=== PATIENT | female | born 1975 | race Caucasian/White ===

== ENCOUNTER 2021-10-10 16:56 | Outpatient (REF) | payer OTHER, SELFPAY ==
[2021-10-11 15:14] LABS: H Pylori Breath Test Negative (Negative)
== END 2021-10-10 16:57 | disposition home or self-care (01) ==
LOC: HO.LNP 16:56
PROVIDERS: Visit Provider Physician Assistant Surgical
DX: E66.9 Obesity, unspecified (principal)
CPT/HCPCS: 83013

== ENCOUNTER → 2021-11-02 12:00 | Outpatient (BNVA) | payer OTHER, SELFPAY | PROVIDERS: PCP Internal Medicine; Visit Provider Counselor Mental Health | DX: F41.1 Generalized anxiety disorder (principal); E66.9 Obesity, unspecified; G93.2 Benign intracranial hypertension | CPT/HCPCS: 90791; 97802 ==

== ENCOUNTER 2021-11-21 09:01 | Outpatient (REF) | payer OTHER, SELFPAY ==
--- NOTE | ~2021-11-21 | XR_ITS ---
EXAMINATION: XR CHEST CLINICAL INFORMATION: Obesity. COMPARISON: None TECHNIQUE: 2 views of the chest were obtained. FINDINGS: No significant abnormality is noted involving the heart, lungs, mediastinum, bony thorax or soft tissues. XR/XR chest 2V IMPRESSION: Unremarkable chest examination.
--- NOTE | 2021-11-21 09:10 | ECG_ITS ---
Test Reason : OBESITY Blood Pressure : / mmHG Vent. Rate : 058 BPM Atrial Rate : 058 BPM P-R Int : 168 ms QRS Dur : 080 ms QT Int : 400 ms P-R-T Axes : 026 005 025 degrees QTc Int : 392 ms Sinus bradycardia with sinus arrhythmia Otherwise normal ECG No previous ECGs available Referred By: Moshe Rene Electronically Signed By:JONI LIPSCOMB
[2021-11-21 09:37] LABS: MANUAL DIFF FLAG NO
[2021-11-21 10:08] LABS: Basophils Percent Auto 0.3 % (0-2); Eosinophils Absolute Auto 0.1 X10*3/uL (0.0-0.4); Eosinophils Percent Auto 1.8 % (0-4); Hematocrit 37.9 % (37.0-47.0); Hemoglobin 12.3 g/dl (12.0-16.0); Imm Gran Abs Auto 0.03 X10*3/uL (0.00-0.03); Imm Gran Pct Auto 0.4 % (0.0-0.4); Lymphocytes Absolute Auto 1.6 X10*3/uL (1.2-4.9); Lymphocytes Percent Auto 23.7 % (20-40); Mean Corpuscular HGB Conc 32.5 g/dl (31.0-35.0); Mean Corpuscular Hemoglobin 29.6 pg (27.0-33.0); Mean Corpuscular Volume 91.1 fL (80.0-98.0); Mean Platelet Volume 10.4 fL (9.4-12.3); Monocytes Absolute Auto 0.5 X10*3/uL (0.1-1.2); Monocytes Percent Auto 6.6 % (2-11); Neutrophils Absolute Auto 4.6 x10*3/uL (2.0-8.3); Neutrophils Percent Auto 67.2 % (45-73); Platelet Count 326 X10*3/uL (160-400); Red Blood Count 4.16 X10*6/uL (4.20-5.50); White Blood Count 6.8 X10*3/uL (4.8-10.8)
[2021-11-21 10:23] LABS: Estimated Average Glucose 120 mg/dL; Hemoglobin A1c % 5.8 %
[2021-11-21 10:41] LABS: Alanine Aminotransferase 13 U/L (0-31); Albumin Level 4.6 g/dL (3.5-5.0); Alkaline Phosphatase 58 U/L (39-117); Anion Gap 14 (12-20); Aspartate Amino Transferase 13 U/L (5-31); Bilirubin Total 0.5 mg/dL (0.0-1.0); Blood Urea Nitrogen 16 mg/dL (9-16); C Reactive Protein 0.58 mg/dL (< or = 0.50); Calcium 9.5 mg/dL (8.4-10.2); Carbon Dioxide 25 mmol/L (22-29); Chloride 105 mmol/L (96-108); Cholesterol 173 mg/dL; Estimated Glomerular Filt Rate > 60; Glucose Random 110 mg/dL (60-115); HDL Cholesterol 38 mg/dL; Iron 82 mcg/dL (30-160); LDL Cholesterol Calculated 121 mg/dl; Potassium 4.1 mmol/L (3.3-5.1); Sodium 140 mmol/L (135-145); Total Protein 7.4 g/dL (6.5-8.0); Triglycerides 74 mg/dL
[2021-11-21 11:00] LABS: Percent Iron Saturation 26 % (15-50); Total Iron Binding Capacity 317 mcg/dL (228-428); Unsaturated Iron Binding 235 ug/dL
[2021-11-21 11:04] LABS: Ferritin 208 ng/mL (10-250); TSH reflex Free T4 0.82 uIU/mL (0.32-4.0); Vitamin D 25-OH Total 57.3 ng/mL (>30)
[2021-11-21 11:32] LABS: Folate 10.1 ng/mL (> or = 4.0); Vitamin B12 697 pg/mL (200-900)
[2021-11-21 11:35] LABS: Insulin 8 uU/mL (2-29)
[2021-11-22 11:46] LABS: Calcium (PTHI) 9.6 mg/dL (8.6-10.2); PTHI 42 pg/mL (16-77)
[2021-11-24 16:17] LABS: Zinc 71 mcg/dL (60-130)
[2021-11-25 12:57] LABS: Vitamin B1 7 nmol/L (8-30)
[2021-11-25 17:47] LABS: Vitamin A 45 mcg/dL (38-98)
== END 2021-11-21 09:02 | disposition home or self-care (01) ==
LOC: HO.LAB 09:01
PROVIDERS: PCP Internal Medicine; Visit Provider Physician Assistant Surgical
DX: E66.9 Obesity, unspecified (principal)
CPT/HCPCS: 36415; 71046; 80053; 80061; 82306; 82607; 82728; 82746; 83036; 83525; 83540; 83970; 84425; 84443; 84590; 84630; 85025; 86140; 93005

== ENCOUNTER 2021-11-30 08:22 | Outpatient (REF) | payer OTHER, SELFPAY ==
--- NOTE | ~2021-11-30 | US_ITS ---
EXAMINATION: US COMPLETE ABDOMEN WITH LIVER ELASTOGRAPHY CLINICAL INFORMATION: Obesity. COMPARISON: None. TECHNIQUE: Real-time imaging of the abdominal viscera. Noninvasive ultrasound liver fibrosis assessment is performed using Wilfredo ElastPQ point quantification shear wave elastography (2D-SWE) with a C5-2 MHz transducer. Multiple elastography samples are obtained. FINDINGS: PANCREAS: Normal. ABDOMINAL AORTA: The proximal, middle, and distal aortic segments are normal in caliber. INFERIOR VENA CAVA: Visualized portions are normal. LIVER: Normal. The liver demonstrates normal size, contour and echogenicity. No focal lesion or intrahepatic biliary duct dilatation. The right lobe measures 14 cm in length. The left lobe measures 11 cm in length. Portal flow is normal/hepatopetal. Shear wave liver elastography median stiffness is 2.2 m/s (reference: normal median stiffness is 1.3 m/s or less). IQR/median stiffness to assess sampling precision is 0.11 (reference: good quality data set is IQR/median stiffness of 0.15 or less). GALLBLADDER: Normal. The gallbladder is physiologically distended without evidence of stones, sludge, polyps, wall thickening or pericholecystic fluid. COMMON BILE DUCT: Normal in caliber measuring 0.4 cm in diameter. RIGHT KIDNEY: Normal. No hydronephrosis. No renal calculi or focal parenchymal lesions. The kidney measures 12.9 cm in maximum dimension. LEFT KIDNEY: Normal. No hydronephrosis. No renal calculi or focal parenchymal lesions. The kidney measures 12.6 cm in maximum dimension. SPLEEN: Normal. The spleen measures 9.6 cm in maximum dimension. FREE FLUID: None. US/US abdomen comp w elastography IMPRESSION: 1. Unremarkable exam. 2. Liver elastography. Adequate liver sampling. Increased liver stiffness suggestive of compensated advanced chronic liver disease. REFERENCE: Society of Radiologists in Ultrasound Liver Stiffness Thresholds (2020): LIVER STIFFNESS THRESHOLDS: *Liver Stiffness equal or less than 1.3 m/s: High probability of being normal. *Liver Stiffness less than 1.7 m/s: In the absence of other known clinical signs, rules out compensated advanced chronic liver disease. *Liver Stiffness 1.7-2.1 m/s: Suggestive of compensated advanced chronic liver disease but need further test for confirmation. *Liver Stiffness over 2.1 m/s: Rules in compensated advanced chronic liver disease. *Liver Stiffness over 2.4 m/s: Suggestive of clinically significant portal hypertension. QUALITY OF DATA SET: *IQR/Median value equal or less than 0.15 implies a quality data set. *IQR/Median value over 0.15 implies a poor quality data set. SIGNIFICANT CHANGE FROM PRIOR EXAM: Significant change if liver stiffness measurement is 10% or greater from prior exam. OTHER CONSIDERATIONS: The stage of liver fibrosis may be overestimated in the setting of acute hepatitis, liver inflammation, elevated liver function tests, hepatic vascular congestion, obstructive cholestasis, non-fasting state, and infiltrative diseases such as amyloidosis and lymphoma. In some patients with NAFLD, the liver stiffness thresholds for compensated advanced chronic liver disease may be lower. In causes other than viral hepatitis and NAFLD, liver stiffness thresholds are not well established.
--- NOTE | ~2021-11-30 | FL_ITS ---
EXAMINATION: XR FLUOROSCOPY UPPER GI WITH AIR CLINICAL INFORMATION: Obesity COMPARISON: None TECHNIQUE: Upper GI was performed using thin and thick barium and effervescent granules. FINDINGS: Esophageal motility is normal. There is mild gastroesophageal reflux. No hernia is seen. The stomach and duodenum are normal-appearing. No fold thickening, mass, stricture or ulcer is seen. FLUOROSCOPY TIME: 0.3 minutes DOSE AREA PRODUCT: 3.3 echeverria per centimeter squared. 16 saved fluoroscopic images. FL/FL upper GI w air IMPRESSION: Mild gastroesophageal reflux otherwise unremarkable exam.
== END 2021-11-30 08:23 | disposition home or self-care (01) ==
LOC: HO.US 08:22
PROVIDERS: PCP Internal Medicine; Visit Provider Physician Assistant Surgical
DX: Z01.818 Encounter for other preprocedural examination (principal); E66.9 Obesity, unspecified
CPT/HCPCS: 74246; 76705; 76981

== ENCOUNTER 2021-12-09 08:27 | Outpatient (REF) | payer OTHER, SELFPAY ==
[2021-12-09 08:43] LABS: MANUAL DIFF FLAG NO
[2021-12-09 08:59] LABS: Basophils Percent Auto 0.4 % (0-2); Eosinophils Absolute Auto 0.2 X10*3/uL (0.0-0.4); Eosinophils Percent Auto 2.8 % (0-4); Hematocrit 38.2 % (37.0-47.0); Hemoglobin 12.5 g/dl (12.0-16.0); Imm Gran Abs Auto 0.02 X10*3/uL (0.00-0.03); Imm Gran Pct Auto 0.4 % (0.0-0.4); Lymphocytes Absolute Auto 1.5 X10*3/uL (1.2-4.9); Lymphocytes Percent Auto 25.9 % (20-40); Mean Corpuscular HGB Conc 32.7 g/dl (31.0-35.0); Mean Corpuscular Hemoglobin 29.6 pg (27.0-33.0); Mean Corpuscular Volume 90.5 fL (80.0-98.0); Mean Platelet Volume 10.2 fL (9.4-12.3); Monocytes Absolute Auto 0.3 X10*3/uL (0.1-1.2); Monocytes Percent Auto 5.9 % (2-11); Neutrophils Absolute Auto 3.7 x10*3/uL (2.0-8.3); Neutrophils Percent Auto 64.6 % (45-73); Platelet Count 267 X10*3/uL (160-400); Red Blood Count 4.22 X10*6/uL (4.20-5.50); Red Cell Distribution Width 12.3 % (11.0-16.0); White Blood Count 5.6 X10*3/uL (4.8-10.8)
[2021-12-09 09:39] LABS: Anion Gap 15 (12-20); Blood Urea Nitrogen 18 mg/dL (9-16); Calcium 9.9 mg/dL (8.4-10.2); Carbon Dioxide 26 mmol/L (22-29); Chloride 104 mmol/L (96-108); Estimated Glomerular Filt Rate > 60; Glucose Random 99 mg/dL (60-115); Potassium 4.5 mmol/L (3.3-5.1); Sodium 140 mmol/L (135-145)
== END 2021-12-09 08:28 | disposition home or self-care (01) ==
LOC: HO.LAB 08:27
PROVIDERS: Visit Provider Surgery
DX: E66.9 Obesity, unspecified (principal); G93.2 Benign intracranial hypertension; G47.33 Obstructive sleep apnea (adult) (pediatric); F41.1 Generalized anxiety disorder
CPT/HCPCS: 36415; 80048; 85025

== ENCOUNTER 2021-12-13 09:50 | Inpatient (IN) | payer OTHER, SELFPAY ==
[2021-12-08 10:34] VITALS: BMI 33.6
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
[2021-12-13] VITALS (13 sets, daily range): BP systolic 101–145; BP diastolic 53–76; PULSE 47–69; RESP 15–20; TEMP 36.4–36.9; O2SAT 95–100
[2021-12-13 10:11] LABS: UPreg QC Valid YES; Urine Pregnancy NEGATIVE (NEGATIVE)
[2021-12-13 10:30] LABS: COVID-19 Test Negative (Negative); IDNOW Serial# 16C4AD1C
--- NOTE | 2021-12-13 10:46 | MHC.SHP ---
Pre-Procedural Eval Section A Date of Service: 12/13/21 The patient is an INPATIENT: Yes The History & Physical has been completed within 30 days and I have reviewed it.: Yes Section B Chief Complaint: Obesity Allergies: Allergies Allergy/AdvReac Type Severity Reaction Status Date / Time vancomycin Allergy Severe Rash Verified 12/08/21 10:27 tetracycline AdvReac Intermediate told to Verified 12/08/21 10:27 avoid due to intercranial hypertension Plan I have reviewed the history and physical and performed a pertinent physical examination on my patient. No changes have occurred unless specified.
--- NOTE | 2021-12-13 10:47 | P.OP_ITS ---
Operative Note Operative Note Date of Service: 12/13/21 Narrative: Preop diagnosis: [obesity, ANALI, Pseudotumor cerebri, intracranial HTN] Postop diagnosis: [same] Procedure: [Laparoscopic sleeve gastrectomy; intraoperative upper GI endoscopy; gastropexy] Surgeon: Brice Ryan MD Assist: [Maty Jhaveri PA-C] Anesthesia: [GET] Estimated blood loss: [3cc] Specimen: [] Intraoperative findings: [Grossly normal liver, stomach; no evidence of a hiatal hernia] Indications: [The patient is a 46-year-old woman with a lifelong struggle with obesity who reports a heaviest weight of 245 lb. She unrolled in a different hospital bariatric surgery program and presented to our hospital with a weight of 209.4 lb and a BMI of 37.1 with a comorbidities of obstructive sleep apnea, pseudotumor cerebri, and intracranial hypertension causing visual field distortion. After multiple attempts of medical management that resulted in weight gain, the patient sought advice regarding surgical weight loss. After reviewing the options including continued medical management, 2nd opinion, option of a sleeve verses a bypass, the patient wanted to proceed with sleeve gastrectomy. I reviewed the inherent risks of this procedure which include, but are not limited to: Bleeding that could require another operation or blood transfusion; the inherent risks of transfusion reaction infectious disease from blood transfusions; the risk of staple line leaks that could cause sepsis, multi-system organ failure and ; the risk of mesenteric or deep vein thrombosis of the lower extremities that could cause a fatal pulmonary embolism was reviewed; the risk of GERD that could require conversion to gastric bypass was discussed; the risk of recurrent hiatal hernia, especially in the setting of weight regain was reviewed. The risk of weight regain if maladaptive eating and sedentary behavior continue was discussed. The importance of proper diet and increased activity to augment surgical weight loss and the fact that no operation would result in weight loss of poor dietary decisions and sedentary behavior are resumed were discussed at length and apparently understood. The patient had the option of having a sheet metal superintendent present and declined this option.] Procedure: [The patient was identified in the preoperative holding area by myself and again in the operating suite by myself and the team. Patient was placed supine on the operating table. Safety straps were utilized and a fo otboard utilized. The patient was induced in general endotracheal anesthesia administered with excellent effect. An appropriate time-out was performed. The patient's abdomen was then widely prepped and draped in the usual manner for surgery using chlorhexidine. Antibiotics per protocol were administered by Anesthesia. After infiltrating preemptive local in the skin and subcutaneous tissues in the epigastrium approximately 10cm from the xiphoid and the midline of the epigastrium, a stab incision was made sharply in the left subcostal abdomen and the Veress needle inserted without incident. An appropriate drop test was performed then a pneumoperitoneum of 15 mmHg was obtained using carbon dioxide. Opening pressures were 7 mmHg. Next, a 5 mm 0 degree scope over a 5 mm Optiview trocar was used to access the abdomen via the epigastric incision in the midline. Once the abdomen was entered, the the trocar obturator was removed and the laparoscope was used to confirm there was no injury from the Veress needle nor trocar insertion injury to the bowel or mesentery, then the scope was switched to a 5 mm 45 degree laparoscope. Next, using preemptive local, additional 5 mm trocars were placed under direct laparoscopic vision on the patient's left abdomen, then right and the 5 mm midline trocar upsized to a 12 mm to accommodate the stapler. The patient was then positioned in reverse Trendelenburg and the liver retractor deployed through the right lateral 5 mm trocar and secured. A 40 [place] ViSiGi bougie was inserted by Anesthesia per os and advanced to the stomach to decompress. It was then withdrawn to the GE junction all under direct laparoscopic vision. Dissection was begun along the greater curvature using the 5 mm [place] LigaSure for hemostasis and continued to the left kyaw of the diaphragm. Dissection was then carried towards the pylorus to 3-4 cm from the pylorus and retro gastric adhesions lysed. The gastroesophageal fat pad was carefully mobilized taking care to avoid injury to the esophagus and stomach and dissection carried towards the short gastrics taking care to avoid injury to the spleen and splenic artery. The diaphragmatic hiatus was carefully examined for a hernia. Next, the 40 Fr ViSiGi bougie was advanced by anesthesia under direct vision and laparoscopic guidance and positioned in the antrum approximately 3 cm from the pylorus using laparoscopic graspers to serve as a guide for a stapled sleeve gastrectomy. Stapling was performed with [employer]- LIBORIO stapler with a purple 45 and then orange 45 and 60 loads. The bougie served as a guide to maintain the same sleeve caliber to avoid stricture & sleeve distortion. The 10 mm clip lab animal technologist was used to apply additional clips to the staple line. Care was taken to be sure that the sleeve laid flat and was without stricture. Once the sleeve was complete, the portion of stomach was placed in the lower abdomen to be sent for permanent section. The staple line, gastrocolic omentum, spleen and short gastric areas were all inspected for hemostasis which was found to be good. The ViSiGi bougie used for a leak test by reducing the reverse Trendelenburg and instilling sterile saline. Anesthesia that ran of O2 at 1 L per minute via the tube and no bubbles were demonstrated from the staple line. Next, the bougie was withdrawn under laparoscopic vision used to suction the esophagus and hypopharynx and then discarded. Next, I broke scrub perform an on-table upper endoscopy to assess the sleeve and the esophagus and stomach. The patient was returned to neutral position and the Olympus 160 gastroscope was advanced taking care to preserve the endotracheal tube. The esophagus was intubated without incident. Minimal air was insufflated and the scope advanced into the newly formed sleeve. The staple line was inspected for hemostasis and the morphology of the sleeve appeared straight with a uniform diameter. Intraoperatively, there was no evidence of staple line leak seen during laparoscopy as air was insufflated via endoscope. The scope was then used to aspirate the air from the sleeve withdrawn and removed. I then rescrubbed to return to the operative field and again inspected the field for hemostasis. The patient was again placed in reverse Trendelenburg. A gastropexy was performed using 2-0 Polysorb suture to secure the sleeve gastrectomy to the gastrocolic omentum. After final assessment for hemostasis, the patient was returned to neutral position, a Raeann used to withdraw the stomach which was sent for permanent section. The fascia of the 12 mm midline was closed using an 0 Polysorb on a suture Passer under direct laparoscopic vision. The abdomen was then deflated and all trocars removed. The suture was then tied and the skin closed with 4-0 Monocryl subcuticular sutures. The abdomen was then washed and dried, benzoin and Steri-Strips applied followed by Band-Aids. The patient tolerated the procedure well was then extubated the recover in stable condition. All sponge needle and instrument counts were correct x2. At the patient's request, I contacted her mother, Cornelius, at [phone] by telephone to apprise her with the operation, findings and typical post-operative plan including diet and activity restrictions. Her questions seemed to be satisfactorily answered.]
[2021-12-13] MEDS: Scopolamine 1.5 MG PATCH.TD.3 TRANSDERMA (11:32)
[2021-12-13] MEDS: Lactated Ringers 1,000 ML 150 ML IVCONT (11:42)
--- NOTE | 2021-12-13 16:17 | P.DS_ITS ---
DS: Providers Provider Date of Service: 12/14/21 Date of admission: 12/13/21 09:50 Primary care physician: Mary Olvera MD DS: Summary Hospital Course Hospital Course: ADMITTING DIAGNOSIS: morbid obesity, ANALI, intracranial HTN DISCHARGE DIAGNOSIS: same, s/p laparoscopic sleeve gastrectomy PAST SURGICAL HISTORY: section PROCEDURE: upper endoscopy, laparoscopic sleeve gastrectomy DISCHARGE SUMMARY: History of Present Illness: The patient is a 46 year-old woman with a BMI of 38.0 kg/m2 and associated co- morbidities as described above. The patient had extensive work-up, lost 14 lbs preoperatively and was electively scheduled for laparoscopic, possible open sleeve gastrectomy and gastropexy. Risks and complications of the surgery were discussed with the patient in advance, particularly the possibility of , pulmonary embolism, anastomotic leak, bleeding, bowel injury, GERD, cardiac, renal or pulmonary complications. The patient understood all the risks and was in agreement with the surgical plan. Hospital Course: The patient underwent an uneventful laparoscopic sleeve gastrectomy with gastropexy on the day of admission. Postoperatively, the patient was transferred to the surgical floor. The patient received IV Acetaminophen and IV dilaudid for pain control. Patient was started on bariatric phase 1 diet POD #0. On postoperative day one, the patient was feeling well without nausea, vomiting, fevers, or tachycardia. The patient had some mild incisional pain and the abdomen was soft. On the morning of postoperative day one, the patient was continued on 1 ounce of water or ice every half hour. During the day, the patient did fairly well, having some incisional pain, but able to ambulate adequately and to tolerate liquids well. Since the patient is doing well, we decided that the patient was ready to be discharged. The patient was given instructions to follow-up with me next week and to call my office for any fever over 101, persistent abdominal pain, nausea, vomiting, GERD, symptoms of DVT such as calf tenderness, or leg swelling, or pulmonary embolism such as chest pain or shortness of breath. The patient was also instructed to drink 40-60 ounces of liquids per day using the 1-ounce cups. The patient had been given prescriptions for Tylenol for pain, Zofran prn for nausea, and pantoprazole and carafate previously. The patient was encouraged to ambulate and use the incentive spirometer. The patient was allowed to shower, but no baths, and encouraged to stay active at home. All of these instructions were given to the patient personally. All questions were answered and the patient understood all instructions, the instructions were also given to the patient in print. Time Spent with Patient Time attestation: Total time spent providing and/or coordinating discharge services: Discharge coordination time: Greater than 30 minutes Quality: Safe Use of Opioids Does Pt have an Active Cancer Diagnosis on the Problem List?: No Quality: Stroke Does the patient have a stroke diagnosis?: No Physical Exam Vital Signs: Vital Signs: Last Vital Signs Temp 97.9 F 12/13/21 11:33 Pulse 66 12/13/21 11:33 Resp 15 12/13/21 11:33 BP 111/66 12/13/21 11:33 Pulse Ox 100 12/13/21 11:33 O2 Del Method 12/13/21 11:33 BMI result Body Mass Index 33.6 DS: Data Data Completed and Pending Pending studies at discharge: Pending at discharge 12/13/21 15:39 Surgical [PTH] Routine Labs on day of discharge: Laboratory Results - last 24 hr 12/13/21 12/13/21 10:00 10:00 Urine Test NEGATIVE COVID-19 ([facility]) Negative COVID-19 Clin Com See Note Discharge Plan Discharge Anticipated Discharge Date/Time: 12/14/21 10:15 Patient Disposition: Home, Self-Care Discharge Diagnosis: s/p sleeve gastrectomy Referrals: Mary Olvera MD [Primary Care Provider] - 1 Week Discharge Medications: Continued pantoprazole 40 mg tablet,delayed release (DR/EC) 40 mg PO DAILY Qty: 30 2RF acetaminophen 500 mg/15 mL liquid 500 mg PO Q6H Qty: 237 2RF sucralfate [Carafate] 100 mg/mL suspension 10 ml PO BID Qty: 414 0RF ondansetron HCl 4 mg tablet 4 mg PO Q6-8H PRN (Reason: nausea and vomiting) Qty: 20 0RF Discontinued thiamine HCl (vitamin B1) 100 mg tablet 100 mg PO DAILY Qty: 30 2RF cbd liquid PO DAILY polyethylene glycol 3350 [Miralax] 17 gram powder in packet 17 g PO DAILY Qty: 14 0RF Rx Instructions: Two days before surgery: Mix 1 pack with 8 oz of liquid and consume 1 pack p er hour for a total of 7 pack; 1 day before surgery, consume the remaining 7 Packs following the same directions. Discharge Orders: Discharge Order (Routine); Ordered 12/14/21 Ordered By: Maty Jhaveri Activity on Discharge: No heavy lifting Stand Alone Forms: Patient Portal Discharge page Care Plan Goals: weight loss Health Concerns: obesity Plan of Treatment: No tub baths, sex or returning to work until discussed at first post op appointment. No exercise, alcohol, tobacco or illegal drug use. Continue to use incentive spirometer hourly while awake. Walk in home for 5- 10 minutes every 2 hours during the first week. Continue phase 1 diet today and start phase 2 diet tomorrow morning. Follow all instructions in the bariatric handbook and call with any questions. 1. Please call your doctor or come back to the emergency room should any new sym ptoms arise. 2. You will receive a courtesy call from [facility] 24-48 hours after discharge. 3. Activity: abstain from alcohol, practice limited stair climbing, no bending, no driving, no exercise, no illicit substances, no lifting, no sex, no tub bath, no work. 4. Diet: continue as discussed with bariatric team.. 5. Dressing Change/Wound Care: Do not change or remove surgical dressings unless they are wet or soiled. 6. Call your doctor if: - Your temperature exceeds 101.5 F - You experience excessive pain or swelling - You have an unexpected reaction to medication - You have excessive bleeding - You experience continued vomiting/nausea - Your incision begins to separate - Your incision shows signs of infection such as increased redness, swelling, excessive pain, heat, or drainage (light blood or clear fluid is normal) 7. General instructions: No lifting greater than 5 lbs for the next 4 weeks[address] driving within 24 hours of taking narcotic pain medications. If you do not move your bowels in the next 2 days, please take milk of magnesia over the counter. Please follow the post op diet and do not advance your diet until you are seen in the office in about 2 weeks. Please walk around your home every hour or two to prevent blood clots from forming in your legs. You do not need to wake from sleeping to walk. Please sleep in a bed or couch to prevent kinking at the hips and knees. Please take your incentive spirometer (your lung senior search marketing analyst) home with you and use it for the next few days to prevent pneumonias. You may shower, no hot tubs, baths or swimming pools. Please call the office with any questions or concerns such as increasing abdominal pain, fever, chills, shortness of breath, chest pain, leg pain or swelling, or redness or drainage from your incisions. Do not hesitate to contact the office with any questions at . The patient's medical history has been reviewed and they are considered low risk for post op DVT and therefore DVT prophylaxis is not considered necessary. Travel after surgery was reviewed. The patient has not disclosed any travel plans during the first 30 days after surgery and they have been advised that within the first 30 days after surgery any bus, plane, train or car travel over 2 hours in duration is contraindicated due to the possibility of developing blood clots from immobility. Any travel, needs to include periods of ambulation of 10 minutes in duration every 2 hours. The patient was instructed to discuss any plans for travel during this period with their bariatric surgeon. Assessment: stable post op sleeve gstrectomy
[2021-12-13] MEDS: HYDROmorphone HCl 0.5 MG/0.5 ML SYRINGE 0.25 MG IVPUSH ×2 (16:32→16:37)
[2021-12-13 16:54] LABS: Hematocrit 35.6 % (37.0-47.0); Hemoglobin 11.6 g/dl (12.0-16.0)
[2021-12-13] MEDS: Lactated Ringers 1,000 ML 100 ML IVCONT (17:00)
--- NOTE | 2021-12-13 17:07 | PM.PNGS ---
Subjective Subjective Date of Service: 12/13/21 Patient reports: still having pain Interval history: Seen in PACU Patient reports pain but no nausea nor vomiting Physical Exam Vital Signs: Vital Signs: Last Vital Signs Temp 97.5 F 12/13/21 16:17 Pulse 48 L 12/13/21 16:47 Resp 20 12/13/21 16:47 BP 112/67 12/13/21 16:47 Pulse Ox 98 12/13/21 16:47 O2 Del Method 12/13/21 16:47 O2 Flow Rate 2 12/13/21 16:47 BMI result Body Mass Index 33.6 Patient resting comfortably and arousable Objective Data Active Medications Fentanyl (Fentanyl Citrate/Pf 100 Mcg/2 Ml Vial) 25 mcg IVPUSH Q5M PRN; Protocol PRN Reason: Pain, Moderate (Pain Scale 4-6 Hydromorphone HCl (Hydromorphone Hcl 0.5 Mg/0.5 Ml Syringe) 0.25 mg IVPUSH Q5M PRN; Protocol PRN Reason: Pain, Severe (Pain Scale 7-10) Last Admin: 12/13/21 16:37 Dose: 0.25 mg Documented By: DAVID Lactated Ringer's (Lr) 1,000 mls @ 150 mls/hr IVCONT .Q6H40M JOSEPH Last Admin: 12/13/21 11:42 Dose: 150 mls/hr Documented By: GERMAIN Labs CBC & Chem 7: 12/13/21 16:45 12/13/21 16:45 Labs: Laboratory Results - last 24 hr 12/13/21 12/13/21 10:00 10:00 Urine Test NEGATIVE COVID-19 ([facility]) Negative COVID-19 Clin Com See Note Procedures Date of Service Date of Service: 12/13/21 Progress Note: A&P Assessment and plan (1) S/P laparoscopic sleeve gastrectomy: Status: Acute (2) Obesity (BMI 30-39.9): Status: Acute (3) Intracranial hypertension: Status: Acute (4) ANALI (obstructive sleep apnea): Status: Acute (5) Generalized anxiety disorder: Status: Acute Plan Start water when awake Out of bed later when awake See orders Time Spent With Patient Time: Total time spent is greater than 50% in coordination of care (as documented) at patient's floor/unit and/or counseling patient: Quality Stroke Does the patient have a stroke diagnosis?: No VTE Prior VTE?: No VTE Risk Level:: Surgical - moderate VTE Device Contraindication: N/A - Device Ordered VTE Drug Contraindication: Treatment Not Tolerated
[2021-12-13 17:10] LABS: Anion Gap 21 (12-20); Blood Urea Nitrogen 14 mg/dL (9-16); Calcium 8.7 mg/dL (8.4-10.2); Carbon Dioxide 17 mmol/L (22-29); Chloride 104 mmol/L (96-108); Creatinine Clr Calc Pharmacy 99.9; Estimated Glomerular Filt Rate > 60; Glucose Random 101 mg/dL (60-115); Potassium 4.1 mmol/L (3.3-5.1); Sodium 138 mmol/L (135-145)
[2021-12-13] MEDS: ceFAZolin Sodium/Dextrose,Iso 2 GM/50 ML PIGGYBACK IV (19:02)
[2021-12-13] MEDS: 0.9 % Sodium Chloride Flush 3 ML SYRINGE IVFLUSH (19:55)
[2021-12-13] MEDS: Metoclopramide HCl 10 MG/2 ML VIAL IVPUSH (19:55)
[2021-12-13] MEDS: Famotidine/PF 20 MG/2 ML VIAL IVPUSH (21:40)
[2021-12-13] MEDS: ondansetron HCL 4 MG/2 ML VIAL IVPUSH (21:40)
[2021-12-14] MEDS: Lactated Ringers 1,000 ML 100 ML IVCONT ×2 (01:52→12:32)
[2021-12-14] MEDS: Metoclopramide HCl 10 MG/2 ML VIAL IVPUSH ×3 (02:03→15:32)
[2021-12-14 03:26] VITALS: BP 142/68; PULSE 51; RESP 18; TEMP 37.1; O2SAT 95
--- NOTE | 2021-12-14 04:39 | PC.NURSE ---
around 0430 pt vomited a small amount, approximately 10 ml. pt c/o nausea, not due for nausea meds at this time, will medicate at 0530.
[2021-12-14] MEDS: ondansetron HCL 4 MG/2 ML VIAL IVPUSH ×2 (05:27→14:23)
[2021-12-14 05:53] LABS: MANUAL DIFF FLAG NO
[2021-12-14 06:00] LABS: Basophils Percent Auto 0.2 % (0-2); Hematocrit 37.5 % (37.0-47.0); Hemoglobin 12.4 g/dl (12.0-16.0); Imm Gran Pct Auto 0.6 % (0.0-0.4); Lymphocytes Absolute Auto 0.7 X10*3/uL (1.2-4.9); Lymphocytes Percent Auto 3.9 % (20-40); Mean Corpuscular HGB Conc 33.1 g/dl (31.0-35.0); Mean Corpuscular Hemoglobin 29.2 pg (27.0-33.0); Mean Corpuscular Volume 88.4 fL (80.0-98.0); Mean Platelet Volume 10.7 fL (9.4-12.3); Monocytes Absolute Auto 1.1 X10*3/uL (0.1-1.2); Monocytes Percent Auto 6.1 % (2-11); Neutrophils Absolute Auto 16.3 x10*3/uL (2.0-8.3); Neutrophils Percent Auto 89.2 % (45-73); Platelet Count 273 X10*3/uL (160-400); Red Blood Count 4.24 X10*6/uL (4.20-5.50); Red Cell Distribution Width 12.5 % (11.0-16.0); White Blood Count 18.2 X10*3/uL (4.8-10.8)
[2021-12-14 06:17] LABS: Anion Gap 20 (12-20); Blood Urea Nitrogen 8 mg/dL (9-16); Carbon Dioxide 16 mmol/L (22-29); Chloride 102 mmol/L (96-108); Creatinine Clr Calc Pharmacy 97.2; Estimated Glomerular Filt Rate > 60; Glucose Random 116 mg/dL (60-115); Potassium 4.2 mmol/L (3.3-5.1); Sodium 134 mmol/L (135-145)
--- NOTE | 2021-12-14 07:06 | P.PNGS_ITS ---
Subjective Subjective Date of Service: 12/14/21 Patient reports: nausea Interval history: The patient has had a rough overnight due to nausea and some episodes of vo miting. She notes that it is slightly improved but is not meeting discharge criteria regarding hydration. She otherwise denies pain in her chest, difficulty breathing, she does note incisional pain but denies any regurgitation or hematemesis. There is no deny if a LIBORIO reported. Physical Exam Vital Signs: Vital Signs: Last Vital Signs Temp 98.7 F 12/14/21 03:26 Pulse 51 12/14/21 03:26 Resp 18 12/14/21 03:26 BP 142/68 H 12/14/21 03:26 Pulse Ox 95 12/14/21 03:26 O2 Del Method 12/14/21 03:26 O2 Flow Rate 2.0 12/13/21 17:32 BMI result Body Mass Index 33.6 Patient appears nontoxic Dressings are clean dry and intact Abdomen is free of peritoneal sign, appropriate incisional tenderness is present Objective Data Active Medications Famotidine (Famotidine/Pf 20 Mg/2 Ml Vial) [address] [facility] Last Admin: 12/13/21 21:40 Dose: 20 mg Documented By: MANNY Fentanyl (Fentanyl Citrate/Pf 100 Mcg/2 Ml Vial) 25 mcg IVPUSH Q5M PRN; Protocol PRN Reason: Pain, Moderate (Pain Scale 4-6 Hydromorphone HCl (Hydromorphone Hcl 0.5 Mg/0.5 Ml Syringe) 0.25 mg IVPUSH Q5M PRN; Protocol PRN Reason: Pain, Severe (Pain Scale 7-10) Last Admin: 12/13/21 16:37 Dose: 0.25 mg Documented By: DAVID Hydromorphone HCl (Hydromorphone Hcl 0.5 Mg/0.5 Ml Syringe) 0.25 mg IVPUSH Q4H PRN; Protocol PRN Reason: Pain, Moderate (Pain Scale 4-6 Lactated Ringer's (Lr) 1,000 mls @ 100 mls/hr IVCONT .Q10H [facility] Last Admin: 12/14/21 01:52 Dose: 100 mls/hr Documented By: MANNY Acetaminophen (Ofirmev) 1,000 mg in 100 mls @ 16.7 mls/hr IV .Q6H [facility] Last Admin: 12/14/21 01:52 Dose: 16.7 mls/hr Documented By: MANNY Metoclopramide HCl (Metoclopramide Hcl 10 Mg/2 Ml Vial) 10 mg IVPUSH Q6H PRN PRN Reason: Nausea Last Admin: 12/14/21 02:03 Dose: 10 mg Documented By: MANNY Ondansetron HCl (Ondansetron Hcl 4 Mg/2 Ml Vial) [address] [facility] Last Admin: 12/14/21 05:27 Dose: 4 mg Documented By: MANNY Sodium Chloride (0.9 % Sodium Chloride Flush 3 Ml Syringe) [address] [facility] Last Admin: 12/13/21 19:55 Dose: 3 ml Documented By: MANNY Labs CBC & Chem 7: 12/14/21 05:04 12/14/21 05:04 Labs: Laboratory Results - last 24 hr 12/13/21 12/13/21 12/13/21 10:00 10:00 16:45 MCV MCH MCHC RDW Plt Count MPV Immature Gran % (Auto) Neut % (Auto) Lymph % (Auto) Cavalier % (Auto) Eos % (Auto) Baso % (Auto) Lymph # (Auto) Cavalier # (Auto) Eos # (Auto) Baso # (Auto) Abs Immat Gran (auto) Absolute Neuts (auto) Absolute Nucleated RBC Nucleated RBC % (auto) Anion Gap 21 H Estim Creat Clear Calc 99.9 Estimated GFR > 60 Random Glucose 101 Calcium 8.7 D Urine Test NEGATIVE COVID-19 ([facility]) Negative COVID-19 Clin Com See Note 12/14/21 12/14/21 05:04 05:04 MCV 88.4 MCH 29.2 MCHC 33.1 RDW 12.5 Plt Count 273 MPV 10.7 Immature Gran % (Auto) 0.6 H Neut % (Auto) 89.2 H Lymph % (Auto) 3.9 L Cavalier % (Auto) 6.1 Eos % (Auto) 0.0 Baso % (Auto) 0.2 Lymph # (Auto) 0.7 L Cavalier # (Auto) 1.1 Eos # (Auto) 0.0 Baso # (Auto) 0.0 Abs Immat Gran (auto) 0.10 H Absolute Neuts (auto) 16.3 H Absolute Nucleated RBC 0.000 Nucleated RBC % (auto) 0.0 Anion Gap 20 Estim Creat Clear Calc 97.2 Estimated GFR > 60 Random Glucose 116 H Calcium 9.0 Urine Test COVID-19 ([facility]) COVID-19 Clin Com Procedures Date of Service Date of Service: 12/14/21 Progress Note: A&P Assessment and plan (1) S/P laparoscopic sleeve gastrectomy: Status: Acute (2) Obesity (BMI 30-39.9): Status: Acute (3) Intracranial hypertension: Status: Acute (4) ANALI (obstructive sleep apnea): Status: Acute (5) Generalized anxiety disorder: Status: Acute Plan Continue antiemetics and IV hydration Patient is reassured that her operation went well that this is not uncommon. Will reassess this afternoon regarding nausea Continue bariatric phase I diet for now and re-evaluate in a few hours. Time Spent With Patient Time: Total time spent is greater than 50% in coordination of care (as documented) at patient's floor/unit and/or counseling patient: Quality Stroke Does the patient have a stroke diagnosis?: No VTE Prior VTE?: No VTE Risk Level:: Surgical - moderate VTE Device Contraindication: N/A - Device Ordered VTE Drug Contraindication: Treatment Not Tolerated
[2021-12-14 07:15] VITALS: BP 138/69; PULSE 52; RESP 18; TEMP 36.9; O2SAT 96
[2021-12-14] MEDS: Famotidine/PF 20 MG/2 ML VIAL IVPUSH (08:14)
--- NOTE | 2021-12-14 09:02 | MHC.CM.PN ---
EMR REVIEWED, PT ADMITTED S/P LAP SLEEVE GASTRECTOMY, CM MET W/PT WHO IS A&OX4, PT REPORTS SHE LIVES W/HER 3 CHILDREN, USES A CPAP ONLY DME AND NO HOME SERVICES, PT VERIFIES PCP LINSEY SOMERS AND HCP/MOM KARTHIKEYAN COOPER [phone]. PT C/O CONTINUED NAUSEA AND VOMITING, PT WILL D/C HOME NO SERVICES ONCE MEDICALLY CLEARED, PT TO ARRANGE TRANSPORT
--- NOTE | 2021-12-14 09:59 | HO.POSTANES ---
Post Anesthesia Evaluation Post Anesthesia Evaluation Vital Signs: Vital Signs Temp Pulse Resp BP Pulse Ox O2 Del Method 12/14/21 07:15 98.5 F 52 18 138/69 96 Room Air 12/14/21 03:26 98.7 F 51 18 142/68 H 95 Room Air 12/13/21 23:28 98.5 F 54 18 145/71 H 98 Room Air Anesthesia: General Endotracheal-GETA Mental Status: Awake Pain Control: Satisfactory Nausea/Vomiting: Severe Hydration: Adequate Anesthesia-Related Issues: No Anes. Related Issues
[2021-12-14 11:40] VITALS: BP 132/63; PULSE 53; RESP 16; TEMP 36.9; O2SAT 96
[2021-12-14 13:16] VITALS: O2SAT 95
[2021-12-14 14:59] VITALS: BP 139/66; PULSE 53; RESP 18; TEMP 37; O2SAT 97
== END 2021-12-14 18:03 | disposition home or self-care (01) | DRG 403 ==
LOC: HO.SSSA 10:00 → HO.S3 16:10
PROVIDERS: Nurse Practitioner; Physician Assistant; Admitting Provider Surgery; PCP Internal Medicine; Visit Provider Surgery
PROC: 0DB64Z3 Excision of Stomach, Percutaneous Endoscopic Approach, Vertical (ICD-10-PCS; CPT 43845; principal; 2021-12-13 13:20)
DX: E66.01 Morbid (severe) obesity due to excess calories (principal); F41.1 Generalized anxiety disorder; G47.33 Obstructive sleep apnea (adult) (pediatric); K21.9 Gastro-esophageal reflux disease without esophagitis; Z68.33 Body mass index [BMI] 33.0-33.9, adult; G93.2 Benign intracranial hypertension; Z20.822 Contact with and (suspected) exposure to COVID-19; Z87.891 Personal history of nicotine dependence; Z88.1 Allergy status to other antibiotic agents; Z79.899 Other long term (current) drug therapy
CPT/HCPCS: 43775; 43659; 36415; 80048; 81025; 85014; 85018; 85025; 86850; 86900; 86901; 87635; 88307; 88342; C9088; J0131; J0690; J1100; J1170; J2250; J2405; J2550; J2765; J2795; J3010

== ENCOUNTER → 2022-02-12 14:40 | Outpatient (BNVA) | payer OTHER, SELFPAY | PROVIDERS: PCP Internal Medicine; Visit Provider Dietitian, Registered | DX: E66.3 Overweight (principal); Z68.29 Body mass index [BMI] 29.0-29.9, adult | CPT/HCPCS: 97803 ==

== ENCOUNTER → 2022-03-12 10:48 | Outpatient (BNVA) | payer OTHER, SELFPAY | PROVIDERS: PCP Internal Medicine; Visit Provider Physician Assistant Surgical | DX: Z13.89 Encounter for screening for other disorder (principal) ==

== ENCOUNTER 2022-06-11 10:17 | Outpatient (REF) | payer OTHER, SELFPAY ==
[2022-06-11 11:21] LABS: MANUAL DIFF FLAG NO
[2022-06-11 11:46] LABS: Basophils Absolute Auto 0.1 X10*3/uL (0.0-0.2); Basophils Percent Auto 0.7 % (0-2); Eosinophils Absolute Auto 0.1 X10*3/uL (0.0-0.4); Eosinophils Percent Auto 1.5 % (0-4); Hematocrit 38.3 % (37.0-47.0); Hemoglobin 12.5 g/dl (12.0-16.0); Imm Gran Abs Auto 0.03 X10*3/uL (0.00-0.03); Imm Gran Pct Auto 0.3 % (0.0-0.4); Lymphocytes Percent Auto 23.5 % (20-40); Mean Corpuscular HGB Conc 32.6 g/dl (31.0-35.0); Mean Corpuscular Hemoglobin 31.3 pg (27.0-33.0); Mean Corpuscular Volume 95.8 fL (80.0-98.0); Mean Platelet Volume 10.5 fL (9.4-12.3); Monocytes Absolute Auto 0.5 X10*3/uL (0.1-1.2); Monocytes Percent Auto 6.1 % (2-11); Neutrophils Absolute Auto 5.8 x10*3/uL (2.0-8.3); Neutrophils Percent Auto 67.9 % (45-73); Platelet Count 286 X10*3/uL (160-400); Red Cell Distribution Width 13.5 % (11.0-16.0); White Blood Count 8.6 X10*3/uL (4.8-10.8)
[2022-06-11 11:58] LABS: Estimated Average Glucose 100 mg/dL; Hemoglobin A1c % 5.1 %
[2022-06-11 12:16] LABS: Anion Gap 14 (12-20); Blood Urea Nitrogen 23 mg/dL (9-16); C Reactive Protein < 0.10 mg/dL (< or = 0.50); Calcium 9.6 mg/dL (8.4-10.2); Carbon Dioxide 27 mmol/L (22-29); Chloride 106 mmol/L (96-108); Cholesterol 181 mg/dL; Estimated Glomerular Filt Rate > 60; Glucose Random 89 mg/dL (60-115); HDL Cholesterol 61 mg/dL; Iron 85 mcg/dL (30-160); LDL Cholesterol Calculated 105 mg/dl; Percent Iron Saturation 30 % (15-50); Potassium 4.5 mmol/L (3.3-5.1); Sodium 142 mmol/L (135-145); Total Iron Binding Capacity 286 mcg/dL (228-428); Triglycerides 76 mg/dL; Unsaturated Iron Binding 201 ug/dL
[2022-06-11 12:44] LABS: Ferritin 150 ng/mL (10-250); Folate 16.6 ng/mL (> or = 4.0); Insulin 4 uU/mL (2-29); TSH reflex Free T4 0.83 uIU/mL (0.32-4.0); Vitamin B12 939 pg/mL (200-900); Vitamin D 25-OH Total 78.5 ng/mL (>30)
[2022-06-13 13:49] LABS: PTHI 25 pg/mL (16-77)
[2022-06-14 05:38] LABS: Zinc 65 mcg/dL (60-130)
[2022-06-16 16:43] LABS: Vitamin A 53 mcg/dL (38-98)
[2022-06-18 13:17] LABS: Vitamin B1 31 nmol/L (8-30)
== END 2022-06-11 10:18 | disposition home or self-care (01) ==
LOC: HO.LAB 10:17
PROVIDERS: PCP Internal Medicine; Visit Provider Physician Assistant Surgical
DX: E66.3 Overweight (principal); G93.2 Benign intracranial hypertension; G47.33 Obstructive sleep apnea (adult) (pediatric); Z98.84 Bariatric surgery status
CPT/HCPCS: 36415; 80048; 80061; 82306; 82607; 82728; 82746; 83036; 83525; 83540; 83970; 84425; 84443; 84590; 84630; 85025; 86140

== ENCOUNTER 2022-12-13 08:54 | Outpatient (AMB) | payer OTHER, SELFPAY ==
--- NOTE | 2022-12-13 08:57 | MHC.OFFVISWM ---
Intake VS Expanded 12/13/22 09:03 BP 107/58 L Blood Pressure Location Rt brachial Blood Pressure Position Sitting Pulse 69 Pulse Source Pulse Oximeter Temp 97.7 F Temperature Source Temporal Artery Scan Pulse Oximetry 99 Oxygen Delivery Method Room Air Height 5 ft 3 in Weight 147 lb 9.6 oz BMI 26.1 Body Fat % 31.1 Body Fat Mass 45.8 Fat Free Mass 101.6 Visceral Fat Rating 6.0 Body Water % 49.2 Body Water Mass 72.6 Muscle Mass/Score 96.6 Basal Metabolic Rate/Score 1,375 Intake Visit Reasons: (ov) PO SWL 12/13/21 Allergies vancomycin Allergy (Severe, Verified 12/13/22 09:05) Rash tetracycline Adverse Reaction (Intermediate, Verified 12/13/22 09:05) told to avoid due to intercranial hypertension HPI HPI Comments History of Present Illness Details This?a?47?yo female who is s/p LSG without hiatal hernia repair on?12/13/21. Presents for 1 year post op visit. Weight today is 147.6 pounds, with a BMI of 26.1.? There has been a 76.8 pound weight loss,(initial weight 224.4 pounds) since starting the program on 07/18/21 reflecting a 34.2% total body weight loss and a weight loss of 42 pounds since surgery (operative weight 189.6 pounds) reflecting a 22.1% TBWL since surgery.? No complaints of nausea, emesis, abdominal pain or reflux. Reports infrequent but normal bowel movements every 1-3 days and uses stool softeners regularly. Celebrate MVI 1/2 chewable daily, Pedro + D,? 1 daily She states she is doing very well. She has been following a fairly strict meal plan and has been exercising daily. She has achieved a healthy weight and is concerned about the excess skin about her abdomen. This has caused her discomfort with exercising. She experiences pain and is unable to jog. She has also had intermittent rashes to the lower abdomen which she has treated with [id number] antifungals. She does not have a rash at today's visit but she has been instructed to call the office with any recurrence. Present meal plan includes: Celebrate 4 in 1 2 shakes per day with 2 scoops each She meal with 6 forks of protein and 4-6 forks of vegetables Drinking 60 oz water ? Exercise routine includes: Stair machine daily, weights, treadmill with incline walking backwards 7 days per week. 1/2 mile walk w dog Any post op complications: none ANALI: resolved DM: resolved HTN: never Hyperlipidemia: never GERD:?0-5 scale ??0 = no symptoms ??1 = symptoms noticeable but not bothersome 2 =symptoms bothersome but not daily ? 3 = symptoms bothersome and daily 4 = symptoms affect daily activities 5 = symptoms are incapacitating, unable to do daily activities ? How bad is the heartburn: 0 ? Heartburn while lying down: 0 ? Heartburn when standing up: 0 ? Heartburn after meals: 0 ? Does heartburn change your diet: 0 ? Does heartburn wake you up from sleep: 0 ? Do you have difficulty swallowin ? Do you have pain with swallowin ? 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 medication care manager to a significant other at home: Yes (3 sons, mother to help post-op) Do you presently have visiting nurse or other home services: No Alcohol intake: never Patient Tobacco Use Status: Former Tobacco user Quit Date: 1996 Tobacco use type: Cigarette service: No Current occupational status: employed Review of Systems Const All systems reviewed & are unremarkable except as noted in HPI and below Physical Exam Vital Signs: Last Vital Signs Temp 97.7 F 12/13/22 09:03 Pulse 69 12/13/22 09:03 BP 107/58 L 12/13/22 09:03 Pulse Ox 99 12/13/22 09:03 Oxygen Delivery Method Room Air 12/13/22 09:03 BMI result Body Mass Index 26.1 Const General: cooperative and no acute distress Orientation/consciousness: patient oriented x3 Resp Effort & Inspection: normal respiratory effort Auscultation: clear to auscultation bilaterally Cardio Rate: regular rate Rhythm: regular rhythm GI Inspection: Yes normal to inspection and Yes incision (well healed) Palpation (GI): Soft to palpation and no masses Skin Other: Excess skin of the lower abdomen. No current rash below the pannus, grade 2 Neuro General: patient oriented x3 Assessment & Plan Assessment & Plan (1) S/P laparoscopic sleeve gastrectomy: Code(s): Z98.84 - Bariatric surgery status Plan: Continue meal plan and exercise plan Check yearly labs Return to clinic in 3 months (2) Excess skin: Code(s): L98.7 - Excessive and redundant skin and subcutaneous tissue Plan: Patient was instructed to call the office should she develop a recurrence of her rash. She clearly has achieved significant weight loss and as a result has excess skin of her abdomen which is impacting her activities of daily living including pain with exercise and recurrent rashes. We will continue to monitor this, prescribing antifungals if indicated and consider medically necessary excess skin removal surgically. Orders: Orders IRON PROFILE Today E66.3 - Overweight, G93.2 - Benign intracranial hypertension, Z98.84 - Bariatric surgery status Complete Blood Count Auto Diff Today E66.3 - Overweight, G93.2 - Benign intracranial hypertension, Z98.84 - Bariatric surgery status C Reactive Protein Today E66.3 - Overweight, G93.2 - Benign intracranial hypertension, Z98.84 - Bariatric surgery status PTHI Today E66.3 - Overweight, G93.2 - Benign intracranial hypertension, Z98.84 - Bariatric surgery status Insulin Today E66.3 - Overweight, G93.2 - Benign intracranial hypertension, Z98.84 - Bariatric surgery status Lipid Panel Today E66.3 - Overweight, G93.2 - Benign intracranial hypertension, Z98.84 - Bariatric surgery status Vitamin B12 and Folate Today E66.3 - Overweight, G93.2 - Benign intracranial hypertension, Z98.84 - Bariatric surgery status Zinc Today E66.3 - Overweight, G93.2 - Benign intracranial hypertension, Z98.84 - Bariatric surgery status Vitamin B1 Today E66.3 - Overweight, G93.2 - Benign intracranial hypertension, Z98.84 - Bariatric surgery status Vitamin A Today E66.3 - Overweight, G93.2 - Benign intracranial hypertension, Z98.84 - Bariatric surgery status Ferritin Today E66.3 - Overweight, G93.2 - Benign intracranial hypertension, Z98.84 - Bariatric surgery status TSH reflex Free T4 Today E66.3 - Overweight, G93.2 - Benign intracranial hypertension, Z98.84 - Bariatric surgery status Vitamin D 25-OH Total Today E66.3 - Overweight, G93.2 - Benign intracranial hypertension, Z98.84 - Bariatric surgery status Basic Metabolic Panel Today E66.3 - Overweight, G93.2 - Benign intracranial hypertension, Z98.84 - Bariatric surgery status Coding Level of Care Code Est Pt Level 4 (13566) Diagnoses S/P laparoscopic sleeve gastrectomy Z98.84 Excess skin L98.7
[2022-12-13 09:03] VITALS: BP 107/58; PULSE 69; TEMP 36.5; O2SAT 99; BMI 26.1
== END 2022-12-13 09:45 | disposition home or self-care (01) ==
PROVIDERS: PCP Internal Medicine; Visit Provider Physician Assistant Surgical
DX: L98.7 Excessive and redundant skin and subcutaneous tissue (principal); E66.3 Overweight; Z68.26 Body mass index [BMI] 26.0-26.9, adult; Z90.3 Acquired absence of stomach [part of]; Z98.84 Bariatric surgery status
CPT/HCPCS: 99214

== ENCOUNTER 2022-12-13 08:54 | Outpatient (REF) | payer OTHER, SELFPAY ==
[2022-12-13 10:04] LABS: MANUAL DIFF FLAG NO
[2022-12-13 10:54] LABS: Basophils Percent Auto 0.5 % (0-2); Eosinophils Absolute Auto 0.1 X10*3/uL (0.0-0.4); Eosinophils Percent Auto 1.8 % (0-4); Hematocrit 37.4 % (37.0-47.0); Hemoglobin 12.1 g/dl (12.0-16.0); Imm Gran Abs Auto 0.02 X10*3/uL (0.00-0.03); Imm Gran Pct Auto 0.3 % (0.0-0.4); Lymphocytes Percent Auto 25.9 % (20-40); Mean Corpuscular HGB Conc 32.4 g/dl (31.0-35.0); Mean Corpuscular Hemoglobin 31.3 pg (27.0-33.0); Mean Corpuscular Volume 96.6 fL (80.0-98.0); Mean Platelet Volume 10.1 fL (9.4-12.3); Monocytes Absolute Auto 0.5 X10*3/uL (0.1-1.2); Monocytes Percent Auto 5.8 % (2-11); Neutrophils Absolute Auto 5.1 x10*3/uL (2.0-8.3); Neutrophils Percent Auto 65.7 % (45-73); Platelet Count 281 X10*3/uL (160-400); Red Blood Count 3.87 X10*6/uL (4.20-5.50); Red Cell Distribution Width 12.1 % (11.0-16.0); White Blood Count 7.8 X10*3/uL (4.8-10.8)
[2022-12-13 11:41] LABS: Anion Gap 13 (12-20); Blood Urea Nitrogen 20 mg/dL (9-16); C Reactive Protein < 0.10 mg/dL (< or = 0.50); Calcium 9.6 mg/dL (8.4-10.2); Carbon Dioxide 26 mmol/L (22-29); Chloride 105 mmol/L (96-108); Cholesterol 194 mg/dL (<200); Estimated Glomerular Filt Rate > 60; Glucose Random 87 mg/dL (60-115); HDL Cholesterol 70 mg/dL (>40); Iron 126 mcg/dL (30-160); LDL Cholesterol Calculated 96 mg/dL (<100); Percent Iron Saturation 46 % (15-50); Potassium 3.9 mmol/L (3.3-5.1); Sodium 140 mmol/L (135-145); Total Iron Binding Capacity 276 mcg/dL (228-428); Triglycerides 143 mg/dL (<150); Unsaturated Iron Binding 150 ug/dL
[2022-12-13 12:02] LABS: Ferritin 150 ng/mL (10-250); Insulin 10 uU/mL (2-29); TSH reflex Free T4 0.55 uIU/mL (0.32-4.0); Vitamin D 25-OH Total 80.2 ng/mL (>30)
[2022-12-13 12:06] LABS: Folate > 20.0 ng/mL (> or = 4.0); Vitamin B12 1078 pg/mL (200-900)
[2022-12-17 13:14] LABS: Zinc 60 mcg/dL (60-130)
[2022-12-18 15:48] LABS: Calcium (PTHI) 9.6 mg/dL (8.6-10.2); PTHI 35 pg/mL (16-77)
[2022-12-19 14:03] LABS: Vitamin A 56 mcg/dL (38-98)
[2022-12-19 15:19] LABS: Vitamin B1 36 nmol/L (8-30)
== END 2022-12-13 08:55 | disposition home or self-care (01) ==
LOC: HO.LAB 08:54
PROVIDERS: PCP Internal Medicine; Visit Provider Physician Assistant Surgical
DX: E66.3 Overweight (principal); G93.2 Benign intracranial hypertension; Z71.3 Dietary counseling and surveillance; Z68.26 Body mass index [BMI] 26.0-26.9, adult; Z98.84 Bariatric surgery status
CPT/HCPCS: 36415; 80048; 80061; 82306; 82607; 82728; 82746; 83525; 83540; 83970; 84425; 84443; 84590; 84630; 85025; 86140

== ENCOUNTER 2023-04-10 11:51 | Outpatient (AMB) | payer OTHER, SELFPAY ==
--- NOTE | 2023-04-10 10:28 | MHC.OFFVISWM ---
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 Presents for 1 year 4 month post op visit. Weight today is 152 pounds, with a BMI of 26.9.? There has been a 72.4 pound weight loss,(initial weight 224.4 pounds, max was 240 pounds in February 2021.) since starting the program on 07/18/21 reflecting a 32.2% total body weight loss and a weight loss of 37.6 pounds since surgery (operative weight 189.6 pounds) reflecting a 19.8% TBWL since surgery.? No complaints of nausea, emesis, abdominal pain or reflux. Reports infrequent but normal bowel movements every 1-3 days and uses stool softeners regularly. Celebrate MVI 1/2 chewable daily, Pedro + D,? 1 daily She states she is doing very well. She has been following a fairly strict meal plan and has been exercising daily. She has achieved a healthy weight and is concerned about the excess skin about her abdomen. This has caused her discomfort with exercising. She experiences pain and is unable to jog, the increased skin of her abdomen prohibits her from running and she has pain with exercise, specifically the stair machine and treadmill. She has also had intermittent rashes to the lower abdomen which she has treated with [id number] antifungals and prescription antifungals with resolution but return shortly after treatment. She has to wear additional clothing to create a barrier between the skin fold contacts and this is also distressing for her and causes difficulty wearing proper fitting clothes. Her ADL, specific to genital hygiene requires multiple times of cleaning to keep the area free of infections and irritations. Present meal plan includes: shake, meal, shake Celebrate 4 in 1 2 shakes per day with 2 scoops each She meal with 7 forks of protein and 7 forks of vegetables Drinking 60 oz water ? Exercise routine includes: Stair machine daily, weights, treadmill with incline walking backwards 7 days per week. 1/2 mile walk w dog [facility] Medical History Pseudotumor cerebri Frequent headaches History of lumbar puncture Low back pain Constipation GERD (gastroesophageal reflux disease) Insomnia Anxiety History of panic attacks PTSD (post-traumatic stress disorder) Depression Surgical History S/P laparoscopic sleeve gastrectomy Hx of colonoscopy Hx of laparoscopy H/O section Social History Are you a primary spiritual care coordinator to a significant other at home: Yes (3 sons, mother to help post-op) Do you presently have visiting nurse or other home services: No Alcohol intake: never Patient Tobacco Use Status: Former Tobacco user Quit Date: 1996 Tobacco use type: Cigarette service: No Current occupational status: employed Assessment & Plan Assessment & Plan (1) Overweight with body mass index (BMI) 25.0-29.9: Code(s): E66.3 - Overweight Plan: Patient is doing very well from a weight loss standpoint. She has had a stable weight. She is going to the gym 7 days a week and is overall very satisfied with her weight loss and meal plan. She is dissatisfied with the excess skin of her abdomen, this has caused her significant problems and we will continue to follow closely. We will have her return to the office for a phone appointment in about a month and in person for her 18 month postop visit at which point we will photo document and submit to her insurance for medically necessary skin removal surgery. (2) Excess skin: Code(s): L98.7 - Excessive and redundant skin and subcutaneous tissue Plan: Continue with antifungals as directed. Continue with clothing barrier as best as she is able. She has done very well in her weight loss journey and has maintained a stable weight. We will photo document and submit for approval for medically necessary skin removal surgery of her abdomen at her postop 18 month in office visit. Telehealth Telehealth Location of provider rendering services: practice address Location of patient: address on file Patient Identification confirmed using: Name, : Yes Telehealth method: voice only Patient verbally consented to treatment: Yes Patient verbally consented to billing insurance company: Yes Patient informed of any privacy concerns related to visit: Yes Minutes spent on Phone/Video with Pt.: 15 Coding Level of Care Code Tele Est Pt Level 3 (30188) Diagnoses Overweight with body mass index (BMI) 25.0-29.9 E66.3 Excess skin L98.7 Time Spent (min) 25
[2023-04-10 10:49] VITALS: BMI 26.9
== END 2023-04-10 11:58 | disposition home or self-care (01) ==
LOC: HO.HBS 11:51
PROVIDERS: PCP Internal Medicine; Visit Provider Physician Assistant Surgical
DX: E66.3 Overweight (principal); L98.7 Excessive and redundant skin and subcutaneous tissue
CPT/HCPCS: 99213

== ENCOUNTER → 2023-04-10 11:51 | Outpatient (BNVA) | payer OTHER, SELFPAY | PROVIDERS: PCP Internal Medicine; Visit Provider Physician Assistant Surgical | DX: Z98.84 Bariatric surgery status (principal); E66.3 Overweight; G93.2 Benign intracranial hypertension ==

== ENCOUNTER 2023-05-08 14:33 | Outpatient (AMB) | payer OTHER, SELFPAY ==
[2023-05-08 11:42] VITALS: BMI 27.0
--- NOTE | 2023-05-08 11:42 | A.OFFVIS_ITS ---
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 Presents for 1 year 5 month pos t op visit. Weight today is 152.5 po unds, with a BMI o f 27.? There has b een a 71.9 pound w eight loss,(initia l weight 224.4 debra nds, max was 240 p ounds in January/ February 2021.) si nce starting the p rogram on 07/18/21 reflecting a 32.1% total body weight loss and a weight loss of 37.1 poun ds since surgery ( operative weight 1 89.6 pounds) refle cting a 19.7% TBWL since surgery.? N o complaints of na usea, emesis, abdo santino pain or refl ux. Reports infreq uent but normal shavon wel movements ever y 1-3 days and use s stool softeners regularly. Celebra te MVI 1/2 chewabl e daily, Pedro + D,? 1 daily She stat es she is doing ve ry well. She has been following a f airly strict meal plan and has been exercising daily. She has achieved a healthy weight a nd is concerned ab out the excess ski n about her abdome n. This has cause d her discomfort w ith exercising. S he experiences barak n and is unable to jog, the increase d skin of her abdo men prohibits her from running and s he has pain with e xercise, specifica lly the stair mach ine and treadmill. She has also had intermittent rash es to the lower ab domen which she jama s treated with ove [id number] anti fungals and prescr iption antifungals with resolution b ut return shortly after treatment. She has to wear ad ditional clothing to create a ellen r between the skin fold contacts and this is also dist ressing for her an d causes difficult y wearing proper f itting clothes. H er ADL, specific t o genital hygiene requires multiple times of cleaning to keep the area f ree of infections and irritations. Present meal zak n includes: shake, meal, shake Celeb rate 4 in 1 2 donavon es per day with 2 scoops each w unsw eetened almond mil k one meal with 7 forks of protein a nd 7 forks of vege tables Drinking 6 0 oz water ? Exer cise routine inclu jessa: Stair machine daily, weights, t readmill with incl ine walking backwa rds, 45 minutes, 5 50-600 calories 7 days per week. 1 /2 mile walk w dog PFSH Medical History Pseudotumor cerebri Frequent headaches History of lumbar puncture Low back pain Constipation GERD (gastroesophageal reflux disease) Insomnia Anxiety History of panic attacks PTSD (post-traumatic stress disorder) Depression Surgical History S/P laparoscopic sleeve gastrectomy Hx of colonoscopy Hx of laparoscopy H/O section Social History Are you a primary director of managed care to a significant other at home: Yes (3 sons, mother to help post-op) Do you presently have visiting nurse or other home services: No Alcohol intake: never Patient Tobacco Use Status: Former Tobacco user Quit Date: 1996 Tobacco use type: Cigarette service: No Current occupational status: employed Assessment & Plan Assessment & Plan (1) S/P laparoscopic sleeve gastrectomy: Code(s): Z98.84 - Bariatric surgery status Plan: Patient has done well and made excellent progress. She has maintained a stable and healthy weight over the last 6 months. She is acutely aware of her meal plan and exercise regimen. She exercises daily and makes very healthy choices if she is away from home. She will return to the office for her 18 month postop visit in June. The issue is her excess skin, negatively impacting her life, ADLs and exercise capacity. (2) Excess skin: Code(s): L98.7 - Excessive and redundant skin and subcutaneous tissue Plan: Patient has made excellent progress from a weight loss standpoint. She has maintained a healthy stable weight over the last 6 months. She has lost over 30% of her total body weight since beginning this weight loss journey and as a result has developed excess skin of her abdomen. This has caused recurrent rashes, pain and discomfort. The rashes do improve with antifungal treatment although recur. She has had to wear additional clothing as a barrier, has had to increase her hygiene regimen to include excessive washing and drying of the skin. Her exercise capacity and has been limited as it causes her discomfort if she were to jog. Her ADLs are affected by means of requiring increased genital hygiene and difficulty wearing clothes due to the excess skin. She is most appropriate for a medically necessary skin removal procedure. We will have her come into the office for her 18 month postop visit for photo documentation and submission to her insurance company for approval for recommended panniculectomy. Telehealth Telehealth Location of provider rendering services: practice address Location of patient: other Patient Identification confirmed using: Name, : Yes Telehealth method: voice only Patient verbally consented to treatment: Yes Patient verbally consented to billing insurance company: Yes Patient informed of any privacy concerns related to visit: Yes Minutes spent on Phone/Video with Pt.: 10 Coding Level of Care Code Tele Est Pt Level 3 (10771) Diagnoses S/P laparoscopic sleeve gastrectomy Z98.84 Excess skin L98.7 Time Spent (min) 15
== END 2023-05-08 14:34 | disposition home or self-care (01) ==
LOC: HO.HBS 14:34
PROVIDERS: PCP Internal Medicine; Visit Provider Physician Assistant Surgical
DX: L98.7 Excessive and redundant skin and subcutaneous tissue (principal); E66.3 Overweight; Z68.27 Body mass index [BMI] 27.0-27.9, adult; Z90.3 Acquired absence of stomach [part of]; Z98.84 Bariatric surgery status
CPT/HCPCS: 99212

== ENCOUNTER → 2023-05-08 14:33 | Outpatient (BNVA) | payer OTHER, SELFPAY | PROVIDERS: PCP Internal Medicine; Visit Provider Physician Assistant Surgical | DX: Z98.84 Bariatric surgery status (principal); E66.3 Overweight; G93.2 Benign intracranial hypertension ==

== ENCOUNTER 2023-06-14 08:11 | Outpatient (REF) | payer OTHER, SELFPAY ==
[2023-06-14 09:32] LABS: MANUAL DIFF FLAG NO
[2023-06-14 10:10] LABS: Basophils Percent Auto 0.5 % (0-2); Eosinophils Absolute Auto 0.2 X10*3/uL (0.0-0.4); Eosinophils Percent Auto 2.6 % (0-4); Hematocrit 38.6 % (37.0-47.0); Hemoglobin 12.8 g/dl (12.0-16.0); Lymphocytes Absolute Auto 1.7 X10*3/uL (1.2-4.9); Mean Corpuscular HGB Conc 33.2 g/dl (31.0-35.0); Mean Corpuscular Hemoglobin 30.8 pg (27.0-33.0); Mean Platelet Volume 9.9 fL (9.4-12.3); Monocytes Absolute Auto 0.5 X10*3/uL (0.1-1.2); Monocytes Percent Auto 7.2 % (2-11); Neutrophils Absolute Auto 4.2 x10*3/uL (2.0-8.3); Neutrophils Percent Auto 63.7 % (45-73); Platelet Count 264 X10*3/uL (160-400); Red Blood Count 4.15 X10*6/uL (4.20-5.50); Red Cell Distribution Width 12.2 % (11.0-16.0); White Blood Count 6.5 X10*3/uL (4.8-10.8)
[2023-06-14 10:41] LABS: Estimated Average Glucose 114 mg/dL; Hemoglobin A1c % 5.6 % (<6.0)
[2023-06-14 11:33] LABS: Anion Gap 10 (12-20); Blood Urea Nitrogen 25 mg/dL (9-16); C Reactive Protein < 0.10 mg/dL (< or = 0.50); Calcium 9.7 mg/dL (8.4-10.2); Carbon Dioxide 27 mmol/L (22-29); Chloride 107 mmol/L (96-108); Cholesterol 173 mg/dL (<200); Estimated Glomerular Filt Rate > 60; Glucose Random 93 mg/dL (60-115); HDL Cholesterol 70 mg/dL (>40); Iron 123 mcg/dL (30-160); LDL Cholesterol Calculated 92 mg/dL (<100); Percent Iron Saturation 42 % (15-50); Potassium 4.4 mmol/L (3.3-5.1); Sodium 140 mmol/L (135-145); Total Iron Binding Capacity 294 mcg/dL (228-428); Triglycerides 59 mg/dL (<150); Unsaturated Iron Binding 171 ug/dL
[2023-06-14 11:52] LABS: Ferritin 116 ng/mL (10-250); Insulin 4 uU/mL (2-29); TSH reflex Free T4 0.59 uIU/mL (0.32-4.0); Vitamin D 25-OH Total 88.4 ng/mL (>30)
[2023-06-14 12:12] LABS: Folate > 20.0 ng/mL (> or = 4.0); Vitamin B12 1129 pg/mL (200-900)
[2023-06-18 03:09] LABS: Zinc 70 mcg/dL (60-130)
[2023-06-19 05:49] LABS: Vitamin A 56 mcg/dL (38-98)
[2023-06-20 16:23] LABS: Vitamin B1 44 nmol/L (8-30)
== END 2023-06-14 08:12 | disposition home or self-care (01) ==
LOC: HO.LAB 08:11
PROVIDERS: PCP Internal Medicine; Visit Provider Physician Assistant Surgical
DX: E66.3 Overweight (principal); G93.2 Benign intracranial hypertension; Z98.84 Bariatric surgery status; L98.7 Excessive and redundant skin and subcutaneous tissue; F41.1 Generalized anxiety disorder
CPT/HCPCS: 36415; 80048; 80061; 82306; 82607; 82728; 82746; 83036; 83525; 83540; 84425; 84443; 84590; 84630; 85025; 86140

== ENCOUNTER 2023-06-14 08:11 | Outpatient (AMB) | payer OTHER, SELFPAY ==
--- NOTE | 2023-06-14 08:17 | MHC.OFFVISWM ---
Intake VS Expanded 06/14/23 08:31 BP 124/71 Blood Pressure Location Rt brachial Blood Pressure Position Sitting Pulse 71 Pulse Source Pulse Oximeter Temp 97.6 F Temperature Source Temporal Artery Scan Pulse Oximetry 99 Oxygen Delivery Method Room Air Height 5 ft 3 in Weight 156 lb 12.8 oz BMI 27.8 Body Fat % 34.5 Body Fat Mass 54.0 Fat Free Mass 102.8 Visceral Fat Rating 7.0 Body Water % 46.7 Body Water Mass 73.2 Muscle Mass/Score 97.4 Basal Metabolic Rate/Score 1,401 Intake Visit Reasons: ov PO SWL 12/13/21 Allergies vancomycin Allergy (Severe, Verified 12/13/22 09:05) Rash tetracycline Adverse Reaction (Intermediate, Verified 12/13/22 09:05) told to avoid due to intercranial hypertension PFSH Medical History Pseudotumor cerebri Frequent headaches History of lumbar puncture Low back pain Constipation GERD (gastroesophageal reflux disease) Insomnia Anxiety History of panic attacks PTSD (post-traumatic stress disorder) Depression Surgical History S/P laparoscopic sleeve gastrectomy Hx of colonoscopy Hx of laparoscopy H/O section Social History Are you a primary small animal caretaker to a significant other at home: Yes (3 sons, mother to help post-op) Do you presently have visiting nurse or other home services: No Alcohol intake: never Patient Tobacco Use Status: Former Tobacco user Quit Date: 1996 Tobacco use type: Cigarette service: No Current occupational status: employed Physical Exam Vital Signs: Last Vital Signs Temp 97.6 F 06/14/23 08:31 Pulse 71 06/14/23 08:31 BP 124/71 06/14/23 08:31 Pulse Ox 99 06/14/23 08:31 Oxygen Delivery Method Room Air 06/14/23 08:31 BMI result Body Mass Index 27.8 Assessment & Plan Assessment & Plan Orders: Orders Insulin Today E66.3 - Overweight, G93.2 - Benign intracranial hypertension, Z98.84 - Bariatric surgery status Complete Blood Count Auto Diff Today E66.3 - Overweight, G93.2 - Benign intracranial hypertension, Z98.84 - Bariatric surgery status IRON PROFILE Today E66.3 - Overweight, G93.2 - Benign intracranial hypertension, Z98.84 - Bariatric surgery status C Reactive Protein Today E66.3 - Overweight, G93.2 - Benign intracranial hypertension, Z98.84 - Bariatric surgery status TSH reflex Free T4 Today E66.3 - Overweight, G93.2 - Benign intracranial hypertension, Z98.84 - Bariatric surgery status Vitamin D 25-OH Total Today E66.3 - Overweight, G93.2 - Benign intracranial hypertension, Z98.84 - Bariatric surgery status Hemoglobin A1c Today E66.3 - Overweight, G93.2 - Benign intracranial hypertension, Z98.84 - Bariatric surgery status Lipid Panel Today E66.3 - Overweight, G93.2 - Benign intracranial hypertension, Z98.84 - Bariatric surgery status Vitamin B12 and Folate Today E66.3 - Overweight, G93.2 - Benign intracranial hypertension, Z98.84 - Bariatric surgery status Zinc Today E66.3 - Overweight, G93.2 - Benign intracranial hypertension, Z98.84 - Bariatric surgery status Vitamin B1 Today E66.3 - Overweight, G93.2 - Benign intracranial hypertension, Z98.84 - Bariatric surgery status Vitamin A Today E66.3 - Overweight, G93.2 - Benign intracranial hypertension, Z98.84 - Bariatric surgery status Ferritin Today E66.3 - Overweight, G93.2 - Benign intracranial hypertension, Z98.84 - Bariatric surgery status Basic Metabolic Panel Today E66.3 - Overweight, G93.2 - Benign intracranial hypertension, Z98.84 - Bariatric surgery status Coding
--- NOTE | 2023-06-14 08:17 | MHC.OFFVISWM ---
Intake VS Expanded 06/14/23 08:31 BP 124/71 Blood Pressure Location Rt brachial Blood Pressure Position Sitting Pulse 71 Pulse Source Pulse Oximeter Temp 97.6 F Temperature Source Temporal Artery Scan Pulse Oximetry 99 Oxygen Delivery Method Room Air Height 5 ft 3 in Weight 156 lb 12.8 oz BMI 27.8 Body Fat % 34.5 Body Fat Mass 54.0 Fat Free Mass 102.8 Visceral Fat Rating 7.0 Body Water % 46.7 Body Water Mass 73.2 Muscle Mass/Score 97.4 Basal Metabolic Rate/Score 1,401 Intake Visit Reasons: ov PO SWL 12/13/21 Allergies vancomycin Allergy (Severe, Verified 12/13/22 09:05) Rash tetracycline Adverse Reaction (Intermediate, Verified 12/13/22 09:05) told to avoid due to intercranial hypertension HPI HPI Comments History of Present Illness Details This?a?48?yo female who is s/p LSG without hiatal hernia repair on?12/13/21. Presents for 1 year 6 month post op visit. Weight today is 156.8 pounds, with a BMI of 27.8.? There has been a 67.6 pound weight loss,(initial weight 224.4 pounds, max was 240 pounds in February 2021.) since starting the program on 07/18/21 reflecting a 30.1% total body weight loss and a weight loss of 32.8 pounds since surgery (operative weight 189.6 pounds) reflecting a 17.2% TBWL since surgery.? No complaints of nausea, emesis, abdominal pain or reflux. Reports infrequent but normal bowel movements every 1-3 days and uses stool softeners regularly. Celebrate MVI 1/2 chewable daily, Pedro + D,? 1 daily. She reports that she has begun experiencing increased sweating and some abdominal bloating, concerned for menopause. She has an upcoming appointment with her OBGYN. She has been following a fairly strict meal plan and has been exercising daily. She has achieved a healthy weight and is concerned about the excess skin about her abdomen. This has caused her discomfort with exercising. She experiences pain and burning to the skin and is unable to jog, the increased skin of her abdomen prohibits her from running and she has pain with exercise, specifically the stair machine and treadmill. She has also had intermittent rashes to the lower abdomen which she has treated with [id number] antifungals and prescription antifungals with resolution but return shortly after treatment. She has to wear additional clothing to create a barrier between the skin fold contacts and this is also distressing for her and causes difficulty wearing proper fitting clothes. Her ADL, specific to genital hygiene requires multiple times of cleaning to keep the area free of infections and irritations. Present meal plan includes: shake, meal, shake Celebrate 4 in 1, 2 shakes per day with 2 scoops each She meal with 7 forks of protein and 7 forks of vegetables Drinking 60 oz water ? Exercise routine includes: Stair machine daily, weights, treadmill with incline walking backwards, despite the discomfort of her lower abdominal skin rash 7 days per week. 1/2 mile walk w dog Any post op complications: none ANALI: resolved DM: resolved HTN: never Hyperlipidemia: never GERD:?0-5 scale ??0 = no symptoms ??1 = symptoms noticeable but not bothersome 2 =symptoms bothersome but not daily ? 3 = symptoms bothersome and daily 4 = symptoms affect daily activities 5 = symptoms are incapacitating, unable to do daily activities ? How bad is the heartburn: 0 ? Heartburn while lying down: 0 ? Heartburn when standing up: 0 ? Heartburn after meals: 0 ? Does heartburn change your diet: 0 ? Does heartburn wake you up from sleep: 0 ? Do you have difficulty swallowin ? Do you have pain with swallowin ? If you take medicine for your reflux, does this affect your daily life: 0 Satisfaction with present condition - satisfied or not satisfied: satisfied (except for the loose skin of the abdomen and discomfort from the persistent recurrent rash) [facility] Medical History Pseudotumor cerebri Frequent headaches History of lumbar puncture Low back pain Constipation GERD (gastroesophageal reflux disease) Insomnia Anxiety History of panic attacks PTSD (post-traumatic stress disorder) Depression Surgical History S/P laparoscopic sleeve gastrectomy Hx of colonoscopy Hx of laparoscopy H/O section Social History Are you a primary health careers instructor to a significant other at home: Yes (3 sons, mother to help post-op) Do you presently have visiting nurse or other home services: No Alcohol intake: never Patient Tobacco Use Status: Former Tobacco user Quit Date: 1996 Tobacco use type: Cigarette service: No Current occupational status: employed Physical Exam Vital Signs: Last Vital Signs Temp 97.6 F 06/14/23 08:31 Pulse 71 06/14/23 08:31 BP 124/71 06/14/23 08:31 Pulse Ox 99 06/14/23 08:31 Oxygen Delivery Method Room Air 06/14/23 08:31 BMI result Body Mass Index 27.8 Const General: cooperative and no acute distress Orientation/consciousness: patient oriented x3 Resp Effort & Inspection: normal respiratory effort Auscultation: clear to auscultation bilaterally Cardio Rate: regular rate Rhythm: regular rhythm GI Inspection: Yes normal to inspection and Yes incision (well healed) Palpation (GI): Soft to palpation and no masses Skin Other: Within the fold of the abdominal pannus there is irritation and redness as well as clear evidence of recurrent dermatitis. Pannus grade 2 with fullness to the suprapubic region as well Neuro General: patient oriented x3 Assessment & Plan Assessment & Plan (1) S/P laparoscopic sleeve gastrectomy: Code(s): Z98.84 - Bariatric surgery status Plan: Patient has done well and made excellent progress. She has maintained a stable and healthy weight over the last 6 months. She is acutely aware of her meal plan and exercise regimen. She exercises daily and makes very healthy choices if she is away from home. We will check 18 month postop labs. The issue is her excess skin, negatively impacting her life, ADLs and exercise capacity. (2) Excess skin: Code(s): L98.7 - Excessive and redundant skin and subcutaneous tissue Plan: Patient has made excellent progress from a weight loss standpoint. She has maintained a healthy stable weight over the last 6 months. She has lost over 30% of her total body weight since beginning this weight loss journey and as a result has developed excess skin of her abdomen. This has caused recurrent rashes, pain and discomfort. The rashes do improve with antifungal treatment although recur. She has had to wear additional clothing as a barrier, has had to increase her hygiene regimen to include excessive washing, drying and moisturizing of the skin. Her exercise capacity and has been limited as it causes her discomfort if she were to jog. Her ADLs are affected by means of requiring increased genital hygiene and difficulty wearing clothes due to the excess skin. She is most appropriate for a medically necessary skin removal procedure. We will submit photo and written doccumentation to her insurance company for approval for recommended panniculectomy. Orders: Orders Insulin Today E66.3 - Overweight, G93.2 - Benign intracranial hypertension, Z98.84 - Bariatric surgery status Complete Blood Count Auto Diff Today E66.3 - Overweight, G93.2 - Benign intracranial hypertension, Z98.84 - Bariatric surgery status IRON PROFILE Today E66.3 - Overweight, G93.2 - Benign intracranial hypertension, Z98.84 - Bariatric surgery status C Reactive Protein Today E66.3 - Overweight, G93.2 - Benign intracranial hypertension, Z98.84 - Bariatric surgery status TSH reflex Free T4 Today E66.3 - Overweight, G93.2 - Benign intracranial hypertension, Z98.84 - Bariatric surgery status Vitamin D 25-OH Total Today E66.3 - Overweight, G93.2 - Benign intracranial hypertension, Z98.84 - Bariatric surgery status Hemoglobin A1c Today E66.3 - Overweight, G93.2 - Benign intracranial hypertension, Z98.84 - Bariatric surgery status Lipid Panel Today E66.3 - Overweight, G93.2 - Benign intracranial hypertension, Z98.84 - Bariatric surgery status Vitamin B12 and Folate Today E66.3 - Overweight, G93.2 - Benign intracranial hypertension, Z98.84 - Bariatric surgery status Zinc Today E66.3 - Overweight, G93.2 - Benign intracranial hypertension, Z98.84 - Bariatric surgery status Vitamin B1 Today E66.3 - Overweight, G93.2 - Benign intracranial hypertension, Z98.84 - Bariatric surgery status Vitamin A Today E66.3 - Overweight, G93.2 - Benign intracranial hypertension, Z98.84 - Bariatric surgery status Ferritin Today E66.3 - Overweight, G93.2 - Benign intracranial hypertension, Z98.84 - Bariatric surgery status Basic Metabolic Panel Today E66.3 - Overweight, G93.2 - Benign intracranial hypertension, Z98.84 - Bariatric surgery status Coding Level of Care Code Est Pt Level 4 (80837) Diagnoses S/P laparoscopic sleeve gastrectomy Z98.84 Excess skin L98.7
[2023-06-14 08:31] VITALS: BP 124/71; PULSE 71; TEMP 36.4; O2SAT 99; BMI 27.8
== END 2023-06-14 09:07 | disposition home or self-care (01) ==
PROVIDERS: PCP Internal Medicine; Visit Provider Physician Assistant Surgical
DX: L98.7 Excessive and redundant skin and subcutaneous tissue (principal); Z90.3 Acquired absence of stomach [part of]; Z98.84 Bariatric surgery status
CPT/HCPCS: 99214

== ENCOUNTER 2023-06-24 08:31 | Outpatient (AMB) | payer OTHER, SELFPAY ==
--- NOTE | 2023-06-24 12:21 | A.OFFVIS_ITS ---
VS Expanded 06/24/23 14:04 Height 5 ft 3 in Weight 156 lb 12 oz BMI 27.8 Intake Visit Reasons: TV Pre Op Panniculectomy 07/09/23 Allergies vancomycin Allergy (Severe, Verified 06/24/23 12:21) Rash tetracycline Adverse Reaction (Intermediate, Verified 06/24/23 12:21) told to avoid due to intercranial hypertension Medication List - Last Reconciled 06/24/23 by Burt Forman MD [celebrate MVI PO] cephalexin 500 mg PO Q12H clotrimazole 1% (Antifungal (clotrimazole)) 1 appl topical BID docusate sodium (Colace) 100 mg PO DAILY triamcinolone acetonide 0.1% 1 appl topical BID HPI HPI TV Pre Op Panniculectomy 07/09/23: Details: Start time: 12.10pm, End time: 12.40pm ?I spent 25 minutes speaking with the patient on the phone plus an additional 5 minutes reviewing and updating records for a total of 30 minutes HPI Comments Details: Overall weight loss: 94lbs, or 39.2% TBWL Is doing 2 Celebrate 4:1 protein shakes (2 scoops in almond milk), occasionally a Zone Perfect protein bar and one meal Exercise: Gym x7/wk PFSH Medical History Pseudotumor cerebri Frequent headaches History of lumbar puncture Low back pain Constipation GERD (gastroesophageal reflux disease) Insomnia Anxiety History of panic attacks PTSD (post-traumatic stress disorder) Depression Surgical History S/P laparoscopic sleeve gastrectomy Hx of colonoscopy Hx of laparoscopy H/O section Social History Are you a primary property caretaker to a significant other at home: Yes (3 sons, mother to help post-op) Do you presently have visiting nurse or other home services: No Alcohol intake: never Patient Tobacco Use Status: Former Tobacco user Quit Date: 1996 Tobacco use type: Cigarette service: No Current occupational status: employed Telehealth Telehealth Telehealth Platform: Telephone Location of provider rendering services: practice address Location of patient: address on file Patient Identification confirmed using: Name, : Yes Telehealth method: voice only Patient verbally consented to treatment: Yes Patient verbally consented to billing insurance company: Yes Patient informed of any privacy concerns related to visit: Yes Minutes spent on Phone/Video with Pt.: 30 Assessment & Plan Assessment & Plan (1) Excess skin: Code(s): L98.7 - Excessive and redundant skin and subcutaneous tissue Category: Medical Plan: 1. Plan for panniculectomy. Risks of infection, bleeding, asymmetry, wound dehiscence and blood clots were discussed with the patient. 2. You will have a drain the abdomen that may stay a few weeks before it may be removed 3. You will need to be doing sponge baths the first 1-2 weeks. No showers. You need to have help at home to get you up and limit your activities as much as possible for at least the 4-6 weeks after surgery 4. We will arrange for a visiting nurse to come at home to help you with dressing changes and send me pictures of the procedures. We will send at your home supplies for the dressing changes. 5. Change nutritional plan to 2 Celebrate 4:1 protein shakes (2 scoops each in 8oz almond milk), one Celebrate protein bar and one meal. This will improve weight loss and healing after surgery. 6. Continue all vitamins 7. Do blood work not fasting any day between Saturday07/01/23 and Saturday07/05/23 and picker operator the antibiotic prescription from your pharmacy 8. Risks and complications were discussed the possibility of bleeding that may require transfusion, loss of the umbilicus, wound dehiscence or infection, dog ears , flap asymmetry. We also discussed the importance of strict avoidance of weight lifting. 9. Avoid aspirin, motrin, ibuprofen, Aleve, Advil, Naproxyn. Only Tylenol is OK Orders: Orders Prothrombin Time INR Today K91.2 - Postsurgical malabsorption, not elsewhere classified, Z90.3 - Acquired absence of stomach [part of] Type and Screen Today K91.2 - Postsurgical malabsorption, not elsewhere classified, Z90.3 - Acquired absence of stomach [part of] Partial Thromboplastin Time Today K91.2 - Postsurgical malabsorption, not elsewhere classified, Z90.3 - Acquired absence of stomach [part of] Medications: New cephalexin 500 mg PO Q12H 60 caps 2RF M79.3 - Panniculitis, unspecified docusate sodium (Colace) 100 mg PO DAILY 90 caps 0RF K59.00 - Constipation, unspecified
[2023-06-24 14:04] VITALS: BMI 27.8
== END 2023-06-24 14:09 | disposition home or self-care (01) ==
LOC: HO.HBS 08:31
PROVIDERS: PCP Internal Medicine; Visit Provider Surgery
DX: L98.7 Excessive and redundant skin and subcutaneous tissue (principal)
CPT/HCPCS: 99214

== ENCOUNTER → 2023-06-24 08:31 | Outpatient (BNVA) | payer OTHER, SELFPAY | PROVIDERS: PCP Internal Medicine; Visit Provider Surgery ==

== ENCOUNTER → 2023-07-01 15:02 | Outpatient (BNVA) | payer OTHER, SELFPAY | PROVIDERS: PCP Internal Medicine; Visit Provider Surgery ==

== ENCOUNTER 2023-07-09 08:22 | Day surgery (SDC) | payer OTHER, SELFPAY ==
[2023-07-01 18:27] LABS: Prothrombin Time 11.7 SEC (11.1-13.3)
[2023-07-01 18:30] LABS: Partial Thromboplastin Time 29.9 SEC (26.0-36.8)
[2023-07-05 10:40] VITALS: BMI 27.6
--- NOTE | 2023-07-05 14:04 | P.CONAN_ITS ---
Documented by User: Leni Rashid NP 07/05/23 14:05 HPI - Anesthesia Eval Consult details Narrative: 48yo F for Panniculectomy s/p gastric sleeve 2021 [facility] Active Problems Active Problems: All Active Problems Postgastrectomy malabsorption (Acute) Excess skin (Acute) Overweight with body mass index (BMI) 25.0-29.9 (Acute) Generalized anxiety disorder (Acute) ANALI (obstructive sleep apnea) (Acute) Intracranial hypertension (Acute) Obesity (BMI 30-39.9) (Acute) S/P laparoscopic sleeve gastrectomy (Acute) Past Medical History Medical History (Updated 07/05/23 @ 10:38 by Angela Farmer RN) Sleep apnea Pseudotumor cerebri Frequent headaches History of lumbar puncture Low back pain Constipation GERD (gastroesophageal reflux disease) Insomnia Anxiety History of panic attacks PTSD (post-traumatic stress disorder) Depression Family History Family history of problems with anesthesia: No Surgical History Surgical History (Updated 07/04/23 @ 08:46 by Angela Farmer RN) S/P laparoscopic sleeve gastrectomy Hx of colonoscopy Hx of laparoscopy H/O section History of Problems with Anesthesia: No Social History Social History Household Members Other:: minor children (3) Are you a primary health care / medical job titles to a significant other at home: Yes Do you presently have visiting nurse or other home services: No Alcohol intake: never Patient Tobacco Use Status: Former Tobacco user Quit Date: 1996 Tobacco use type: Cigarette Use of substances other than those prescribed or required for medical reasons: No Have you been hit, kicked, punched, or otherwise hurt by someone within the past year? If so, by whom?: No Are you DNR?: No Advance Directives Information Provided: Yes (as above noted) Advance Directives on File: No Recently lost weight without trying: No Eating poorly because of decreased appetite: No Nutrition Risks: No Nutritional Risk Patient : No FDLMP: N/A-has IUD : No Poor oral hygiene: No service: No Current occupational status: employed Meds Allergies Allergy/AdvReac Type Severity Reaction Status Date / Time vancomycin Allergy Severe Rash Verified 06/24/23 12:21 tetracycline AdvReac Intermediate told to Verified 06/24/23 12:21 avoid due to intercranial hypertension Home Medications ?Medication ?Instructions ?Recorded ?Confirmed ?Last Taken ?Type celebrate MVI 1 tab PO DAILY 06/11/22 07/09/23 07/08/23 History calcium carbonate 600 mg-vitamin 1 tab PO DAILY 07/05/23 07/05/23 07/08/23 History D3 5 mcg (200 unit) tablet Exam Height,Weight and Vital Signs: Height 5 ft 3 in Weight 70.76 kg Pertinent Lab Results Pertinent Lab Results: Laboratory Tests 07/01/23 07/01/23 15:52 16:01 PT 11.7 INR 1.0 APTT 29.9 Blood Type O Positive Antibody Screen NEGATIVE Laboratory Tests 06/14/23 09:30 WBC 6.5 Hgb 12.8 Hct 38.6 Plt Count 264 Sodium 140 Potassium 4.4 Chloride 107 Carbon Dioxide 27 BUN 25 H Creatinine 0.68 Narrative Narrative: EKG 06/2023 Vent. Rate : 058 BPM Atrial Rate : 058 BPM P-R Int : 168 ms QRS Dur : 080 ms QT Int : 400 ms P-R-T Axes : 026 005 025 degrees QTc Int : 392 ms Sinus bradycardia with sinus arrhythmia Otherwise normal ECG No previous ECGs available Assessment and Plan Assessment Anesthesia Assessment: Chart Reviewed Final Anesthetic Review Family History of Problems with Anesthesia: No History of Problems with Anesthesia: No Documented by User: Linda Pacheco MD 07/09/23 15:28 [facility] Active Problems Active Problems: All Active Problems Postgastrectomy malabsorption (Acute) Excess skin (Acute) Overweight with body mass index (BMI) 25.0-29.9 (Acute) Generalized anxiety disorder (Acute) ANALI (obstructive sleep apnea) (Acute)- not using CPAP Intracranial hypertension (Acute) Obesity (BMI 30-39.9) (Acute) S/P laparoscopic sleeve gastrectomy (Acute) Marijuana edibles Past Medical History Medical History (Updated 07/05/23 @ 10:38 by Angela Farmer RN) Sleep apnea Pseudotumor cerebri Frequent headaches History of lumbar puncture Low back pain Constipation GERD (gastroesophageal reflux disease) Insomnia Anxiety History of panic attacks PTSD (post-traumatic stress disorder) Depression Family History Family history of problems with anesthesia: No Surgical History Surgical History (Updated 07/04/23 @ 08:46 by Angela Farmer RN) S/P laparoscopic sleeve gastrectomy Hx of colonoscopy Hx of laparoscopy H/O section History of Problems with Anesthesia: No Social History Social History Household Members Other:: minor children (3) Are you a primary health care / medical job titles to a significant other at home: Yes Do you presently have visiting nurse or other home services: No Alcohol intake: never Patient Tobacco Use Status: Former Tobacco user Quit Date: 1996 Tobacco use type: Cigarette Use of substances other than those prescribed or required for medical reasons: No Have you been hit, kicked, punched, or otherwise hurt by someone within the past year? If so, by whom?: No Are you DNR?: No Advance Directives Information Provided: Yes (as above noted) Advance Directives on File: No Recently lost weight without trying: No Eating poorly because of decreased appetite: No Nutrition Risks: No Nutritional Risk Patient : No FDLMP: N/A-has IUD : No Poor oral hygiene: No service: No Current occupational status: employed Meds Allergies Allergy/AdvReac Type Severity Reaction Status Date / Time vancomycin Allergy Severe Rash Verified 06/24/23 12:21 tetracycline AdvReac Intermediate told to Verified 06/24/23 12:21 avoid due to intercranial hypertension Home Medications ?Medication ?Instructions ?Recorded ?Confirmed ?Last Taken ?Type celebrate MVI 1 tab PO DAILY 06/11/22 07/09/23 07/08/23 History calcium carbonate 600 mg-vitamin 1 tab PO DAILY 07/05/23 07/05/23 07/08/23 History D3 5 mcg (200 unit) tablet Exam Height,Weight and Vital Signs: Height 5 ft 3 in Weight 70.76 kg Vital Signs Temp Pulse Resp BP Pulse Ox O2 Del Method 07/09/23 09:32 98.4 F 48 L 16 113/60 100 Room Air Pertinent Lab Results Pertinent Lab Results: Laboratory Tests 07/01/23 07/01/23 15:52 16:01 PT 11.7 INR 1.0 APTT 29.9 Blood Type O Positive Antibody Screen NEGATIVE Laboratory Tests 06/14/23 09:30 WBC 6.5 Hgb 12.8 Hct 38.6 Plt Count 264 Sodium 140 Potassium 4.4 Chloride 107 Carbon Dioxide 27 BUN 25 H Creatinine 0.68 Lab Results 07/01/23 07/01/23 07/09/23 Range/Units 15:52 16:01 09:14 PT 11.7 (11.1-13.3) SEC INR 1.0 (0.9-1.1) APTT 29.9 (26.0-36.8) SEC Urine Test NEGATIVE (NEGATIVE) Blood Type O Positive Antibody Screen NEGATIVE Airway Mallampati Class: III (Narrow high arched palate) TM Dist: >3cm Neck ROM: Full Loose/Missing/Broken Teeth: No Heart: RRR Lungs: CTAB Assessment and Plan Assessment Anesthesia Assessment: Anesthesia Plan Discussed and Chart Reviewed Final Anesthetic Review Family History of Problems with Anesthesia: No History of Problems with Anesthesia: No NPO: Yes ASA Class: III Final Preanesthetic Review: No Changes in Pt Med Stat, Meds/Allgs Chart Reviewed, Consent Obtained/Reviewed and Anes Risks/Benef Reviewed Patient Risk: Intermediate Procedure Risk: Intermediate Assessment/Block/Sedation in SS: Assess/Block/Sedation-SS Anesthetic Plan Anesthetic Plan: GA Disposition: Standard PACU
[2023-07-09] VITALS (10 sets, daily range): BP systolic 113–132; BP diastolic 60–83; PULSE 48–93; RESP 16–18; TEMP 36.9–37.4; O2SAT 94–100
[2023-07-09 09:39] LABS: UPreg QC Valid YES; Urine Pregnancy NEGATIVE (NEGATIVE)
[2023-07-09] MEDS: Lactated Ringers 1,000 ML 100 ML IVCONT (09:49)
--- NOTE | 2023-07-09 11:16 | PM.OP ---
Brief Operative Note Date of Service: 07/09/23 Pre-op diagnosis: Excess skin Post-op diagnosis: same Procedure: PROCEDURE: Panniculectomy with umbilical transposition and bilateral subcutaneous fat flaps INDICATION: This a 48 year old female who underwent laparoscopic sleeve gastrectomy on 12/13/2021. She had an excellent result achieving a BMI of 27.8 kg/m2 with a total weight loss of 94lbs, or 39.2% of her TBWL. As a result, she has developed panniculitis which has not resolved despite continuous use of clotrimazole ointment as well as skin irritation. On exam she has extreme skin laxity due to massive weight loss, with the abdominal pannus completely hanging 4cm below the pubis. Panniculectomy was recommended. We discussed the two options for the panniculectomy of using a combined vertical and horizontal incisions or just a horizontal (bikini) incision. It was my recommendation to do only horizontal incision based on her body habitus and skin laxity. The patient agreed with this. Risks and complications were discussed with the patient including bleeding, infection, umbilical loss, flap necrosis, asymmetry, dehiscence, seroma, VTE. The patient understood the risks and was in agreement to proceed with surgery. PROCEDURE: The incisions were appropriately marked at the preop area with the patient standing and laying down. After induction of general anesthesia a Ayala catheter and pneumatic compression devices were placed. The patient was prepped and draped in the usual sterile manner and the incisions were marked again and confirmed. The skin was infiltrated with lidocaine and epinephrine. The #10 blade scalpel was used for the large incisions and the #15 blade scalpel for the umbilicus. Cautery was used to divide the subcutaneous tissues until the fascia was identified. Then I used the cautery to separate the pannus from the fascia. The inferior incision was made initially and I mobilized the flap for a several centimeters cephalad to the umbilicus. The umbilicus was incised circumferentially and detached from the surrounding tissues all the way to the fascia while its stalk was preserved. With the patient in reflex position I confirmed that the skin flaps were appropriate and would allow for the tissues to come together with reasonable tension. At that point a horizontal incision was made 4 cm above the umbilicus. #10 blade was used for the skin, cautery for the dermis and for the remaining tissues. A subcutaneous fat flap was raised from the upper skin flap in order to fill the space under the skin and support the closure of the two flaps. In addition the inferior flap was mobilized caudally for a few centimeters to create a space for the subcutaneous fat flap as well as relieve tension from the closure. A circumferential incision was made at the area where the umbilicus would be re-implanted. The umbilicus was appropriately oriented and was delivered through the defect and was secured in place with a Kathy. No bleeding was noted anywhere. One COLUMBA drain was placed from the left corner of the horizontal incision across the wound and was secured in place with a silk suture. A total of 7ml of Zynrelef was applied on top of the fascia and under the subcutaneous fat flaps. The subcutaneous fat flap was secured under the inferior flap with several interrupted 3.0 Monocryl sutures. The two flaps were brought together and were attached at the midline of the horizontal incision with a #3.0 Monocryl suture. At that point the umbilicus was properly oriented and was re-approximated to the skin with 8 interrupted 3.0 Monocryl sutures. In a similar fashion the skin flaps were re-approximated with multiple 3.0 Monocryl sutures. The skin was closed in all incisions and umbilicus with 4.0 Monocryl sutures. Steri-strips, xeroform gauzes and gauzes were used to cover the incisions. An abdominal binder was also placed. The was awaken and was transferred to the recover room in a stable condition. I was present and performed the entire procedure. Rene was the educational program assistant. Valerio Forman MD, PhD, FACS Surgeon: Burt Forman MD Surgeon: Burt Forman MD Anesthesia: GETA, local and other (7ml Zynrelef) Was an Charge Account Authorizer used for this Procedure?: No Charge Account Authorizer: Moshe Rene Estimated blood loss (mL): 10 IV fluids (mL): 2,000 Urine output (mL): 250 Pathology: other (Abdominal pannus) Condition: stable Disposition: PACU
--- NOTE | 2023-07-09 12:22 | MHC.SHP ---
Pre-Procedural Eval Section A - 24 Hr Update-Section A only Date of Service: 07/09/23 The patient is an INPATIENT: No The patient has been examined within 24 hours of the surgical procedure. The History & Physical has been completed within 30 days and I have reviewed it.: Yes Section B - Complete if H&P > 30 days Chief Complaint: Excessive and redundant skin and subcutaneous tiss Relevant Family History (Specify if Yes): No Relevant Social History: None Present Medications: None Medical History: No relevant PMH History of Previous Operations: Relevant previous surgery/procedure and date(s) (laparoscopic sleeve gastrectomy) Allergies: Allergies Allergy/AdvReac Type Severity Reaction Status Date / Time vancomycin Allergy Severe Rash Verified 06/24/23 12:21 tetracycline AdvReac Intermediate told to Verified 06/24/23 12:21 avoid due to intercranial hypertension Review of Systems Sugical H&P ROS: Negative: Constitution, Cardiovascular, Respiratory, Neurological, Psychiatric, Hem-Onc, Allergic/Immunologic, Gastrointestinal, Genitourinary, Musculoskeletal, Integumentary, Endocrine and Eyes/Ears/Nose/Throat Exam Surgical H&P Exam: Normal: HEENT, Normal: Heart, Normal: Lungs, Normal: Extremities, Normal: Abdomen, Normal: Skin and Normal: Neurological Plan Diagnosis/Plan: Unchanged I have reviewed the history and physical and performed a pertinent physical examination on my patient. No changes have occurred unless specified. Time Spent With Patient Time: Total time managing care of this patient today ____ minutes.
== END 2023-07-09 18:35 | disposition home or self-care (01) ==
PROVIDERS: Nurse Practitioner; PCP Internal Medicine; Visit Provider Surgery
PROC: 0JB80ZZ Excision of Abdomen Subcutaneous Tissue and Fascia, Open Approach (ICD-10-PCS; CPT 15830; principal; 2023-07-09 12:00)
DX: L98.7 Excessive and redundant skin and subcutaneous tissue (principal); K91.2 Postsurgical malabsorption, not elsewhere classified; M79.3 Panniculitis, unspecified; Z90.3 Acquired absence of stomach [part of]; K21.9 Gastro-esophageal reflux disease without esophagitis; K59.00 Constipation, unspecified; G93.2 Benign intracranial hypertension; R51.9 Headache, unspecified; G47.33 Obstructive sleep apnea (adult) (pediatric); F32.A Depression, unspecified; F43.10 Post-traumatic stress disorder, unspecified; Z79.899 Other long term (current) drug therapy; Z88.1 Allergy status to other antibiotic agents; Z98.890 Other specified postprocedural states; Z87.891 Personal history of nicotine dependence
CPT/HCPCS: 15830; 15847; 36415; 81025; 85610; 85730; 86850; 86900; 86901; 88304; C9088; J0131; J0690; J1170; J2250; J2371; J2704; J3010; J3370

== ENCOUNTER → 2023-07-09 08:22 | Outpatient (BNV) | payer OTHER, SELFPAY | PROVIDERS: PCP Internal Medicine; Visit Provider Surgery | DX: M79.3 Panniculitis, unspecified (principal); L98.7 Excessive and redundant skin and subcutaneous tissue | CPT/HCPCS: 15830 ==

== ENCOUNTER 2023-07-16 12:51 | Outpatient (AMB) | payer OTHER, SELFPAY ==
--- NOTE | 2023-07-16 12:57 | MHC.OFFVISWM ---
VS Expanded 07/16/23 13:13 BP 101/62 Blood Pressure Location Rt brachial Blood Pressure Position Sitting Pulse 86 Pulse Source Pulse Oximeter Temp 97.0 F Temperature Source Temporal Artery Scan Pulse Oximetry 97 Oxygen Delivery Method Room Air Intake Visit Reasons: (OV) s/p Panniculectomy 07/09/23 Allergies vancomycin Allergy (Severe, Verified 07/16/23 13:40) Rash tetracycline Adverse Reaction (Intermediate, Verified 07/16/23 13:40) told to avoid due to intercranial hypertension HPI Comments Details: Patient is a pleasant 48-year-old female who returns to the office today in follow-up. She is status post panniculectomy performed on 07/09/2023. She states that over the weekend, on Saturday evening, after going to the bathroom, she got up and felt lightheaded. She did have a syncopal episode that was witnessed. She did not sustain any injury, she did not hit her head. She did not report this to myself or Dr. Forman. She states that she has been following the meal plan as directed by Dr. Forman as well as approximately 70 oz of fluid per day. Since then sit incident happened on Saturday, she has had some salad and some chicken breast. She has not had any further lightheaded episodes. She denies any pain at today's visit. She continues her antibiotics. [facility] Medical History (Updated 07/05/23 @ 10:38 by Angela Farmer RN) Sleep apnea Pseudotumor cerebri Frequent headaches History of lumbar puncture Low back pain Constipation GERD (gastroesophageal reflux disease) Insomnia Anxiety History of panic attacks PTSD (post-traumatic stress disorder) Depression Surgical History (Updated 07/16/23 @ 13:38 by TIBURCIO Mendiola) S/P laparoscopic sleeve gastrectomy Hx of colonoscopy Hx of laparoscopy H/O section Social History Household Members Other:: minor children (3) Are you a primary ocular care aide to a significant other at home: Yes Do you presently have visiting nurse or other home services: No Alcohol intake: never Patient Tobacco Use Status: Former Tobacco user Quit Date: 1996 Tobacco use type: Cigarette service: No Current occupational status: employed Physical Exam Vital Signs: Last Vital Signs Temp 97.0 F 07/16/23 13:13 Pulse 86 07/16/23 13:13 BP 101/62 07/16/23 13:13 Pulse Ox 97 07/16/23 13:13 Oxygen Delivery Method Room Air 07/16/23 13:13 Skin Other: Transverse incision and umbilical incision all healing nicely. No evidence of dehiscence or infection. Assessment & Plan Assessment & Plan (1) S/P panniculectomy: Code(s): Z98.890 - Other specified postprocedural states Category: Surgical Plan: Incision healing very nicely. She was encouraged to communicate with Dr. Forman what had happened and her increase in p.o. intake. She will continue with daily dressings, monitoring drain output, antibiotics, meal plan. She will return to the office in 1 week. Regarding her syncopal episode, it sounds as though it was a vasovagal event without any further symptoms or recurrence.
[2023-07-16 13:13] VITALS: BP 101/62; PULSE 86; TEMP 36.1; O2SAT 97
== END 2023-07-16 13:39 | disposition home or self-care (01) ==
PROVIDERS: PCP Internal Medicine; Visit Provider Physician Assistant Surgical
DX: Z98.890 Other specified postprocedural states (principal)
CPT/HCPCS: 99024

== ENCOUNTER → 2023-07-16 12:51 | Outpatient (BNVA) | payer OTHER, SELFPAY | PROVIDERS: PCP Internal Medicine; Visit Provider Physician Assistant Surgical ==

== ENCOUNTER 2023-07-22 08:31 | Outpatient (AMB) | payer OTHER, SELFPAY ==
--- NOTE | 2023-07-22 08:33 | A.OFFVIS_ITS ---
VS Expanded 07/22/23 09:06 BP 116/78 Blood Pressure Location Rt brachial Blood Pressure Position Sitting Pulse 61 Pulse Source Pulse Oximeter Temp 98.1 F Temperature Source Temporal Artery Scan Pulse Oximetry 100 Oxygen Delivery Method Room Air Intake Visit Reasons: (OV) s/p Panniculectomy 07/09/23 Allergies vancomycin Allergy (Severe, Verified 07/22/23 09:10) Rash tetracycline Adverse Reaction (Intermediate, Verified 07/22/23 09:10) told to avoid due to intercranial hypertension HPI Comments Details: Patient is a pleasant 48-year-old female who returns to the office today in follow-up. She is status post panniculectomy on 07/09/2023. Over the weekend she developed rash to the tape and Steri-Strips in a contact dermatitis distribution. She additionally had sensitivity to the abdominal binder and bought a new Velcro binder. This morning, she states that she did require Benadryl x1 last night although the rash is improving with no further application of tape or Steri-Strips. She additionally reports a 3 day history of constipation and suprapubic bloat and swelling. No complaints of pain, nausea, vomiting. [facility] Medical History (Updated 07/22/23 @ 09:15 by TIBURCIO Mendiola) Sleep apnea Pseudotumor cerebri Frequent headaches History of lumbar puncture Low back pain Constipation GERD (gastroesophageal reflux disease) Insomnia Anxiety History of panic attacks PTSD (post-traumatic stress disorder) Depression Surgical History S/P laparoscopic sleeve gastrectomy Hx of colonoscopy Hx of laparoscopy H/O section Social History Household Members Other:: minor children (3) Are you a primary child care counselor to a significant other at home: Yes Do you presently have visiting nurse or other home services: No Alcohol intake: never Patient Tobacco Use Status: Former Tobacco user Quit Date: 1996 Tobacco use type: Cigarette service: No Current occupational status: employed Physical Exam Vital Signs: Last Vital Signs Temp 98.1 F 07/22/23 09:06 Pulse 61 07/22/23 09:06 BP 116/78 07/22/23 09:06 Pulse Ox 100 07/22/23 09:06 Oxygen Delivery Method Room Air 07/22/23 09:06 Skin Other: Erythema noted to the area where the tape was on the upper abdomen as well as erythema to the superior aspect of the incision where the Steri-Strips were. Mild swelling in the suprapubic area. The incision itself is clean, dry, intact without evidence of infection or dehiscence. Umbilicus is viable. Assessment & Plan Assessment & Plan (1) S/P panniculectomy: Code(s): Z98.890 - Other specified postprocedural states Category: Surgical Plan: Continue antibiotics and meal plan. Incision looks great. We will avoid any further tape or Steri-Strips. Application of ABDs and her abdominal binder. Nursing is no longer necessary we will discontinue. Return to the office in 1 week. Calling with any questions or concerns. (2) Constipation: Code(s): K59.00 - Constipation, unspecified Category: Medical Plan: Add Dulcolax suppository x1, senna 2 tabs at HS, she may discontinue Colace, continue milk of magnesia and fiber tablets. Medications: New bisacodyl (Dulcolax (bisacodyl)) 10 mg KS DAILY PRN 12 ea 0RF constipation sennosides (senna) 17.2 mg (2 x 8.6 mg) PO BEDTIME PRN 60 tabs 0RF constipation
[2023-07-22 09:06] VITALS: BP 116/78; PULSE 61; TEMP 36.7; O2SAT 100
== END 2023-07-22 09:16 | disposition home or self-care (01) ==
PROVIDERS: PCP Internal Medicine; Visit Provider Physician Assistant Surgical
DX: Z98.890 Other specified postprocedural states (principal); K59.00 Constipation, unspecified
CPT/HCPCS: 99024

== ENCOUNTER → 2023-07-22 08:31 | Outpatient (BNVA) | payer OTHER, SELFPAY | PROVIDERS: PCP Internal Medicine; Visit Provider Physician Assistant Surgical ==

== ENCOUNTER 2023-07-31 15:19 | Outpatient (AMB) | payer OTHER, SELFPAY ==
[2023-07-31 15:31] VITALS: BP 118/58; PULSE 65; TEMP 36; O2SAT 99
--- NOTE | 2023-07-31 15:31 | A.OFFVIS_ITS ---
VS Expanded 07/31/23 15:31 BP 118/58 L Blood Pressure Location Rt brachial Blood Pressure Position Sitting Pulse 65 Pulse Source Pulse Oximeter Temp 96.8 F Temperature Source Temporal Artery Scan Pulse Oximetry 99 Oxygen Delivery Method Room Air Intake Visit Reasons: (OV) s/p Panniculectomy 07/09/23 Allergies vancomycin Allergy (Severe, Verified 07/31/23 15:33) Rash tetracycline Adverse Reaction (Intermediate, Verified 07/31/23 15:33) told to avoid due to intercranial hypertension HPI Comments Details: Patient is a pleasant 48-year-old female who returns to the office today in follow-up. She is status post panniculectomy on 07/09/2023. She reports overall doing fairly well. She did note some fullness in the suprapubic region. She has no longer using adhesive tape and the previously noted reaction is improving. She has had a proximally 15-20 mL of serous fluid from the collection bulb. Continues antibiotics and meal plan. [facility] Medical History (Updated 07/22/23 @ 09:15 by TIBURCIO Mendiola) Sleep apnea Pseudotumor cerebri Frequent headaches History of lumbar puncture Low back pain Constipation GERD (gastroesophageal reflux disease) Insomnia Anxiety History of panic attacks PTSD (post-traumatic stress disorder) Depression Surgical History S/P laparoscopic sleeve gastrectomy Hx of colonoscopy Hx of laparoscopy H/O section Social History Household Members Other:: minor children (3) Are you a primary rehab care assistant to a significant other at home: Yes Do you presently have visiting nurse or other home services: No Alcohol intake: never Patient Tobacco Use Status: Former Tobacco user Quit Date: 1996 Tobacco use type: Cigarette service: No Current occupational status: employed Physical Exam Vital Signs: Last Vital Signs Temp 96.8 F 07/31/23 15:31 Pulse 65 07/31/23 15:31 BP 118/58 L 07/31/23 15:31 Pulse Ox 99 07/31/23 15:31 Oxygen Delivery Method Room Air 07/31/23 15:31 Skin Other: Incisions healing nicely. One previously noted blister with a pin-hole area of serous drainage. No evidence of infection. Assessment & Plan Assessment & Plan (1) S/P panniculectomy: Code(s): Z98.890 - Other specified postprocedural states Category: Surgical Plan: Continue to monitor drain output. Continue antibiotics and meal plan. Drain out next week likely.
== END 2023-07-31 16:02 | disposition home or self-care (01) ==
PROVIDERS: PCP Internal Medicine; Visit Provider Physician Assistant Surgical
DX: Z98.890 Other specified postprocedural states (principal)
CPT/HCPCS: 99024

== ENCOUNTER → 2023-07-31 15:19 | Outpatient (BNVA) | payer OTHER, SELFPAY | PROVIDERS: PCP Internal Medicine; Visit Provider Physician Assistant Surgical ==

== ENCOUNTER 2023-08-07 08:04 | Outpatient (AMB) | payer OTHER, SELFPAY ==
--- NOTE | 2023-08-07 08:29 | MHC.OFFVISWM ---
VS Expanded 08/07/23 08:30 BP 106/75 Blood Pressure Location Rt brachial Blood Pressure Position Sitting Pulse 63 Pulse Source Pulse Oximeter Temp 97.0 F Temperature Source Temporal Artery Scan Pulse Oximetry 99 Oxygen Delivery Method Room Air Intake Visit Reasons: (OV) s/p Panniculectomy 07/09/23 Allergies vancomycin Allergy (Severe, Verified 08/07/23 08:31) Rash tetracycline Adverse Reaction (Intermediate, Verified 08/07/23 08:31) told to avoid due to intercranial hypertension HPI Comments Details: Pleasant 48-year-old female who returns to the office today in follow-up. She is status post panniculectomy on 07/09/2023. She reports approximately 10-15 mL of serous fluid from the collection bulb daily. She continues antibiotics. [facility] Medical History (Updated 07/22/23 @ 09:15 by TIBURCIO Mendiola) Sleep apnea Pseudotumor cerebri Frequent headaches History of lumbar puncture Low back pain Constipation GERD (gastroesophageal reflux disease) Insomnia Anxiety History of panic attacks PTSD (post-traumatic stress disorder) Depression Surgical History S/P laparoscopic sleeve gastrectomy Hx of colonoscopy Hx of laparoscopy H/O section Social History Household Members Other:: minor children (3) Are you a primary physician primary care sports medicine to a significant other at home: Yes Do you presently have visiting nurse or other home services: No Alcohol intake: never Patient Tobacco Use Status: Former Tobacco user Tobacco use type: Cigarette service: No Current occupational status: employed Physical Exam Vital Signs: Last Vital Signs Temp 97.0 F 08/07/23 08:30 Pulse 63 08/07/23 08:30 BP 106/75 08/07/23 08:30 Pulse Ox 99 08/07/23 08:30 Oxygen Delivery Method Room Air 08/07/23 08:30 Skin Other: All incisions are clean, dry, intact. Healing nicely. No evidence of dehiscence or infection. Assessment & Plan Assessment & Plan (1) S/P panniculectomy: Code(s): Z98.890 - Other specified postprocedural states Category: Surgical Plan: Drain removed without incident. She may shower on Saturday. No submersion into a body of water for a week. Continue antibiotics for 2 weeks. Continue compression. Continue meal plan.
[2023-08-07 08:30] VITALS: BP 106/75; PULSE 63; TEMP 36.1; O2SAT 99
== END 2023-08-07 08:39 | disposition home or self-care (01) ==
PROVIDERS: PCP Internal Medicine; Visit Provider Physician Assistant Surgical
DX: Z98.890 Other specified postprocedural states (principal)
CPT/HCPCS: 99024

== ENCOUNTER → 2023-08-07 08:04 | Outpatient (BNVA) | payer OTHER, SELFPAY | PROVIDERS: PCP Internal Medicine; Visit Provider Physician Assistant Surgical ==

== ENCOUNTER 2023-08-19 11:40 | Outpatient (AMB) | payer OTHER, SELFPAY ==
[2023-08-19 12:08] VITALS: BP 115/77; PULSE 60; TEMP 36.4; O2SAT 99
--- NOTE | 2023-08-19 12:08 | A.OFFVIS_ITS ---
VS Expanded 08/19/23 12:08 BP 115/77 Blood Pressure Location Rt brachial Blood Pressure Position Sitting Pulse 60 Pulse Source Pulse Oximeter Temp 97.5 F Temperature Source Temporal Artery Scan Pulse Oximetry 99 Oxygen Delivery Method Room Air Intake Visit Reasons: (OV) s/p Panniculectomy 07/09/23 Allergies vancomycin Allergy (Severe, Verified 08/07/23 08:31) Rash tetracycline Adverse Reaction (Intermediate, Verified 08/07/23 08:31) told to avoid due to intercranial hypertension HPI Comments Details: Patient is a pleasant 48-year-old female who returns to the office today in follow-up. She is status post panniculectomy on 07/09/2023. She reports that over the weekend she felt a tender lump at the insertion site of the drain. She remove the bandage and her abdominal binder and this resolved over the next 24 hours. No further tenderness or fluctuance or issue. She continues meal plan as directed by Dr. Forman. She offers no complaints at today's visit. [facility] Medical History (Updated 07/22/23 @ 09:15 by TIBURCIO Mendiola) Sleep apnea Pseudotumor cerebri Frequent headaches History of lumbar puncture Low back pain Constipation GERD (gastroesophageal reflux disease) Insomnia Anxiety History of panic attacks PTSD (post-traumatic stress disorder) Depression Surgical History S/P laparoscopic sleeve gastrectomy Hx of colonoscopy Hx of laparoscopy H/O section Social History Household Members Other:: minor children (3) Are you a primary health care administrator to a significant other at home: Yes Do you presently have visiting nurse or other home services: No Alcohol intake: never Patient Tobacco Use Status: Former Tobacco user Tobacco use type: Cigarette service: No Current occupational status: employed Physical Exam Vital Signs: Last Vital Signs Temp 97.5 F 08/19/23 12:08 Pulse 60 08/19/23 12:08 BP 115/77 08/19/23 12:08 Pulse Ox 99 08/19/23 12:08 Oxygen Delivery Method Room Air 08/19/23 12:08 Skin Other: Transverse incision is clean, dry, intact. No evidence of erythema or fluctuance at the drain insertion site. Umbilicus is viable and healing nicely. Assessment & Plan Assessment & Plan (1) S/P panniculectomy: Code(s): Z98.890 - Other specified postprocedural states Category: Surgical Plan: No heavy lifting. May resume treadmill next week. Continue meal plan as directed by Dr. Forman. Continue abdominal binder. Return to the office in follow-up as scheduled. Text with any questions or concerns.
== END 2023-08-19 12:24 | disposition home or self-care (01) ==
PROVIDERS: PCP Internal Medicine; Visit Provider Physician Assistant Surgical
DX: Z98.890 Other specified postprocedural states (principal)
CPT/HCPCS: 99024

== ENCOUNTER → 2023-08-19 11:40 | Outpatient (BNVA) | payer OTHER, SELFPAY | PROVIDERS: PCP Internal Medicine; Visit Provider Physician Assistant Surgical ==

== ENCOUNTER 2023-10-04 08:39 | Outpatient (REF) | payer BC, SELFPAY ==
[2023-10-04 11:01] LABS: TSH reflex Free T4 0.67 uIU/mL (0.32-4.0)
== END 2023-10-04 08:40 | disposition home or self-care (01) ==
LOC: HO.LAB 08:39
PROVIDERS: PCP Internal Medicine; Visit Provider Physician Assistant Surgical
DX: E66.3 Overweight (principal); G93.2 Benign intracranial hypertension; Z98.890 Other specified postprocedural states; F41.9 Anxiety disorder, unspecified; Z98.84 Bariatric surgery status
CPT/HCPCS: 36415; 84443

== ENCOUNTER 2023-10-04 08:39 | Outpatient (AMB) | payer BC, SELFPAY ==
--- NOTE | 2023-10-04 08:40 | MHC.OFFVISWM ---
VS Expanded 10/04/23 08:46 BP 108/53 L Blood Pressure Location Rt brachial Blood Pressure Position Sitting Pulse 81 Pulse Source Pulse Oximeter Temp 97.1 F Temperature Source Tympanic Pulse Oximetry 100 Oxygen Delivery Method Room Air Height 5 ft 6 in Weight 161 lb 12.8 oz BMI 26.1 Body Fat % 33.4 Body Fat Mass 54.0 Fat Free Mass 107.6 Visceral Fat Rating 7.0 Body Water % 47.3 Body Water Mass 76.6 Muscle Mass/Score 102.0 Basal Metabolic Rate/Score 1,459 Intake Visit Reasons: ov PO SWL 12/13/21 Allergies vancomycin Allergy (Severe, Verified 10/04/23 08:53) Rash tetracycline Adverse Reaction (Intermediate, Verified 10/04/23 08:53) told to avoid due to intercranial hypertension HPI Comments Details: 48-year-old female returns to the office today in follow-up. She is status post panniculectomy on 07/09/2023. Overall she is doing very well and has no significant complaints. She does feel as though she has gained some weight in her breasts for unknown reasons. She states that she saw her pathology collector and was felt to be not related to menopause. She states that she has been following her meal plan as directed although have been having some deli meats during her meal. She has also been having approximately 120-150 mL of water per day. She otherwise feels very well. [facility] Medical History (Updated 10/04/23 @ 09:00 by TIBURCIO Mendiola) Sleep apnea Pseudotumor cerebri Frequent headaches History of lumbar puncture Low back pain Constipation GERD (gastroesophageal reflux disease) Insomnia Anxiety History of panic attacks PTSD (post-traumatic stress disorder) Depression Surgical History S/P laparoscopic sleeve gastrectomy Hx of colonoscopy Hx of laparoscopy H/O section Social History Household Members Other:: minor children (3) Are you a primary clinical care manager to a significant other at home: Yes Do you presently have visiting nurse or other home services: No Alcohol intake: never Patient Tobacco Use Status: Former Tobacco user Tobacco use type: Cigarette service: No Current occupational status: employed Physical Exam Vital Signs: Last Vital Signs Temp 97.1 F 10/04/23 08:46 Pulse 81 10/04/23 08:46 BP 108/53 L 10/04/23 08:46 Pulse Ox 100 10/04/23 08:46 Oxygen Delivery Method Room Air 10/04/23 08:46 BMI result Body Mass Index 26.1 Skin Other: Well healed transverse abdominal incision and umbilicus Assessment & Plan Assessment & Plan (1) S/P panniculectomy: Code(s): Z98.890 - Other specified postprocedural states Category: Surgical Plan: Patient has done extremely well from a panniculectomy standpoint. She may now resume weight training as she wishes. Regarding her overall meal plan, recommend removing deli meats and just using grilled chicken or fish as a protein source. Decrease water intake to 90 mL max per day Continue exercise as she is doing burning approximately 500 calories daily. Return to the office 6 weeks Orders: Orders TSH reflex Free T4 Today F41.9 - Anxiety disorder, unspecified, Z98.84 - Bariatric surgery status, Z98.890 - Other specified postprocedural states
[2023-10-04 08:46] VITALS: BP 108/53; PULSE 81; TEMP 36.2; O2SAT 100; BMI 26.1
== END 2023-10-04 09:10 | disposition home or self-care (01) ==
PROVIDERS: PCP Internal Medicine; Visit Provider Physician Assistant Surgical
DX: Z98.890 Other specified postprocedural states (principal)
CPT/HCPCS: 99024

== ENCOUNTER 2023-11-07 14:07 | Outpatient (AMB) | payer BC, SELFPAY ==
[2023-11-07 12:53] VITALS: BMI 26.3
--- NOTE | 2023-11-07 12:53 | A.OFFVIS_ITS ---
VS Expanded 11/07/23 12:53 Height 5 ft 6 in Weight 163 lb 2 oz BMI 26.3 Body Fat % 33.9 Body Fat Mass 55.3 Fat Free Mass 107.7 Visceral Fat Rating 10 Body Water % 45.2 Body Water Mass 73.7 Muscle Mass/Score 101.3 Basal Metabolic Rate/Score 1,434 Intake Visit Reasons: PO SWL 12/13/21 Piano Regulator Required: No Allergies vancomycin Allergy (Severe, Verified 10/04/23 08:53) Rash tetracycline Adverse Reaction (Intermediate, Verified 10/04/23 08:53) told to avoid due to intercranial hypertension Medication List - Last Reconciled 11/07/23 by TIBURCIO Mendiola No Known Home Meds HPI Comments Details: This?a?46?yo female who is s/p LSG without hiatal hernia repair on?12/13/[address] Ryan. Presents for 1 year 11 month post op visit. She additionally underwent panniculectomy by Dr. Forman on 07/09/2023. Weight today is 163.2 pounds, with a BMI of 26.3. There has been a 61.2 pound weight loss,(initial weight 224.4 pounds) since starting the program on 07/18/21 reflecting a 27.2% total body weight loss and a weight loss of 26.4 pounds since surgery (operative weight 189.6 pounds) reflecting a 7.9% TBWL since surgery. She feels as though she is in the best shape of her life. She feels as though she has gained weight in her breasts. Present meal plan includes: Celebrate 4:1 shake 2 scoops in 8 oz unsweet [place] milk, 9-11, 1-3 ZP bar 6-8 60 oz additional water daily Exercise daily weights/cardio PFSH Medical History Sleep apnea Pseudotumor cerebri Frequent headaches History of lumbar puncture Low back pain Constipation GERD (gastroesophageal reflux disease) Insomnia Anxiety History of panic attacks PTSD (post-traumatic stress disorder) Depression Surgical History S/P laparoscopic sleeve gastrectomy Hx of colonoscopy Hx of laparoscopy H/O section Social History Household Members Other:: minor children (3) Are you a primary team primary care physician to a significant other at home: Yes Do you presently have visiting nurse or other home services: No Alcohol intake: never Patient Tobacco Use Status: Former Tobacco user Tobacco use type: Cigarette service: No Current occupational status: employed Physical Exam Vital Signs: BMI result Body Mass Index 26.3 Telehealth Telehealth Telehealth Platform: Telephone Location of provider rendering services: practice address Location of patient: address on file Patient Identification confirmed using: Name, : Yes Telehealth method: voice only Patient verbally consented to treatment: Yes Patient verbally consented to billing insurance company: Yes Patient informed of any privacy concerns related to visit: Yes Minutes spent on Phone/Video with Pt.: 15 Assessment & Plan Assessment & Plan (1) S/P laparoscopic sleeve gastrectomy: Comment: 12/2021 Code(s): Z98.84 - Bariatric surgery status Category: Surgical Plan: Patient given the right BMI [place] website and linn. she will incorporate this into her meal plan. She is exercising vigorously. She is scheduled to return to the office in December for her 2 year follow-up. Encouraged to continue to text weekly and with any questions or concerns.
== END 2023-11-07 14:07 | disposition home or self-care (01) ==
LOC: HO.HBS 14:07
PROVIDERS: PCP Internal Medicine; Visit Provider Physician Assistant Surgical
DX: E66.3 Overweight (principal); Z68.26 Body mass index [BMI] 26.0-26.9, adult; Z90.3 Acquired absence of stomach [part of]; Z98.84 Bariatric surgery status
CPT/HCPCS: 99213

== ENCOUNTER → 2023-11-07 14:07 | Outpatient (BNVA) | payer BC, SELFPAY | PROVIDERS: PCP Internal Medicine; Visit Provider Physician Assistant Surgical | DX: Z98.84 Bariatric surgery status (principal); E66.3 Overweight; G93.2 Benign intracranial hypertension; Z98.890 Other specified postprocedural states; F41.9 Anxiety disorder, unspecified ==

== ENCOUNTER 2023-12-20 08:10 | Outpatient (REF) | payer BC, SELFPAY | END 2023-12-20 08:11 | disposition home or self-care (01) | LOC: HO.LAB 08:10 | PROVIDERS: PCP Internal Medicine; Visit Provider Physician Assistant Surgical | DX: Z98.84 Bariatric surgery status (principal); E66.3 Overweight; G93.2 Benign intracranial hypertension; Z98.890 Other specified postprocedural states; F41.9 Anxiety disorder, unspecified; Z13.89 Encounter for screening for other disorder ==

== ENCOUNTER 2023-12-20 08:10 | Outpatient (AMB) | payer BC, SELFPAY ==
--- NOTE | 2023-12-20 08:13 | MHC.OFFVISWM ---
VS Expanded 12/20/23 08:25 BP 107/59 L Blood Pressure Location Rt brachial Blood Pressure Position Sitting Pulse 68 Pulse Source Pulse Oximeter Temp 97.7 F Temperature Source Temporal Artery Scan Pulse Oximetry 100 Oxygen Delivery Method Room Air Height 5 ft 6 in Weight 160 lb 3.2 oz BMI 25.9 Body Fat % 33.1 Body Fat Mass 53.0 Fat Free Mass 107.2 Visceral Fat Rating 6.0 Body Water % 47.7 Body Water Mass 76.2 Muscle Mass/Score 101.6 Basal Metabolic Rate/Score 1,452 Intake Visit Reasons: PO SWL 12/13/21 Educational/Development Assistant Required: No Allergies vancomycin Allergy (Severe, Verified 10/04/23 08:53) Rash tetracycline Adverse Reaction (Intermediate, Verified 10/04/23 08:53) told to avoid due to intercranial hypertension Medication List - Last Reconciled 12/20/23 by TIBURCIO Mendiola No Known Home Meds HPI Comments Details: This?a?46?yo female who is s/p LSG without hiatal hernia repair on?12/13/[address] Ryan. Presents for 2 year post op visit. She additionally underwent panniculectomy by Dr. Forman on 07/09/2023. Weight today is 160.2 pounds, with a BMI of 25.8. There has been a 64.2 pound weight loss,(initial weight 224.4 pounds) since starting the program on 07/18/21 reflecting a 28.6% total body weight loss and a weight loss of 29.4 pounds since surgery (operative weight 189.6 pounds) reflecting a 15.5% TBWL since surgery. She feels as though she is in the best shape of her life. She feels as though she has gained weight in her breasts. Continues MVI and hair skin and nails Present meal plan includes: Celebrate 4:1 shake 1 scoop in 8 oz unsweet [place] milk, 9-11, 1-3 meal w 6 forks protein and 6 forks veg 60 oz additional water daily Exercise daily weights/cardio daily Any post op complications: none ANALI: resolved DM: never HTN: resolved Hyperlipidemia: never GERD:?0-5 scale ??0 = no symptoms ??1 = symptoms noticeable but not bothersome 2 =symptoms bothersome but not daily ? 3 = symptoms bothersome and daily 4 = symptoms affect daily activities 5 = symptoms are incapacitating, unable to do daily activities ? How bad is the heartburn: 0 ? Heartburn while lying down: 1 ? Heartburn when standing up: 0 ? Heartburn after meals: 0 ? Does heartburn change your diet: 0 ? Does heartburn wake you up from sleep: 0 ? Do you have difficulty swallowin ? Do you have pain with swallowin ? If you take medicine for your reflux, does this affect your daily life: 0 Satisfaction with present condition - satisfied or not satisfied: satisfied [facility] Medical History Sleep apnea Pseudotumor cerebri Frequent headaches History of lumbar puncture Low back pain Constipation GERD (gastroesophageal reflux disease) Insomnia Anxiety History of panic attacks PTSD (post-traumatic stress disorder) Depression Surgical History S/P laparoscopic sleeve gastrectomy Hx of colonoscopy Hx of laparoscopy H/O section Social History Household Members Other:: minor children (3) Are you a primary home health care respiratory therapist to a significant other at home: Yes Do you presently have visiting nurse or other home services: No Alcohol intake: never Patient Tobacco Use Status: Former Tobacco user Tobacco use type: Cigarette service: No Current occupational status: employed Physical Exam Const General: cooperative and no acute distress Orientation/consciousness: patient oriented x3 Resp Effort & Inspection: normal respiratory effort Auscultation: clear to auscultation bilaterally Cardio Rate: regular rate Rhythm: regular rhythm GI Inspection: Yes normal to inspection and Yes incision (well healed) Palpation (GI): Soft to palpation and no masses Neuro General: patient oriented x3 Assessment & Plan Assessment & Plan (1) S/P laparoscopic sleeve gastrectomy: Comment: 12/2021 Code(s): Z98.84 - Bariatric surgery status Category: Surgical Plan: check yearly labs add yoga to exercise routine continue mvi continue meal plan and exercise plans pt is very mindful and successful in her weight loss and achieving a healthy weight and lifestyle Orders: Orders Lipid Panel Today F41.1 - Generalized anxiety disorder, G93.2 - Benign intracranial hypertension, Z98.84 - Bariatric surgery status C Reactive Protein Today F41.1 - Generalized anxiety disorder, G93.2 - Benign intracranial hypertension, Z98.84 - Bariatric surgery status Vitamin A Today F41.1 - Generalized anxiety disorder, G93.2 - Benign intracranial hypertension, Z98.84 - Bariatric surgery status TSH reflex Free T4 Today F41.1 - Generalized anxiety disorder, G93.2 - Benign intracranial hypertension, Z98.84 - Bariatric surgery status Ferritin Today F41.1 - Generalized anxiety disorder, G93.2 - Benign intracranial hypertension, Z98.84 - Bariatric surgery status Vitamin D 25-OH Total Today F41.1 - Generalized anxiety disorder, G93.2 - Benign intracranial hypertension, Z98.84 - Bariatric surgery status Basic Metabolic Panel Today F41.1 - Generalized anxiety disorder, G93.2 - Benign intracranial hypertension, Z98.84 - Bariatric surgery status Insulin Today F41.1 - Generalized anxiety disorder, G93.2 - Benign intracranial hypertension, Z98.84 - Bariatric surgery status Hemoglobin A1c Today F41.1 - Generalized anxiety disorder, G93.2 - Benign intracranial hypertension, Z98.84 - Bariatric surgery status Complete Blood Count Auto Diff Today F41.1 - Generalized anxiety disorder, G93.2 - Benign intracranial hypertension, Z98.84 - Bariatric surgery status IRON PROFILE Today F41.1 - Generalized anxiety disorder, G93.2 - Benign intracranial hypertension, Z98.84 - Bariatric surgery status Vitamin B12 and Folate Today F41.1 - Generalized anxiety disorder, G93.2 - Benign intracranial hypertension, Z98.84 - Bariatric surgery status Zinc Today F41.1 - Generalized anxiety disorder, G93.2 - Benign intracranial hypertension, Z98.84 - Bariatric surgery status Vitamin B1 Today F41.1 - Generalized anxiety disorder, G93.2 - Benign intracranial hypertension, Z98.84 - Bariatric surgery status
[2023-12-20 08:25] VITALS: BP 107/59; PULSE 68; TEMP 36.5; O2SAT 100; BMI 25.9
== END 2023-12-20 08:57 | disposition home or self-care (01) ==
PROVIDERS: PCP Internal Medicine; Visit Provider Physician Assistant Surgical
DX: E66.3 Overweight (principal); Z68.27 Body mass index [BMI] 27.0-27.9, adult; Z90.3 Acquired absence of stomach [part of]; Z98.84 Bariatric surgery status
CPT/HCPCS: 99214

== ENCOUNTER 2023-12-24 07:53 | Outpatient (REF) | payer BC, SELFPAY ==
[2023-12-24 08:13] LABS: MANUAL DIFF FLAG NO
[2023-12-24 08:59] LABS: Basophils Percent Auto 0.7 % (0-2); Eosinophils Absolute Auto 0.1 X10*3/uL (0.0-0.4); Eosinophils Percent Auto 2.3 % (0-4); Hematocrit 37.2 % (37.0-47.0); Hemoglobin 12.2 g/dl (12.0-16.0); Imm Gran Abs Auto 0.01 X10*3/uL (0.00-0.03); Imm Gran Pct Auto 0.2 % (0.0-0.4); Lymphocytes Absolute Auto 1.7 X10*3/uL (1.2-4.9); Lymphocytes Percent Auto 29.6 % (20-40); Mean Corpuscular HGB Conc 32.8 g/dl (31.0-35.0); Mean Corpuscular Volume 94.4 fL (80.0-98.0); Mean Platelet Volume 9.9 fL (9.4-12.3); Monocytes Absolute Auto 0.4 X10*3/uL (0.1-1.2); Monocytes Percent Auto 6.1 % (2-11); Neutrophils Absolute Auto 3.5 x10*3/uL (2.0-8.3); Neutrophils Percent Auto 61.1 % (45-73); Platelet Count 237 X10*3/uL (160-400); Red Blood Count 3.94 X10*6/uL (4.20-5.50); Red Cell Distribution Width 11.9 % (11.0-16.0); White Blood Count 5.7 X10*3/uL (4.8-10.8)
[2023-12-24 09:15] LABS: Estimated Average Glucose 108 mg/dL; Hemoglobin A1C 111.6931 umol/L; Hemoglobin A1c % 5.4 % (<6.0)
[2023-12-24 09:45] LABS: Anion Gap 8 (12-20); Blood Urea Nitrogen 16 mg/dL (9-16); C Reactive Protein < 0.10 mg/dL (< or = 0.50); Calcium 10.3 mg/dL (8.4-10.2); Carbon Dioxide 31 mmol/L (22-29); Chloride 106 mmol/L (96-108); Cholesterol 173 mg/dL (<200); Estimated Glomerular Filt Rate > 60; Glucose Random 100 mg/dL (60-115); HDL Cholesterol 72 mg/dL (>40); Iron 170 mcg/dL (30-160); LDL Cholesterol Calculated 84 mg/dL (<100); Percent Iron Saturation 61 % (15-50); Potassium 4.3 mmol/L (3.3-5.1); Sodium 141 mmol/L (135-145); Total Iron Binding Capacity 279 mcg/dL (228-428); Triglycerides 88 mg/dL (<150); Unsaturated Iron Binding 109 ug/dL
[2023-12-24 09:56] LABS: Ferritin 193 ng/mL (10-250); Insulin 6 uU/mL (2-29); TSH reflex Free T4 0.64 uIU/mL (0.32-4.0); Vitamin D 25-OH Total 92.7 ng/mL (>30)
[2023-12-24 10:20] LABS: Folate > 20.0 ng/mL (> or = 4.0); Vitamin B12 1056 pg/mL (200-900)
[2023-12-27 18:54] LABS: Zinc 120 mcg/dL (60-130)
[2023-12-30 06:28] LABS: Vitamin B1 38 nmol/L (8-30)
[2024-01-01 01:13] LABS: Vitamin A 69 mcg/dL (38-98)
== END 2023-12-24 07:54 | disposition home or self-care (01) ==
LOC: HO.LAB 07:53
PROVIDERS: PCP Internal Medicine; Visit Provider Physician Assistant Surgical
DX: Z98.84 Bariatric surgery status (principal); G93.2 Benign intracranial hypertension; F41.1 Generalized anxiety disorder
CPT/HCPCS: 36415; 80048; 80061; 82306; 82607; 82728; 82746; 83036; 83525; 83540; 84425; 84443; 84590; 84630; 85025; 86140

== ENCOUNTER 2024-03-27 08:30 | Outpatient (AMB) | payer BC, SELFPAY ==
--- NOTE | 2024-03-27 08:34 | A.OFFVIS_ITS ---
VS Expanded 03/27/24 08:36 Height 5 ft 6 in Weight 163 lb 5 oz BMI 26.4 Body Fat % 30.4 Fat Free Mass 108 Visceral Fat Rating 10 Body Water % 45.2 Muscle Mass/Score 101.5 Basal Metabolic Rate/Score 1,436 Intake Visit Reasons: TV PO SWL 12/13/21 Allergies vancomycin Allergy (Severe, Verified 10/04/23 08:53) Rash tetracycline Adverse Reaction (Intermediate, Verified 10/04/23 08:53) told to avoid due to intercranial hypertension HPI Comments Details: This?a?46?yo female who is s/p LSG without hiatal hernia repair on?12/13/[address] Ryan. Presents for 2 year 3 month post op visit. She additionally underwent panniculectomy by Dr. Forman on 07/09/2023. Weight today is 163.5 pounds, with a BMI of 26.4. There has been a 60.9 pound weight loss,(initial weight 224.4 pounds) since starting the program on 07/18/21 reflecting a 27.1% total body weight loss and a weight loss of 26.1 pounds since surgery (operative weight 189.6 pounds) reflecting a 13.7% TBWL since surgery. She feels as though she is in the best shape of her life. She feels as though she has gained weight in her breasts. Continues MVI and hair skin and nails She states things were going very well up until saturday when she partially ruptured her right achilles tendon. She cannot bear weight on her right foot and is on crutches. She will to see orthopedics today. Present meal plan includes: Celebrate 4:1 shake 1 scoop in 8 oz unsweet [place] milk, 9-11, 1-3 meal w 6 forks protein and 6 forks veg 60 oz additional water daily Exercise daily weights/cardio daily PFSH Medical History Sleep apnea Pseudotumor cerebri Frequent headaches History of lumbar puncture Low back pain Constipation GERD (gastroesophageal reflux disease) Insomnia Anxiety History of panic attacks PTSD (post-traumatic stress disorder) Depression Surgical History S/P laparoscopic sleeve gastrectomy Hx of colonoscopy Hx of laparoscopy H/O section Social History Household Members Other:: minor children (3) Are you a primary child day care teacher to a significant other at home: Yes Do you presently have visiting nurse or other home services: No Alcohol intake: never Patient Tobacco Use Status: Former Tobacco user Tobacco use type: Cigarette service: No Current occupational status: employed Telehealth Telehealth Telehealth Platform: Telephone Location of provider rendering services: practice address Location of patient: address on file Patient Identification confirmed using: Name, : Yes Telehealth method: voice only Patient verbally consented to treatment: Yes Patient verbally consented to billing insurance company: Yes Patient informed of any privacy concerns related to visit: Yes Minutes spent on Phone/Video with Pt.: 15 Assessment & Plan Assessment & Plan (1) S/P laparoscopic sleeve gastrectomy: Comment: 12/2021 Code(s): Z98.84 - Bariatric surgery status Category: Medical Plan: Overall, doing very well. She has had a setback in the form of a right ankle injury. She is scheduled to see Orthopedics today. She may have had a rupture or partial rupture of her Achilles tendon. She will discuss with them possibly the use of a recumbent bike or swimming if she is able. She will contact me with any advice they give so that we may adjust her meal plan accordingly. Return to clinic 3 months. Text weekly and with any questions or concerns.
[2024-03-27 08:36] VITALS: BMI 26.4
--- OUTSIDE RECORDS SUMMARY | 2024-03-27 09:14 | XMS_ITS | Continuity of Care Document ---
Author Organization [facility] ter Address [address] [place] [address]- Care Team Providers Care Fighting Vehicle Infantryman Name Role Phone Mary Olvera MD Primary Care Physician [id number] Date(s): 03/25/24 - 03/25/[address] [address]- Discharge Disposition: A-D/C Home Attending Physician: Andrey Neil MD Admitting Physician: Andrey Neil MD Referring Physician: Not on Staff, Referring MD Encounter Type: Disch ES Allergies, Adverse Reactions, Alerts Substance Criticality Severity Reaction Reaction Severity Status tetracycline MEDICAL CONDITION Active lidocaine Active vancomycin Active Immunizations Given and Recorded Vaccine Date Status Refusal Reason influenza virus vaccine, inactivated 11/24/22 Moises rded influenza virus vaccine, inactivated 12/03/21 Moises rded influenza virus vaccine, inactivated 12/21/20 Moises rded influenza virus vaccine, inactivated 10/23/19 Moises rded influenza virus vaccine, inactivated 12/04/17 Moises rded influenza virus vaccine, inactivated 1 11/16/17 Re corded influenza virus vaccine, inactivated 12/14/16 Give n influenza virus vaccine, inactivated 11/23/13 Give n influenza virus vaccine, inactivated 2 12/03/11 Gi cely SARS-CoV-2(COVID-19)mRNA-LNP vac([id number]) 11/24/22 Recorded [id number] 12y+ bivalent booster vax 12/03/21 Recorded SARS-CoV-2 (COVID-19) mRNA-1273 vaccine 06/05/21 R ecorded SARS-CoV-2 (COVID-19) mRNA BNT-162b2 vac 01/04/21 Recorded SARS-CoV-2 (COVID-19) mRNA BNT-162b2 vac 06/28/20 Recorded SARS-CoV-2 (COVID-19) mRNA BNT-162b2 vac 06/28/20 Recorded SARS-CoV-2 (COVID-19) mRNA BNT-162b2 vac 05/22/20 Recorded Influenza Virus Vaccine (oldterm) 11/03/18 Recorde d Fluvirin (oldterm) 3 11/10/14 Recorded tetanus/diphtheria/pertussis, acel(Tdap) 4 04/17/12 Given 1Location History: [facility] 2Admin Note: MANUFACTURE BIOMEDICAL VIS SHEET GIVEN (09/26/2010) GIVEN W/O INCIDENT 3Location History: [facility] 4Admin Note: vis date 03/27/2011 Medications CBD CBD, Refills 0, Maintenance, 07/19/20 9:34:00 AM EDT, Supply Start Date: 07/19/20 Status: Ordered Repeat number: 1 Freestyle Lite Lancets See Instructions, # 200 each, Refills 3, Tot. Refills 3, Maintenance, Test twice daily DX R73.01, 09/12/20 12:45:00 PM EDT, Supply, 165.5, cm, 07/19/20 8:53:00 EDT, Height Start Date: 09/12/20 Status: Ordered Quantity: 200.0 Unit: each Repeat number: 4 Indication: Type 2 diabetes mellitus without complications Freestyle Lite Monitor See Instructions, # 1 each, Refills 0, Tot. Refills 0, Maintenance, Test twice daily as needed. DXR73.01, 08/11/20 10:56:00 AM EDT, Supply, 165.5, cm, 07/19/20 8:53:00 EDT, Height Start Date: 08/11/20 Status: Ordered Quantity: 1.0 Unit: each Repeat number: 1 Freestyle Lite Test Strips See Instructions, # 200 each, Refills 3, Tot. Refills 3, Maintenance, Test twice daily DX R73.01, 09/12/20 12:43:00 PM EDT, Supply, 165.5, cm, 07/19/20 8:53:00 EDT, Height Start Date: 09/12/20 Status: Ordered Quantity: 200.0 Unit: each Repeat number: 4 Indication: Type 2 diabetes mellitus without complications Mirena 52 mg intrauteral device 1 each = 52 mg, Once, 0 Refills, Maintenance, 12/17/11 10:17:25 AM EDT Start Date: 12/17/11 Status: Ordered Repeat number: 1 Multivitamin 0 Refills, Maintenance, 02/11/23 10:53:00 AM EST, Partial fill upon patient request if the prescription is for a schedule II opioid drug. Start Date: 02/11/23 Status: Ordered Repeat number: 1 Paxlovid Paxlovid, See Instructions, # 1 Unknown, Refills 0, Tot. Refills 0, Maintenance, 300 mg nirmatrelvir (two 150 mg tablets) with 100 mg ritonavir (one tablet). All 3 tablets taken together twice daily for 5 days with or without food., 02/11/23 10:54:00 AM EST, Normal kidney function, Supply, 165, cm,02/11/23 10:31:00 EST, Height Start Date: 02/11/23 Status: Ordered Quantity: 1.0 Unit: Unknown Repeat number: 1 Indication: COVID-19 Problem List Condition Confirmation Course Effective Dates Status H ealth Status Informant Anxiety Confirmed Active Fever blister Confirmed Active History of idiopathic intracranial hypertension Confirmed Active IFG (impaired fasting glucose) Confirmed Active Joint pain Confirmed Active Panic attack Confirmed 12/17/11 Active Patellofemoral maltracking Confirmed Active Results Radiology Reports * Exam Date Time Procedure Performing Provider Status 03/25/24 5:27 PM Ankle Min 3 Views Right Mayra Hendricks la; Auth (Verified) Notes: (Ankle Min 3 Views Right) Reason For Exam: with Pain;Trauma RESULT: Ankle Min 3 Views Right Ankle Min 3 Views Right Hx of Present Illness: stepped backward hyper flexed rt foot pain posterior ankle; Reason: Trauma; with Pain; Clinical Question(s): Fracture COMPARISON: None. FINDINGS: No evidence of acute or healing fracture or bone lesion. Intact ankle mortise and talar dome. No arthritic changes. Normal soft tissues. IMPRESSION: No acute abnormality identified. WSN: [id number] Ordering Physician: Andrey Neil Dictated By: Angel Reynoso MD Dictated Date/Time: 03/25/24 5:56 pm Reviewed By: Angel Reynoso MD Signed By: Angel Reynoso MD Signed Date/Time: 03/25/24 5:56 pm Transcribed By: RUPALI Transcribed Date/Time: 03/25/24 5:55 pm Vital Signs Most recent to oldest [Reference Range]: 1 2 Height 168 cm (03/25/24 6:54 PM) 168 cm (03/25/24 2:34 PM) Weight 73.5 kg (03/25/24 6:54 PM) 73.5 kg (03/25/24 2:34 PM) Oxygen Saturation [94-100 %] 100 % (03/25/24 6:54 PM) 100 % (03/25/24 2:34 PM) Pulse Rate [55-90 bpm] 58 bpm (03/25/24 6:54 PM) 50 bpm *L* (03/25/24 2:34 PM) Body Mass Index [18.5-24.99 kg/m2] 26.04 kg/m2 *H* (03/25/24 6:54 PM) 26.04 kg/m2 *H* (03/25/24 2:34 PM) Blood Pressure [90-138/55-84 mm Hg] 102/ 65mm Hg (03/25/24 6:54 PM) 108/72mm Hg (03/25/24 2:34 PM) Respiratory Rate [16-30 br/min] 20 br/mi n (03/25/24 6:54 PM) 20 br/min (03/25/24 2:34 PM) Temperature [96.8-100.4 DegF] 98.0 DegF (03/25/24 2:34 PM) Mode of Delivery (Oxygen) Room air (03/25/24 6:54 PM) Room air (03/25/24 2:34 PM) Blood pressure sites Arm, left (03/25/24 6:54 PM) Arm, right (03/25/24 2:34 PM) Temperature Route Oral (03/25/24 2:34 PM) Dry Weight 73.5 kg (03/25/24 6:54 PM) 73.5 kg (03/25/24 2:34 PM) Weight Obtained Via Patient/family state d (03/25/24 2:34 PM) Dry Weight Obtained Via Patient/family s tated (03/25/24 2:34 PM) Social History Social History Type Response Smoking Status Former smoker; Type: Cigarettes; Tobacco use times per day: smoked 1/2 ppd; Started at age: 13; Stopped at age: 21; entered on: 11/23/13 Sex Sex Representation Female (finding) Note * Juwan Weir: PERFORM Event Display: Patient Education Leaflets Authored Date: [id number] Achilles Tendon Rupture, Partial or Complete ?? [id number] Achilles Tendon Rupture, Partial or Complete The Achilles tendon connects the muscles in the back of your lower leg to your heel bone. It lets you point your foot down. This is called a ???step on the gas pedal?? motion. This movement is important for walking, running, and jumping. A sudden strong contraction of the lower leg can partially tear (rupture) the Achilles tendon. This injury can happen while playing sports. This injury is more likely if you have injured the tendon in the past. It is also more likely if the tendon is inflamed from stress.?? When the injury happens, you may feel a pop or snap, or like you have been kicked. An Achilles tendon tear will cause swelling, bruising, and pain in the ankle area. You will have trouble walking??orpushing off the ground with your foot.?? A complete Achilles tear is often treated with surgery to attach the torn ends of the tendon. This is followed by??up to 12 weeks in a walking cast, boot, or splint. The injury can also be treated without surgery, but the tendon will take longer to heal. The risk of rupturing it again is also greater than with surgery. With either type of treatment, you may need physical therapy to strengthen your Achilles tendon. It??often??takes up to 6 months??to return to your past level of activity. And ittakes about 1 year to fully recover. Home care Medicine Your healthcare provider may prescribe medicines for pain. Or you may use acetaminophen or Ibuprofen to control the pain. Talk with your provider before taking these medicines if you have chronic liver or kidney disease. Also talk with your provider if you have had an ulcer or gastrointestinal bleeding. General care ??? Rest.??Use crutches as directed. Don't put any weight on the injured leg until your healthcare provider says it is OK.?? You will be told to see an orthopedic doctor as soon as possible. This is a doctor with special training to treat bone and muscle problems. ??? Use ice.??Put a cold pack on the injured area for 20 minutes at a time. Do this at least 4 to 8 times a day for the first 48 hours. After the first 48 hours, use the cold pack to ease pain and swelling, as needed. Youcan make your own cold pack from a sealed bag of frozen peas or ice. Wrap the bag in a towel.??Don???t put the cold source directly on your skin.??(If you are using ice, be careful to avoid getting the cast wet as the ice melts.) If you have a splint that can't be removed, put the cold pack over the splint. ??? Use compression.??The healthcare provider may give you an elastic wrap, boot, air cast, or splint to help ease swelling. Use this as the provider tells you to. ??? Elevate your leg.??During the first 48 hours, keep your injured leg elevated on a pillow when you are sitting or lying down. The pillow should be at a level above your heart. This is very important to reduce swelling. ??? Keep the splint or cast dry.??When bathing, protect it with a large plastic bag.??Make sure to tape the plastic bag??closed, or use rubber bands. If a fiberglass splint or cast gets wet, you can dry it with a english division chair. ?? Follow-up care You will be referred to an orthopedic doctor for follow-up care. Surgery may be needed to repair this injury, so it is very important to make an appointment with the specialist as soon as you can. ?? When to get medical advice Call your healthcare provider right away if any of these occur: ??? A plaster splint or cast gets wet or soft or breaks ??? A fiberglass splint or cast gets wet and doesn't dry in 24 hours ??? Pain or swelling gets worse, or redness appears ??? Toes??or the injured area??become cold, blue, numb, ortingly ??? You can't put weight on the injured leg after being told to do so ?? Last Reviewed Date: 2021 ?? [id number] [employer]. All rights reserved. This information is not intended as a substitute for professional medical care. Always follow your healthcare professional's instructions. ?? Patient Care team information Care Team Personnel Name: Mary Olvera MD Position: S Physician - Primary Care Member Role: PCP Address: [address] [place] [address] Telecom: Care Team Related Persons Name: KARTHIKEYAN MOREL Name: CHRIS ROMAN Insurance Providers Guarantor name: KAYLEE MOREL Health Plan Information #: 1 Payer: HMO [employer] Member Number: [id number] Policy Number: NA Group Number: [id number] Health Plan Information #: 2 Payer: HMO [employer] Member Number: [id number] Policy Number: NA Group Number: [id number]
--- OUTSIDE RECORDS SUMMARY | 2024-03-27 09:14 | XMS_ITS | Data Portability ---
Author Organization [facility], RADIOLOGY Address [address] [place] [address] Assessment Encounter Date Assessment Date Assessment LastModified by Organization Details LastModified Time 09/04/2019 09/04/2019 Reports history of antibiotic resistance. Not available 09/04/2019 18:59:21 Plan of Treatment Reminders Order Date Submit Date Provider Last Modified By Organization Details Last Modified Time Details Appointments None recorded. Lab None recorded. Referral None recorded. Procedures None recorded. Surgeries None recorded. Imaging None recorded. Medication Orders Cipro HC 0.2 %-1 % ear drops,susp ension [address]/[facility] [id number], [address] [place], [address], 0 16:11:54 Augmentin 875 mg-125 mg tablet [id number], [address] [place], [address], 0 16:11:50 clindamyci n HCl 300 mg capsule 2019 020 [facility]FACE [facility]/Pharmacy #[id number], [address] [place], [address], 0 16:45:21 Patient TargetsNo targets recorded. Patient Instructions Encounter Date Encounter Id Patient Instructions Last Modified By Organization Details Last Modified Time 09/04/2019 [id number] cellulitis: care instructions Not available 09/04/2019 16:45:20 Take the antibiotic as directed until completed. Keep the area clean, may continue use of abx ointment. Watch for signs of worsen ing of infection (redness, swelling, changes in drainage) or any other signs of worsening of symptoms, and follow up with your PCP for reevaluation. Not available 09/04/2019 19:00:18 Reason for Referral None Reported. Problems Name Problem SNOMED Code Status Onset Date Resolution Date Notes Provider Name and Address Organization Details Recorded Time Panic attack 641383867 Active [facility] 0 16:12:25 Posttraumatic stress disorder 48864120 [facility] 0 16:12:39 Benign intracranial hypertension [id number] [facility] 0 16:13:32 Problem Notes None recorded. Procedures Surgical History Date Name Laterality Status Provider Name and Address Organization Details Recorded Time section completed [facility] 09/04/2019 16:14:02 tonsilectomy/a denoids completed [facility] 09/04/2019 16:14:09 Imaging Results None recorded. Procedure Notes None recorded. Medical Equipment None Reported. Allergies Allergen ID Allergen Name Allergen Category Reaction Reaction Severity Criticality Documentation Date Start Date Code Code System Note Provider Name and Address Organization Details Recorded Time 6064 vancomyci n medicatio n Not available Not available Not available 09/05/2017 86394 RxNorm Laura Scelza [facility] 8 13:52:38 6065 Product containin g tetracycl ine and antibioti c (product) medicatio n Not available Not available Not available 09/05/2017 56623 1004 [facility] 8 13:52:48 6066 lidocaine medicatio n Not available Not available Not available 09/05/2017 6387 RxNorm Laura Scelza [facility] 8 13:52:53 Medications Name Sig Start Date Stop Date Status Note LastModified by Organization Details LastModified Time Augmentin 875 mg-125 mg tablet Take 1 tablet every 12 hours by oral route after meals for 10 days. 09/03 completed Not Available Not Available Not Available clindamycin HCl 300 mg capsule Take 1 capsule every 6 hours by oral route as directed for 10 days. 2019 active Not Available Not Available Not Avai lable clonazepam 1 mg tablet Take 1 tablet twice a day by oral route as needed. 09/03 completed Not Available Not Available Not Available topiramate 25 mg tablet Take 1 tablet every day by oral route. 09/03 completed Not Available Not Available Not Available alprazolam 0.5 mg tablet Take 1 tablet every day by oral route as needed. 09/03 completed Not Available Not Available Not Available Cipro HC 0.2 %-1 % ear drops,suspe nsion INSTILL 3 DROPS INTO AFFECTED EAR(S) BY OTIC ROUTE EVERY 12 HOURS 09/03 completed Not Available Not Available Not Available Vitals Date Recorded Body weight Body mass index (BMI) Body height Oxygen saturation Oxygen saturation in Arterial blood by Pulse oximetry Heart rate Body temperature Systolic blood pressure Diastolic blood pressure Provider Name and Address Organization Details Last Updated DateTime 8 22796.7 7 g 34.5 kg/m2 167.64 cm 100 % 100 % 89 /min 98 [degF] 117 mm[Hg] 65 mm[Hg] Laura Brockjuan [facility] 8 13:56:38 Date Recorded Body temperature Heart rate Oxygen saturation Oxygen saturation in Arterial blood by Pulse oximetry Systolic blood pressure Diastolic blood pressure Provider Name and Address Organization Details Last Updated DateTime 0 98.3 [degF] 70 /min 97 % 97 % 117 mm[Hg] 78 mm[Hg] Cat [facility] 0 16:16:21 Social History None recorded. Functional Status None recorded. Mental Status None recorded. Family History Nothing Reported. Medical History No medical history recorded. Gynecological HistoryNo gynecological history recorded. Obstetrics History GPAL:G 0 P 0 0 0 0 Past Encounters Encounter ID Performer Location Encounter Start Date Encounter Closed Date Diagnosis/Indication Diagnosis SNOMED-CT Code Diagnosis ICD10 Code Diagnosis Note [id number] [facility] [address] [place] [address] 09/05/2017 13:45:47 09/05/2017 14:43:55 Acute otitis media 9045131 H66.91 Ibuprofen OTC follow up with PMD for recheck next week. Otitis externa 9580421 H 60.91 No swimming. Water precaution s when showering Use ear drops as directed [id number] [facility] [address] [place] [address] 09/04/2019 16:05:43 09/04/2019 19:09:45 Cellulitis 406023731 L03.90 Health Concerns Section Related Observation LastModified by Organization Detai ls LastModified Time None Recorded Concern Status LastModified by Organization Details LastModified Time None Recorded Advance Directives Directive None Recorded Payers Encounter Date Sequence Insurance Name Policy Number Policy Liu Covered Member ID Liu Member ID Guarantor Name 09/05/2017 1 [facility] [id number] Jo A Woo [id number] Jora Mcknight 09/04/2019 1 [facility] [id number] Jo Mcknight [id number] Jo Mcknight Notes Date Note Type Note Provider Name and Address Organization Details Recorded Time 09/05/2017 text/html 42 year old fema le here for evaluation of right ear pain. She has pain when touch and chew as well. she has a long history of ear infections with multiple surgeries with tubes. She had bilateral tympanoplasties in childhood. Pain with touching ears as well. States she put phone to her ear and was so painful she started to cry. She denies any constitutional symptoms. she was recently diagnosed with Lupus and has pending appointment for evaluation. Teri luna, [facility] 09/05/2017 14:43:51 09/04/2019 text/html Patient presents with c/o left nasal irritation, swelling, and pain. Reports that initial irritation and redness began last night. Reports that swelling and difficulty breathing through nare was noted this morning upon awakening. Has been cleansing and applying abx ointment throughout the day. History of nasal infection in the past, previously treated with ointment and oral antibiotics. Denies fever, chills, cough or cold sx. [facility] 19:09:38 OBGyn Episode No OBEpisode recorded.
== END 2024-03-27 10:33 | disposition home or self-care (01) ==
LOC: HO.HBS 08:54
PROVIDERS: PCP Internal Medicine; Visit Provider Physician Assistant Surgical
DX: E66.3 Overweight (principal); Z68.26 Body mass index [BMI] 26.0-26.9, adult; Z90.3 Acquired absence of stomach [part of]; Z98.84 Bariatric surgery status
CPT/HCPCS: 98967

== ENCOUNTER → 2024-03-27 08:30 | Outpatient (BNVA) | payer BC, SELFPAY | PROVIDERS: PCP Internal Medicine; Visit Provider Physician Assistant Surgical | DX: Z98.84 Bariatric surgery status (principal); E66.3 Overweight; G93.2 Benign intracranial hypertension; Z98.890 Other specified postprocedural states; F41.9 Anxiety disorder, unspecified; F41.1 Generalized anxiety disorder ==

== ENCOUNTER 2024-05-21 09:31 | Outpatient (AMB) | payer BC, SELFPAY ==
--- NOTE | 2024-05-21 07:56 | MHC.OFFVISWM ---
VS Expanded 05/21/24 07:57 Height 5 ft 6 in Weight 156 lb 9 oz BMI 25.3 Body Fat % 29.1 Fat Free Mass 106.1 Visceral Fat Rating 9 Body Water % 46.3 Muscle Mass/Score 99.7 Basal Metabolic Rate/Score 1,403 Intake Visit Reasons: TV PO SWL 12/13/21 Foil Operator Required: No Allergies vancomycin Allergy (Severe, Verified 10/04/23 08:53) Rash tetracycline Adverse Reaction (Intermediate, Verified 10/04/23 08:53) told to avoid due to intercranial hypertension Medication List - Last Reconciled 05/21/24 by TIBURCIO Mendiola No Known Home Meds HPI Comments Details: This?a?49?yo female who is s/p LSG without hiatal hernia repair on?12/13/[address] Ryan. Presents for 2 year 5 month post op visit. She additionally underwent panniculectomy by Dr. Forman on 07/09/2023. Weight today is 156.9 pounds, with a BMI of 25.3. There has been a 67.5 pound weight loss,(initial weight 224.4 pounds) since starting the program on 07/18/21 reflecting a 30% total body weight loss and a weight loss of 32.7 pounds since surgery (operative weight 189.6 pounds) reflecting a 17.2% TBWL since surgery. She feels as though she is in the best shape of her life. 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 She states things were going very well, recovering from R achilles tendon injury. Present meal plan includes: optum nutrition shake 1 scoop in 8 oz unsweet [place] milk, 530-730, 8-10, 12-2 (24 gm per scoop) meal w 6 forks protein and 6 forks veg 60 oz additional water daily Exercise daily: cardio 500-600 clarisa daily weights PFSH Medical History Sleep apnea Pseudotumor cerebri Frequent headaches History of lumbar puncture Low back pain Constipation GERD (gastroesophageal reflux disease) Insomnia Anxiety History of panic attacks PTSD (post-traumatic stress disorder) Depression Surgical History S/P laparoscopic sleeve gastrectomy Hx of colonoscopy Hx of laparoscopy H/O section Social History Household Members Other:: minor children (3) 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 at home: Yes Do you presently have visiting nurse or other home services: No Alcohol intake: never Patient Tobacco Use Status: Former Tobacco user Tobacco use type: Cigarette service: No Current occupational status: employed Telehealth Telehealth Telehealth Platform: Telephone Location of provider rendering services: practice address Location of patient: address on file Patient Identification confirmed using: Name, : Yes Telehealth method: voice only Patient verbally consented to treatment: Yes Patient verbally consented to billing insurance company: Yes Patient informed of any privacy concerns related to visit: Yes Minutes spent on Phone/Video with Pt.: 15 Assessment & Plan Assessment & Plan (1) S/P laparoscopic sleeve gastrectomy: Comment: 12/2021 Code(s): Z98.84 - Bariatric surgery status Category: Surgical Plan: Patient will decrease scoop to half per shake. Continue current meal plan except for the decrease in shake scoop volume. Continue exercises she is doing. Return to clinic 3 months.
[2024-05-21 07:57] VITALS: BMI 25.3
== END 2024-05-21 09:36 | disposition home or self-care (01) ==
LOC: HO.HBS 09:31
PROVIDERS: PCP Internal Medicine; Visit Provider Physician Assistant Surgical
DX: Z71.3 Dietary counseling and surveillance (principal); Z90.3 Acquired absence of stomach [part of]; Z98.84 Bariatric surgery status
CPT/HCPCS: 98967

== ENCOUNTER 2024-08-10 09:30 | Outpatient (AMB) | payer BC, SELFPAY ==
[2024-08-10 08:20] VITALS: BMI 24.4
--- NOTE | 2024-08-10 08:20 | MHC.OFFVISWM ---
VS Expanded 08/10/24 08:20 Height 5 ft 6 in Weight 151 lb 7 oz BMI 24.4 Body Fat % 30.9 Fat Free Mass 104.7 Visceral Fat Rating 8 Body Water % 47.3 Muscle Mass/Score 98.4 Basal Metabolic Rate/Score 1,381 Intake Visit Reasons: TV PO SWL 12/13/21 Allergies vancomycin Allergy (Severe, Verified 10/04/23 08:53) Rash tetracycline Adverse Reaction (Intermediate, Verified 10/04/23 08:53) told to avoid due to intercranial hypertension HPI Comments Details: This?a?49?yo female who is s/p LSG without hiatal hernia repair on?12/13/[address] Ryan. Presents for 2 year 8 month post op visit. She additionally underwent panniculectomy by Dr. Forman on 07/09/2023. Weight today is 151.7 pounds, with a BMI of 24.4. There has been a 72.7 pound weight loss,(initial weight 224.4 pounds) since starting the program on 07/18/21 reflecting a 32.3% total body weight loss and a weight loss of 37.9 pounds since surgery (operative weight 189.6 pounds) reflecting a 19.9% TBWL since surgery. She feels as though she is in the best shape of her life. 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 Taking fiber gummy She states things were going very well, previously recovering from R achilles tendon injury, she had recovered but re-injured her ankle after joining a new gym. There was an equipment malfunction where screws came off the pedal. She has been doing home physical therapy exercises that she learned from her previous injury and is showing some improvement. Present meal plan includes: ascent nutrition shake 1/2 scoop in 8 oz unsweetened [place] milk, 530-730, 8-10, 12-2 (25 gm per scoop) meal w 6 forks protein and 6 forks veg 60 oz additional water daily Exercise daily: cardio 500-600 clarisa daily weights PFSH Medical History Sleep apnea Pseudotumor cerebri Frequent headaches History of lumbar puncture Low back pain Constipation GERD (gastroesophageal reflux disease) Insomnia Anxiety History of panic attacks PTSD (post-traumatic stress disorder) Depression Surgical History S/P laparoscopic sleeve gastrectomy Hx of colonoscopy Hx of laparoscopy H/O section Social History Household Members Other:: minor children (3) Are you a primary adult care provider to a significant other at home: Yes Do you presently have visiting nurse or other home services: No Alcohol intake: never Patient Tobacco Use Status: Former Tobacco user Tobacco use type: Cigarette service: No Current occupational status: employed Telehealth Telehealth Telehealth Platform: Telephone Location of provider rendering services: practice address Location of patient: other Patient Identification confirmed using: Name, : Yes Telehealth method: voice only Patient verbally consented to treatment: Yes Patient verbally consented to billing insurance company: Yes Patient informed of any privacy concerns related to visit: Yes Minutes spent on Phone/Video with Pt.: 12 Assessment & Plan Assessment & Plan (1) S/P laparoscopic sleeve gastrectomy: Comment: 12/2021 Code(s): Z98.84 - Bariatric surgery status Category: Medical Plan: Patient has done very well. She has achieved a healthy weight and healthy lifestyle. She has adapted to post sleeve gastrectomy meal plans. She is still able to have a small piece of cake at a wedding or birthday libertarian but overall feels great and follows her meal plan accordingly. She is not having any difficulty with bowel movements and overall strength has improved despite recent re-injury of her right ankle. Encouraged to incorporate more weight training and we will have her return to the office towards the end of October. Encouraged to text with any questions or concerns.
--- OUTSIDE RECORDS SUMMARY | 2024-08-10 10:32 | XMS_ITS | Patient Health Record ---
Author Organization [facility] [address] Address [address] [place] [address] Care Team Providers Care Vacuum Bottle Assembler Name Role Phone Mary Olvera Primary Care Provider Unavaillizette e COURTNEY RIOS Unavailable [phone] SAMANTHA MCCALL Unavailable [phone] Allergies Allergen (clinical drug ingredient) Drug/Non Drug Allergy documented on EMR Reaction Allergy Type Onset Date Status tetracycle (uncoded) adverse reaction to interceanial hypertension Allergy Active vancomycin Vancomycin rash Drug Allergy Activ e Results Component Value Reference Range Notes Comp. Metabolic Panel [id number] Reviewed date:07/15/2024 01:06:26 PM Interpretation: Performing Lab:[facility], [address] [facility], [place], Phone - [phone], Director - Dana Notes/Report: Glucose 79 70-99 mg/dL BUN 16 6-24 mg/dL Creatinine 0.69 0.57-1.00 mg/dL eGFR 107 >59 mL/min/1.73 BUN/Creatinine Ratio 23 9-23 Sodium 137 134-144 mmol/L Potassium 4.2 3.5-5.2 mmol/L Chloride 99 96-106 mmol/L Carbon Dioxide, Total 20 20-29 mmol/L Calcium 9.4 8.7-10.2 mg/dL Protein, Total 7.0 6.0-8.5 g/dL Albumin 4.4 3.9-4.9 g/dL Globulin, Total 2.6 1.5-4.5 g/dL Bilirubin, Total 0.2 0.0-1.2 mg/dL Alkaline Phosphatase 61 44-121 IU/L AST (SGOT) 20 0-40 IU/L ALT (SGPT) 17 0-32 IU/L Reason For Referral Diagnosis 1 Dietary counseling a nd surveillance (Z71.3) Referred Provider Mary Olvera Referred Provider Specialty Weight Manag ement Referral Priority Routine Medications Medication SIG (Take, Route, Fr equency, Duration) Notes Start Date End Date Status Wegovy 0.5 MG/0.5ML INJECT 0.5 ML SUBCUT ANEOUSLY ONE TIME PER WEEK Subcutaneous once a week for 30 days Active Social History Tobacco Use: Social History Observation Description Date Details (start date - stop date) Former Smoker NA - NA Tobacco Use/Smoking Question Answer Notes Are you a former smoker How long has it been since you last smoked? > 10 years Alcohol Screen (Audit-C) Question Answer Notes Did you have a drink contain ing alcohol in the past year? Yes How often did you have a dri nk containing alcohol in the past year? 2 to 3 times a week (3 points) Points 3 Interpretation Positive Tobacco use other than smoking: Question Answer Notes Are you an other tobacco user? No Problems Problem Type SNOMED Code ICD Code Onset Dates Problem Status W/U Status Risk Notes Problem Overweight (477255079) Overweight (E66.3) Active confirmed Problem Intracranial hypertension (G93.2) Active confirmed Vital Signs Heart Rate 64 /min 07/14/2024 Oximetry 96 % 07/14/2024 Blood pressure diastolic 72 mm Hg 07/14/2024 Height 63 in 07/14/2024 Blood pressure systolic 118 mm Hg 07/14/2024 Weight 156.1 lbs 07/14/2024 BMI 27.65 kg/m2 07/14/2024 Encounters Encounter Location Date Provider Diagnosis [facility] [address] [place] [address] 05/19/2024 COURTNEY GABRIEL Overweight E66.3 ; B vita mass index [BMI] 28.0-28.9, adult Z68.28 and Intracranial hypertension G93.[address] [facility] [address] [place] [address] 06/16/2024 COURTNEY GABRIEL Overweight E66.3 ; B VT 27.0-27.9,adult Z68.27 and Intracranial hypertension G93.[address] [facility] [address] [place] [address] 07/14/2024 COURTNEY GABRIEL Overweight E66.3 ; B VT 27.0-27.9,adult Z68.27 ; Dietary counseling Z71.3 and Intracranial hypertension G93.2 [facility] [address] [address] 05/19/2024 COURTNEY BARRIGAR [facility] [address] [facility] [address] [place] [address] 05/20/2024 COURTNEY BARRIGAR [facility] [address] [place] [address] 06/17/2024 COURTNEY GABRIEL Assessments Encounter Date Diagnosis (ICD Code) Assessment Notes Treatment Notes Treatment Clinical Notes Section Notes 05/19/2024 Overweight (ICD-10 - E66.3) Jo is a pleasant 49-year-old female who presents to the office today for weight management consultation. 05/19/2024: BMI 28.32, weight 159.9 begin semaglutide 0.25 mg in office today subcutaneous injection weekly. Will submit for Wegovy at this time, however cannot guarantee coverage, patient aware. Patient was counseled on the importance EATING local, organic food when possible. Patient was educated on clean 15 and dirty dozen. I provided information about reading books called The Food Rules by Catalino Brown and Eat Fat Get Lean by Dr Lawson Akhtar. Self education is important in the journey for weight management. Patient was offered diagnostic testing. We want to measure visceral adiposity, advanced body composition, adverse lipids, fatty acid balance, risk for heart disease and atherosclerosis, markers of inflammation and genetic susceptibility. Patient was counseled on weight management and was advised to lose weight using A. Meal Replacement Products Patient was educated on the replacement products called optifast. This is a good way of taking fixed amount of calories. It has been shown in studies to be ineffective weight management tool. This however has to be coupled with lifestyle intervention as well as laboratory data and EKG monitoring. It is impossible to know how a person will tolerate complete meal replacement. The side effects of meal replacement and weight loss could include syncopal attacks, dizziness, gallstones, potential cholecystectomy, possible heart attack and even . The benefits of meal replacement would be potential weight loss but no guarantees can be made. Meal replacement products are not covered by insurance. Once the patient has bought these products we cannot return them B. Lifestyle management which includes several strategies as below 1. Eat a low carbohydrate good fat good protein diet. Eliminate refined carbohydrates from the diet. Continue blood sugar and sugared beverages. Eat local organic when possible. Cook your own meals. Read food labels. None about healthy snacks. Portion control and food with low glycemic index 2. Exercise regularly. Try to get at least 6000 steps a day. Use a predominant to track activity level. Consider using apps like Collective Bias, Cequenspal, lose it, stick as needed for self-monitoring and weight management. Consider group exercises. Consider hiring a clinical trainer. Regular exercise is chung to sustainable health and prevents as a buffer against weight regain 3. Sleep is most important for healing. Tried to sleep at least 8 hours a night. A good quality sleep needs a sleep ritual with ideal room temperature of around 68. It might help to take a shower and have no electronics in the room and sleep in a very dark room without artificial light. Start her sleep routine and get up early in the morning and go to bed on time 4. Make a social connection. Surround yourself with positive people with positive energy. Connect with friends and family. 5. Get into the habit of meditating and mindfulness while doing everything. 6. Go outside and connect with nature. C. Prescription medications Patient was educated on the use of prescription medications for medical weight loss. This is a growing list and includes phentermine, Topamax,Qsymia, contrave, belviq and saxenda. All prescription medications could have side effects including but not limited to kidney stones seizure disorder cardiac arrhythmias heart attack pancreatitis etc. etc.. Patient was encouraged to read the prescription insert and have coaching with their pharmacist and make an informed decision about taking medication and know that these medications are being prescribed with good intentions and we do not know how a patient would react to her medication. Sudden medications are FDA approved for weight loss and there is also off label use depending on patient's inability to afford medications in an attempt to lose weight D. Behavioral counseling was done to establish a relationship between food and an mood. Patient was provided information about local counseling including the office of Dr. Ruiz in [place] and Dr Navarrete at [place]. We would like to cover regular topics and build on low glycemic eating exercise mindful eating, using yoga and meditation along with deep breathing and connecting with friends and family. E. Patient's current medications were reviewed and opinion was given on medication that can cause weight gain and can be substituted F. Patient was assessed for risk with obesity including and not limiting to atherosclerosis heart disease stroke kidney disease, restrictive lung disease, irritable bowel syndrome and overall mortality. Risk of developing prediabetes diabetes and metabolic syndrome was discussed G. Therapeutic plan: We have decided to make therapeutic plan which would include choosing wisely on calories restricting portion getting active, tracking weight, getting good quality sleep and working on time management H. Patient will follow up in 4 weeks for weight management Total time spent today was 60 minutes of which greater than 50% was spent on coordinating and counseling All questions have been answered to patient's satisfaction. Patient verbalized understanding of diagnosis and treatments explained. Advised to call sooner prior to next visit it any questions/concerns arise. Case discussed with Karina LOVELACE who reviewed the assessment and plan. Chart, medications, labs, vital signs reviewed. Dictation was accomplished with the use of [employer] voice recognition software, which is prone to medical misidentifications and grammatical errors. This are unintentional and the practitioner does try to identify and correct these, but some could still be present. Please do not hesitate to contact practitioner for clarification. 05/19/2024 Body mass index [BMI] 28.0-28.9, adult (ICD-10 - Z68.28) Jo is a pleasant 49-year-old female who presents to the office today for weight management consultation. 05/19/2024: BMI 28.32, weight 159.9 begin semaglutide 0.25 mg in office today subcutaneous injection weekly. Will submit for Wegovy at this time, however cannot guarantee coverage, patient aware. Patient was counseled on the importance EATING local, organic food when possible. Patient was educated on clean 15 and dirty dozen. I provided information about reading books called The Food Rules by Catalino Brown and Eat Fat Get Lean by Dr Lawson Akhtar. Self education is important in the journey for weight management. Patient was offered diagnostic testing. We want to measure visceral adiposity, advanced body composition, adverse lipids, fatty acid balance, risk for heart disease and atherosclerosis, markers of inflammation and genetic susceptibility. Patient was counseled on weight management and was advised to lose weight using A. Meal Replacement Products Patient was educated on the replacement products called optifast. This is a good way of taking fixed amount of calories. It has been shown in studies to be ineffective weight management tool. This however has to be coupled with lifestyle intervention as well as laboratory data and EKG monitoring. It is impossible to know how a person will tolerate complete meal replacement. The side effects of meal replacement and weight loss could include syncopal attacks, dizziness, gallstones, potential cholecystectomy, possible heart attack and even . The benefits of meal replacement would be potential weight loss but no guarantees can be made. Meal replacement products are not covered by insurance. Once the patient has bought these products we cannot return them B. Lifestyle management which includes several strategies as below 1. Eat a low carbohydrate good fat good protein diet. Eliminate refined carbohydrates from the diet. Continue blood sugar and sugared beverages. Eat local organic when possible. Cook your own meals. Read food labels. None about healthy snacks. Portion control and food with low glycemic index 2. Exercise regularly. Try to get at least 6000 steps a day. Use a predominant to track activity level. Consider using apps like [employer]ias, Cequenspal, lose it, stick as needed for self-monitoring and weight management. Consider group exercises. Consider hiring a clinical trainer. Regular exercise is chung to sustainable health and prevents as a buffer against weight regain 3. Sleep is most important for healing. Tried to sleep at least 8 hours a night. A good quality sleep needs a sleep ritual with ideal room temperature of around 68. It might help to take a shower and have no electronics in the room and sleep in a very dark room without artificial light. Start her sleep routine and get up early in the morning and go to bed on time 4. Make a social connection. Surround yourself with positive people with positive energy. Connect with friends and family. 5. Get into the habit of meditating and mindfulness while doing everything. 6. Go outside and connect with nature. C. Prescription medications Patient was educated on the use of prescription medications for medical weight loss. This is a growing list and includes phentermine, Topamax,Qsymia, contrave, belviq and saxenda. All prescription medications could have side effects including but not limited to kidney stones seizure disorder cardiac arrhythmias heart attack pancreatitis etc. etc.. Patient was encouraged to read the prescription insert and have coaching with their pharmacist and make an informed decision about taking medication and know that these medications are being prescribed with good intentions and we do not know how a patient would react to her medication. Sudden medications are FDA approved for weight loss and there is also off label use depending on patient's inability to afford medications in an attempt to lose weight D. Behavioral counseling was done to establish a relationship between food and an mood. Patient was provided information about local counseling including the office of Dr. Ruiz in [place] and Dr Navarrete at [place]. We would like to cover regular topics and build on low glycemic eating exercise mindful eating, using yoga and meditation along with deep breathing and connecting with friends and family. E. Patient's current medications were reviewed and opinion was given on medication that can cause weight gain and can be substituted F. Patient was assessed for risk with obesity including and not limiting to atherosclerosis heart disease stroke kidney disease, restrictive lung disease, irritable bowel syndrome and overall mortality. Risk of developing prediabetes diabetes and metabolic syndrome was discussed G. Therapeutic plan: We have decided to make therapeutic plan which would include choosing wisely on calories restricting portion getting active, tracking weight, getting good quality sleep and working on time management H. Patient will follow up in 4 weeks for weight management Total time spent today was 60 minutes of which greater than 50% was spent on coordinating and counseling All questions have been answered to patient's satisfaction. Patient verbalized understanding of diagnosis and treatments explained. Advised to call sooner prior to next visit it any questions/concerns arise. Case discussed with Karina LOVELACE who reviewed the assessment and plan. Chart, medications, labs, vital signs reviewed. Dictation was accomplished with the use of [employer] voice recognition software, which is prone to medical misidentifications and grammatical errors. This are unintentional and the practitioner does try to identify and correct these, but some could still be present. Please do not hesitate to contact practitioner for clarification. 06/16/2024 Overweight (ICD-10 - E66.3) Jo is a pleasant 49-year-old female who presents to the office today for weight management consultation. 05/19/2024: BMI 28.32, weight 159.9 begin semaglutide 0.25 mg in office today subcutaneous injection weekly. Will submit for Wegovy at this time, however cannot guarantee coverage, patient aware. 06/16/2024: BMI 27.79, weight 156.9.. Continue Wegovy 0.25 mg at this time subcutaneous injection weekly. Congratulated on her efforts, congratulated on her progress. Continue protein intake and exercise increase Patient is here for weight management followup. We focused on significance of healthy lifestyle changes. We talked about need to track steps, work on portion control, read food labels, get adequate sleep, give adequate rest of the body, meditate, frequent nutritious meals including vegetables and healthy choices of meat and elimination of refined carbohydrates. We also talked about mindfulness and mindful eating. Particular focus was on lifestyle Total time spent was 30 minutes with greater than 50% spent on counseling and coordinating care All questions have been answered to patient's satisfaction. Patient verbalized understanding of diagnosis and treatments explained. Advised to call sooner prior to next visit it any questions/concerns arise. Case discussed with Karina LOVELACE who reviewed the assessment and plan. Chart, medications, labs, vital signs reviewed. Dictation was accomplished with the use of [employer] voice recognition software, which is prone to medical misidentifications and grammatical errors. This are unintentional and the practitioner does try to identify and correct these, but some could still be present. Please do not hesitate to contact practitioner for clarification. 06/16/2024 BMI 27.0-27.9,adult (ICD-10 - Z68.27) Jo is a pleasant 49-year-old female who presents to the office today for weight management consultation. 05/19/2024: BMI 28.32, weight 159.9 begin semaglutide 0.25 mg in office today subcutaneous injection weekly. Will submit for Wegovy at this time, however cannot guarantee coverage, patient aware. 06/16/2024: BMI 27.79, weight 156.9.. Continue Wegovy 0.25 mg at this time subcutaneous injection weekly. Congratulated on her efforts, congratulated on her progress. Continue protein intake and exercise increase Patient is here for weight management followup. We focused on significance of healthy lifestyle changes. We talked about need to track steps, work on portion control, read food labels, get adequate sleep, give adequate rest of the body, meditate, frequent nutritious meals including vegetables and healthy choices of meat and elimination of refined carbohydrates. We also talked about mindfulness and mindful eating. Particular focus was on lifestyle Total time spent was 30 minutes with greater than 50% spent on counseling and coordinating care All questions have been answered to patient's satisfaction. Patient verbalized understanding of diagnosis and treatments explained. Advised to call sooner prior to next visit it any questions/concerns arise. Case discussed with Karina LOVELACE who reviewed the assessment and plan. Chart, medications, labs, vital signs reviewed. Dictation was accomplished with the use of [employer] voice recognition software, which is prone to medical misidentifications and grammatical errors. This are unintentional and the practitioner does try to identify and correct these, but some could still be present. Please do not hesitate to contact practitioner for clarification. 07/14/2024 Overweight (ICD-10 - E66.3) Jo is a pleasant 49-year-old female who presents to the office today for weight management consultation. 05/19/2024: BMI 28.32, weight 159.9 begin semaglutide 0.25 mg in office today subcutaneous injection weekly. Will submit for Wegovy at this time, however cannot guarantee coverage, patient aware. 06/16/2024: BMI 27.79, weight 156.9.. Continue Wegovy 0.25 mg at this time subcutaneous injection weekly. Congratulated on her efforts, congratulated on her progress. Continue protein intake and exercise increase 07/14/2024: BMI 27.65, weight 156.1 increasing Wegovy to 0.5 mg at this time and encourage patient to discontinue the use of Gatorade and Gatorade 0. Encourage patient to increase her protein intake and exercise..Checking patient's kidney function due to over consumption of sodium Patient is here for weight management followup. We focused on significance of healthy lifestyle changes. We talked about need to track steps, work on portion control, read food labels, get adequate sleep, give adequate rest of the body, meditate, frequent nutritious meals including vegetables and healthy choices of meat and elimination of refined carbohydrates. We also talked about mindfulness and mindful eating. Particular focus was on lifestyle Total time spent was 30 minutes with greater than 50% spent on counseling and coordinating care All questions have been answered to patient's satisfaction. Patient verbalized understanding of diagnosis and treatments explained. Advised to call sooner prior to next visit it any questions/concerns arise. Case discussed with Karina LOVELACE who reviewed the assessment and plan. Chart, medications, labs, vital signs reviewed. Dictation was accomplished with the use of [employer] voice recognition software, which is prone to medical misidentifications and grammatical errors. This are unintentional and the practitioner does try to identify and correct these, but some could still be present. Please do not hesitate to contact practitioner for clarification. 07/14/2024 BMI 27.0-27.9,adult (ICD-10 - Z68.27) Jo is a pleasant 49-year-old female who presents to the office today for weight management consultation. 05/19/2024: BMI 28.32, weight 159.9 begin semaglutide 0.25 mg in office today subcutaneous injection weekly. Will submit for Wegovy at this time, however cannot guarantee coverage, patient aware. 06/16/2024: BMI 27.79, weight 156.9.. Continue Wegovy 0.25 mg at this time subcutaneous injection weekly. Congratulated on her efforts, congratulated on her progress. Continue protein intake and exercise increase 07/14/2024: BMI 27.65, weight 156.1 increasing Wegovy to 0.5 mg at this time and encourage patient to discontinue the use of Gatorade and Gatorade 0. Encourage patient to increase her protein intake and exercise..Checking patient's kidney function due to over consumption of sodium Patient is here for weight management followup. We focused on significance of healthy lifestyle changes. We talked about need to track steps, work on portion control, read food labels, get adequate sleep, give adequate rest of the body, meditate, frequent nutritious meals including vegetables and healthy choices of meat and elimination of refined carbohydrates. We also talked about mindfulness and mindful eating. Particular focus was on lifestyle Total time spent was 30 minutes with greater than 50% spent on counseling and coordinating care All questions have been answered to patient's satisfaction. Patient verbalized understanding of diagnosis and treatments explained. Advised to call sooner prior to next visit it any questions/concerns arise. Case discussed with Karina LOVELACE who reviewed the assessment and plan. Chart, medications, labs, vital signs reviewed. Dictation was accomplished with the use of [employer] voice recognition software, which is prone to medical misidentifications and grammatical errors. This are unintentional and the practitioner does try to identify and correct these, but some could still be present. Please do not hesitate to contact practitioner for clarification. 07/14/2024 Dietary counseling (ICD-10 - Z71.3) Jo is a pleasant 49-year-old female who presents to the office today for weight management consultation. 05/19/2024: BMI 28.32, weight 159.9 begin semaglutide 0.25 mg in office today subcutaneous injection weekly. Will submit for Wegovy at this time, however cannot guarantee coverage, patient aware. 06/16/2024: BMI 27.79, weight 156.9.. Continue Wegovy 0.25 mg at this time subcutaneous injection weekly. Congratulated on her efforts, congratulated on her progress. Continue protein intake and exercise increase 07/14/2024: BMI 27.65, weight 156.1 increasing Wegovy to 0.5 mg at this time and encourage patient to discontinue the use of Gatorade and Gatorade 0. Encourage patient to increase her protein intake and exercise..Checking patient's kidney function due to over consumption of sodium Patient is here for weight management followup. We focused on significance of healthy lifestyle changes. We talked about need to track steps, work on portion control, read food labels, get adequate sleep, give adequate rest of the body, meditate, frequent nutritious meals including vegetables and healthy choices of meat and elimination of refined carbohydrates. We also talked about mindfulness and mindful eating. Particular focus was on lifestyle Total time spent was 30 minutes with greater than 50% spent on counseling and coordinating care All questions have been answered to patient's satisfaction. Patient verbalized understanding of diagnosis and treatments explained. Advised to call sooner prior to next visit it any questions/concerns arise. Case discussed with Karina LOVELACE who reviewed the assessment and plan. Chart, medications, labs, vital signs reviewed. Dictation was accomplished with the use of Contextors voice recognition software, which is prone to medical misidentifications and grammatical errors. This are unintentional and the practitioner does try to identify and correct these, but some could still be present. Please do not hesitate to contact practitioner for clarification. 06/16/2024 Intracranial hypertension (ICD-10 - G93.2) Jo is a pleasant 49-year-old female who presents to the office today for weight management consultation. 05/19/2024: BMI 28.32, weight 159.9 begin semaglutide 0.25 mg in office today subcutaneous injection weekly. Will submit for Wegovy at this time, however cannot guarantee coverage, patient aware. 06/16/2024: BMI 27.79, weight 156.9.. Continue Wegovy 0.25 mg at this time subcutaneous injection weekly. Congratulated on her efforts, congratulated on her progress. Continue protein intake and exercise increase Patient is here for weight management followup. We focused on significance of healthy lifestyle changes. We talked about need to track steps, work on portion control, read food labels, get adequate sleep, give adequate rest of the body, meditate, frequent nutritious meals including vegetables and healthy choices of meat and elimination of refined carbohydrates. We also talked about mindfulness and mindful eating. Particular focus was on lifestyle Total time spent was 30 minutes with greater than 50% spent on counseling and coordinating care All questions have been answered to patient's satisfaction. Patient verbalized understanding of diagnosis and treatments explained. Advised to call sooner prior to next visit it any questions/concerns arise. Case discussed with Karina LOVELACE who reviewed the assessment and plan. Chart, medications, labs, vital signs reviewed. Dictation was accomplished with the use of Contextors voice recognition software, which is prone to medical misidentifications and grammatical errors. This are unintentional and the practitioner does try to identify and correct these, but some could still be present. Please do not hesitate to contact practitioner for clarification. 05/19/2024 Intracranial hypertension (ICD-10 - G93.2) Jo is a pleasant 49-year-old female who presents to the office today for weight management consultation. 05/19/2024: BMI 28.32, weight 159.9 begin semaglutide 0.25 mg in office today subcutaneous injection weekly. Will submit for Wegovy at this time, however cannot guarantee coverage, patient aware. Patient was counseled on the importance EATING local, organic food when possible. Patient was educated on clean 15 and dirty dozen. I provided information about reading books called The Food Rules by Catalino Brown and Eat Fat Get Lean by Dr Lawson Akhtar. Self education is important in the journey for weight management. Patient was offered diagnostic testing. We want to measure visceral adiposity, advanced body composition, adverse lipids, fatty acid balance, risk for heart disease and atherosclerosis, markers of inflammation and genetic susceptibility. Patient was counseled on weight management and was advised to lose weight using A. Meal Replacement Products Patient was educated on the replacement products called optifast. This is a good way of taking fixed amount of calories. It has been shown in studies to be ineffective weight management tool. This however has to be coupled with lifestyle intervention as well as laboratory data and EKG monitoring. It is impossible to know how a person will tolerate complete meal replacement. The side effects of meal replacement and weight loss could include syncopal attacks, dizziness, gallstones, potential cholecystectomy, possible heart attack and even . The benefits of meal replacement would be potential weight loss but no guarantees can be made. Meal replacement products are not covered by insurance. Once the patient has bought these products we cannot return them B. Lifestyle management which includes several strategies as below 1. Eat a low carbohydrate good fat good protein diet. Eliminate refined carbohydrates from the diet. Continue blood sugar and sugared beverages. Eat local organic when possible. Cook your own meals. Read food labels. None about healthy snacks. Portion control and food with low glycemic index 2. Exercise regularly. Try to get at least 6000 steps a day. Use a predominant to track activity level. Consider using apps like [employer], myfitnesspal, lose it, stick as needed for self-monitoring and weight management. Consider group exercises. Consider hiring a clinical trainer. Regular exercise is chung to sustainable health and prevents as a buffer against weight regain 3. Sleep is most important for healing. Tried to sleep at least 8 hours a night. A good quality sleep needs a sleep ritual with ideal room temperature of around 68. It might help to take a shower and have no electronics in the room and sleep in a very dark room without artificial light. Start her sleep routine and get up early in the morning and go to bed on time 4. Make a social connection. Surround yourself with positive people with positive energy. Connect with friends and family. 5. Get into the habit of meditating and mindfulness while doing everything. 6. Go outside and connect with nature. C. Prescription medications Patient was educated on the use of prescription medications for medical weight loss. This is a growing list and includes phentermine, Topamax,Qsymia, contrave, belviq and saxenda. All prescription medications could have side effects including but not limited to kidney stones seizure disorder cardiac arrhythmias heart attack pancreatitis etc. etc.. Patient was encouraged to read the prescription insert and have coaching with their pharmacist and make an informed decision about taking medication and know that these medications are being prescribed with good intentions and we do not know how a patient would react to her medication. Sudden medications are FDA approved for weight loss and there is also off label use depending on patient's inability to afford medications in an attempt to lose weight D. Behavioral counseling was done to establish a relationship between food and an mood. Patient was provided information about local counseling including the office of Dr. Ruiz in [place] and Dr Navarrete at [place]. We would like to cover regular topics and build on low glycemic eating exercise mindful eating, using yoga and meditation along with deep breathing and connecting with friends and family. E. Patient's current medications were reviewed and opinion was given on medication that can cause weight gain and can be substituted F. Patient was assessed for risk with obesity including and not limiting to atherosclerosis heart disease stroke kidney disease, restrictive lung disease, irritable bowel syndrome and overall mortality. Risk of developing prediabetes diabetes and metabolic syndrome was discussed G. Therapeutic plan: We have decided to make therapeutic plan which would include choosing wisely on calories restricting portion getting active, tracking weight, getting good quality sleep and working on time management H. Patient will follow up in 4 weeks for weight management Total time spent today was 60 minutes of which greater than 50% was spent on coordinating and counseling All questions have been answered to patient's satisfaction. Patient verbalized understanding of diagnosis and treatments explained. Advised to call sooner prior to next visit it any questions/concerns arise. Case discussed with Karina LOVELACE who reviewed the assessment and plan. Chart, medications, labs, vital signs reviewed. Dictation was accomplished with the use of Contextors voice recognition software, which is prone to medical misidentifications and grammatical errors. This are unintentional and the practitioner does try to identify and correct these, but some could still be present. Please do not hesitate to contact practitioner for clarification. 07/14/2024 Intracranial hypertension (ICD-10 - G93.2) Jo is a pleasant 49-year-old female who presents to the office today for weight management consultation. 05/19/2024: BMI 28.32, weight 159.9 begin semaglutide 0.25 mg in office today subcutaneous injection weekly. Will submit for Wegovy at this time, however cannot guarantee coverage, patient aware. 06/16/2024: BMI 27.79, weight 156.9.. Continue Wegovy 0.25 mg at this time subcutaneous injection weekly. Congratulated on her efforts, congratulated on her progress. Continue protein intake and exercise increase 07/14/2024: BMI 27.65, weight 156.1 increasing Wegovy to 0.5 mg at this time and encourage patient to discontinue the use of Gatorade and Gatorade 0. Encourage patient to increase her protein intake and exercise..Checking patient's kidney function due to over consumption of sodium Patient is here for weight management followup. We focused on significance of healthy lifestyle changes. We talked about need to track steps, work on portion control, read food labels, get adequate sleep, give adequate rest of the body, meditate, frequent nutritious meals including vegetables and healthy choices of meat and elimination of refined carbohydrates. We also talked about mindfulness and mindful eating. Particular focus was on lifestyle Total time spent was 30 minutes with greater than 50% spent on counseling and coordinating care All questions have been answered to patient's satisfaction. Patient verbalized understanding of diagnosis and treatments explained. Advised to call sooner prior to next visit it any questions/concerns arise. Case discussed with Karina LOVELACE who reviewed the assessment and plan. Chart, medications, labs, vital signs reviewed. Dictation was accomplished with the use of [employer] voice recognition software, which is prone to medical misidentifications and grammatical errors. This are unintentional and the practitioner does try to identify and correct these, but some could still be present. Please do not hesitate to contact practitioner for clarification. Plan Of Treatment Pending Test Test Name Order Date COMPREHENSIVE METABOLIC PANEL 07/14/2024 Next Appt Details Provider Name:COURTNEY RIOS, 11:00:00 AM, [address], [place], [address], Insurance Providers Payer Name Payer Address Payer Phone Subscriber Number Group Number Insured Name Patient Relationship to Insured Coverage Start Date Coverage End Date [facility] [address] [place] [address] [phone] [id number] Jo Mcknight Self - patient is the insured Medications Administered Medication Instructions Date of Administration Dosage Notes Semaglutide 05/19/2024 0.25 mg Medical (General) History Medical History History ICD Code weight gain/loss headaches anxiety Intracranial hypotension, spontaneous G9 6.811 Surgical History Surgery Date(Month/Year) 09/04/2006 08/13/2009 Hospitalization History Reason Date(Month/Year) 12/13/2021 09/04/2006
== END 2024-08-10 09:49 | disposition home or self-care (01) ==
LOC: HO.HBS 09:48
PROVIDERS: PCP Internal Medicine; Visit Provider Physician Assistant Surgical
DX: Z71.3 Dietary counseling and surveillance (principal); Z90.3 Acquired absence of stomach [part of]; Z98.84 Bariatric surgery status
CPT/HCPCS: 98967

== ENCOUNTER → 2024-08-10 09:30 | Outpatient (BNVA) | payer BC, SELFPAY | PROVIDERS: PCP Internal Medicine; Visit Provider Physician Assistant Surgical | DX: E66.9 Obesity, unspecified (principal); Z68.24 Body mass index [BMI] 24.0-24.9, adult; Z90.3 Acquired absence of stomach [part of]; Z98.84 Bariatric surgery status | CPT/HCPCS: 98967 ==

== ENCOUNTER 2024-10-26 14:34 | Outpatient (AMB) | payer BC, SELFPAY ==
--- NOTE | 2024-10-26 14:46 | MHC.OFFVISWM ---
VS Expanded 10/26/24 15:02 BP 100/60 Blood Pressure Location Rt brachial Blood Pressure Position Sitting Pulse 58 Pulse Source Pulse Oximeter Temp 97.4 F Temperature Source Temporal Artery Scan Pulse Oximetry 100 Oxygen Delivery Method Room Air Height 5 ft 4 in Weight 149 lb BMI 25.6 Body Fat % 31 Body Fat Mass 46 Fat Free Mass 102.8 Visceral Fat Rating 6 Body Water % 49 Body Water Mass 73 Muscle Mass/Score 97.4 Basal Metabolic Rate/Score 1,386 Intake Visit Reasons: OV PO SWL 12/13/21 Allergies vancomycin Allergy (Severe, Verified 10/26/24 15:05) Rash tetracycline Adverse Reaction (Intermediate, Verified 10/26/24 15:05) told to avoid due to intercranial hypertension HPI Comments Details: This?a?49?yo female who is s/p LSG without hiatal hernia repair on?12/13/[address] Ryan. Presents for 2 year 10 month post op visit. She additionally underwent panniculectomy by Dr. Forman on 07/09/2023. Weight today is 149 pounds, with a BMI of 25.6. There has been a 75.4 pound weight loss,(initial weight 224.4 pounds) since starting the program on 07/18/21 reflecting a 33.6% total body weight loss and a weight loss of 40.6 pounds since surgery (operative weight 189.6 pounds) reflecting a 21.4% TBWL since surgery. She feels as though she is in the best shape of her life. 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 Taking fiber gummy She states things were going very well, previously recovering from R achilles tendon injury, she had recovered but re-injured her ankle after joining a new gym. There was an equipment malfunction where screws came off the pedal. She has been doing home physical therapy exercises that she learned from her previous injury and is showing some improvement. She continues to have pain of the right ankle. She intends to follow up with new [facility] as this is who she has seen in the past. Additionally, she is having difficulty with excess skin of the thighs. She describes a discomfort of the medial thighs bilaterally with walking as they rub together. She has additionally noticed some redness. She has to wear clothing that access a barrier between her thigh in her groin. Additionally she has difficulty with clothing fitting appropriately and frequently has to wash the area because it hurts. Present meal plan includes: ascent nutrition shake 1/2 scoop in 8 oz unsweetened [place] milk, 530-730, 8-10, 12-2 (25 gm per scoop) meal w 6 forks protein and 6 forks veg 60 oz additional water daily Exercise daily: cardio 500-600 clarisa daily weights PFSH Medical History Sleep apnea Pseudotumor cerebri Frequent headaches History of lumbar puncture Low back pain Constipation GERD (gastroesophageal reflux disease) Insomnia Anxiety History of panic attacks PTSD (post-traumatic stress disorder) Depression Surgical History S/P laparoscopic sleeve gastrectomy Hx of colonoscopy Hx of laparoscopy H/O section Social History Household Members Other:: minor children (3) Are you a 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 We will have her follow-up in the office as scheduled. With regards to the excess skin of her thighs, we will continue to monitor closely, should any rash develop consideration for topical antifungal. Consideration for medically necessary skin removal surgery in the future.
[2024-10-26 15:02] VITALS: BP 100/60; PULSE 58; TEMP 36.3; O2SAT 100; BMI 25.6
--- OUTSIDE RECORDS SUMMARY | 2024-10-26 16:20 | XMS_ITS ---
Author Name [facility] Organization Unknown Problems Problem Status Onset Date Problem Type Date of Resoluti on Source Sebaceous cyst active EncounterDiagnosisAct CT_[id number] Encounters Encounter Type Encounter Reason Primary Diagnosis Location Date Ambulatory Procedure Sebaceous cyst [facility] 0 05/21/2024 Care Team Organization Name Specialty Phone Email Start Date End Da te [facility] Primary Care 05/23 [facility] Primary [facility] 05/21
--- OUTSIDE RECORDS SUMMARY | 2024-10-26 16:20 | XMS_ITS | Patient Health Record ---
Author Organization [facility] [address] Address [address] [place] [address] Care Team Providers Care Pediatric Registered Nurse Name Role Phone Mary Olvera Primary Care Provider Unavaillizette e COURTNEY RIOS Unavailable [phone] SAMANTHA MCCALL Unavailable [phone] Allergies Allergen (clinical drug ingredient) Drug/Non Drug Allergy documented on EMR Reaction Allergy Type Onset Date Status tetracycle (uncoded) adverse reaction to interceanial hypertension Allergy Active vancomycin Vancomycin rash Drug Allergy Activ e Results Component Value Reference Range Notes Comp. Metabolic Panel [id number] Reviewed date:07/15/2024 01:06:26 PM Interpretation: Performing Lab:[facility], [address] [facility], [place], Phone - [phone], Director - Dana Notes/Report: Glucose 79 70-99 [...] Notes Start Date End Date Status Wegovy 1.7 MG/0.75ML 0.75 mL Subcutaneou s once a week; Duration: 30 days Active Wegovy 1.7 MG/0.75ML 0.75 mL Subcutaneou s weekly; Duration: 30 days Active Social History Tobacco Use: [...] Status W/U Status Risk Notes Problem Overweight (300195437) Overweight (E66.3) Active confirmed Problem Benign intracranial hypertension (94801132) Intracranial hypertension (G93.2) Active confirmed Vital Signs Heart Rate 58 /min 10/20/2024 Blood pressure diastolic 76 mm Hg 10/20/2024 Oximetry 98 % 10/20/2024 Height 63 in 10/20/2024 Blood pressure systolic 124 mm Hg 10/20/2024 Weight 152.1 lbs 10/20/2024 BMI 26.94 kg/m2 10/20/2024 Encounters Encounter Location Date Provider Diagnosis [facility] [address] [place] [address] 05/19/2024 COURTNEY GABRIEL Overweight E66.3 ; B vita mass index [BMI] 28.0-28.9, adult Z68.28 and Intracranial hypertension G93.[address] [facility] [address] [place] [address] 06/16/2024 COURTNEY GABRIEL Overweight E66.3 ; B VT 27.0-27.9,adult Z68.27 and Intracranial hypertension G93.[address] [facility] [address] [place] [address] 07/14/2024 COURTNEY GABRIEL Overweight E66.3 ; B VT 27.0-27.9,adult Z68.27 ; Dietary counseling Z71.3 and Intracranial hypertension G93.[address] [facility] [address] [place] [address] 08/14/2024 COURTNEY GABRIEL Overweight E66.3 ; B VT 27.0-27.9,adult Z68.27 ; Dietary counseling Z71.3 and Encounter for examination of blood pressure without abnormal findings Z01.[address] [facility] [address] [place] [address] 09/14/2024 COURTNEY GABRIEL Overweight E66.3 ; B VT 27.0-27.9,adult Z68.27 ; Dietary counseling Z71.3 and Encounter for examination of blood pressure without abnormal findings Z01.[address] [facility] [address] [place] [address] 10/20/2024 COURTNEY GABRIEL Overweight E66.3 ; B VT 26.0-26.9,adult Z68.26 ; Dietary counseling Z71.3 and Encounter for examination of blood pressure without abnormal findings Z01.30 [facility] [address] [address] 05/19/2024 COURTNEY GABRIEL [facility] [address] [facility] [address] [place] [address] 05/20/2024 COURTNEY GABRIEL [facility] [address] [place] [address] 06/17/2024 COURTNEY GABRIEL [facility] [address] [place] [address] 09/16/2024 COURTNEY GABRIEL [facility] [address] [place] [address] 10/20/2024 COURTNEY GABRIEL Overweight E66.[address] [facility] [address] [place] [address] 09/16/2024 COURTNEY GABRIEL Assessments Encounter Date Diagnosis (ICD [...] books called The Food Rules by Catalino rBown and Eat Fat Get Lean by Dr [...] track activity level. Consider using apps like [employer], [employer]pal, lose it, stick as needed for self-monitoring and weight management. Consider group exercises. Consider hiring a instructor trainer canine service. Regular exercise is chung to sustainable health [...] including the office of Dr. Ruiz in [place] and Dr Navarrete at [place]. We would like to cover regular topics [...] Dictation was accomplished with the use of Photoblog voice recognition software, which is prone to [...] track activity level. Consider using apps like [employer], [employer], lose it, stick as needed for self-monitoring and weight management. Consider group exercises. Consider hiring a instructor trainer canine service. Regular exercise is chung to sustainable health [...] including the office of Dr. Ruiz in [place] and Dr Navarrete at [address]. We would like to cover regular topics [...] Dictation was accomplished with the use of Photoblog voice recognition software, which is prone to [...] Dictation was accomplished with the use of Photoblog voice recognition software, which is prone to [...] Dictation was accomplished with the use of Photoblog voice recognition software, which is prone to [...] Dictation was accomplished with the use of Photoblog voice recognition software, which is prone to [...] Dictation was accomplished with the use of Photoblog voice recognition software, which is prone to medical misidentifications and grammatical errors. This are unintentional and the practitioner does try to identify and correct these, but some could still be present. Please do not hesitate to contact practitioner for clarification. 08/14/2024 Overweight (ICD-10 - E66.3) Jo is a [...] function due to over consumption of sodium 08/14/2024: BMI 27.06, weight 152.8 increasing patient's dose of Wegovy to 1 mg at this time, she is doing exceptionally well, congratulated on her results. Increasing patient's water, protein, exercise..CMP conducted on 07/15/2024 was within normal limits Patient is here for weight management followup. [...] Dictation was accomplished with the use of Photoblog voice recognition software, which is prone to medical misidentifications and grammatical errors. This are unintentional and the practitioner does try to identify and correct these, but some could still be present. Please do not hesitate to contact practitioner for clarification. 08/14/2024 BMI 27.0-27.9,adult (ICD-10 - Z68.27) Jo is [...] function due to over consumption of sodium 08/14/2024: BMI 27.06, weight 152.8 increasing patient's dose of Wegovy to 1 mg at this time, she is doing exceptionally well, congratulated on her results. Increasing patient's water, protein, exercise..CMP conducted on 07/15/2024 was within normal limits Patient is here for weight management followup. [...] Dictation was accomplished with the use of Photoblog voice recognition software, which is prone to medical misidentifications and grammatical errors. This are unintentional and the practitioner does try to identify and correct these, but some could still be present. Please do not hesitate to contact practitioner for clarification. 09/14/2024 Overweight (ICD-10 - E66.3) Jo is a [...] function due to over consumption of sodium 08/14/2024: BMI 27.06, weight 152.8 increasing patient's dose of Wegovy to 1 mg at this time, she is doing exceptionally well, congratulated on her results. Increasing patient's water, protein, exercise..CMP conducted on 07/15/2024 was within normal limits 09/14/2024: BMI 27.14, weight 153.2. Increasing patient's dose of Wegovy to 1.7 mg at this time. Advised patient to increase her protein, cardio and water intake. Patient is here for weight management followup. [...] Dictation was accomplished with the use of Photoblog voice recognition software, which is prone to medical misidentifications and grammatical errors. This are unintentional and the practitioner does try to identify and correct these, but some could still be present. Please do not hesitate to contact practitioner for clarification. 10/20/2024 Overweight (ICD-10 - E66.3) Jo is a [...] function due to over consumption of sodium 08/14/2024: BMI 27.06, weight 152.8 increasing patient's dose of Wegovy to 1 mg at this time, she is doing exceptionally well, congratulated on her results. Increasing patient's water, protein, exercise..CMP conducted on 07/15/2024 was within normal limits 09/14/2024: BMI 27.14, weight 153.2. Increasing patient's dose of Wegovy to 1.7 mg at this time. Advised patient to increase her protein, cardio and water intake. 10/20/2024: BMI 26.94, weight 152.1 continue Wegovy 1.7 mg. Congratulated on increasing her muscle mass. Patient is here for weight management followup. [...] Dictation was accomplished with the use of Photoblog voice recognition software, which is prone to medical misidentifications and grammatical errors. This are unintentional and the practitioner does try to identify and correct these, but some could still be present. Please do not hesitate to contact practitioner for clarification. 10/20/2024 BMI 26.0-26.9,adult (ICD-10 - Z68.26) Jo is a pleasant 49-year-old female who [...] function due to over consumption of sodium 08/14/2024: BMI 27.06, weight 152.8 increasing patient's dose of Wegovy to 1 mg at this time, she is doing exceptionally well, congratulated on her results. Increasing patient's water, protein, exercise..CMP conducted on 07/15/2024 was within normal limits 09/14/2024: BMI 27.14, weight 153.2. Increasing patient's dose of Wegovy to 1.7 mg at this time. Advised patient to increase her protein, cardio and water intake. 10/20/2024: BMI 26.94, weight 152.1 continue Wegovy 1.7 mg. Congratulated on increasing her muscle mass. Patient is here for weight management followup. [...] Dictation was accomplished with the use of Photoblog voice recognition software, which is prone to medical misidentifications and grammatical errors. This are unintentional and the practitioner does try to identify and correct these, but some could still be present. Please do not hesitate to contact practitioner for clarification. 10/20/2024 Overweight (ICD-10 - E66.3) 10/20/2024 Dietary counseling (ICD-10 - Z71.3) Jo is [...] function due to over consumption of sodium 08/14/2024: BMI 27.06, weight 152.8 increasing patient's dose of Wegovy to 1 mg at this time, she is doing exceptionally well, congratulated on her results. Increasing patient's water, protein, exercise..CMP conducted on 07/15/2024 was within normal limits 09/14/2024: BMI 27.14, weight 153.2. Increasing patient's dose of Wegovy to 1.7 mg at this time. Advised patient to increase her protein, cardio and water intake. 10/20/2024: BMI 26.94, weight 152.1 continue Wegovy 1.7 mg. Congratulated on increasing her muscle mass. Patient is here for weight management followup. [...] Dictation was accomplished with the use of Photoblog voice recognition software, which is prone to medical misidentifications and grammatical errors. This are unintentional and the practitioner does try to identify and correct these, but some could still be present. Please do not hesitate to contact practitioner for clarification. 09/14/2024 BMI 27.0-27.9,adult (ICD-10 - Z68.27) Jo is [...] function due to over consumption of sodium 08/14/2024: BMI 27.06, weight 152.8 increasing patient's dose of Wegovy to 1 mg at this time, she is doing exceptionally well, congratulated on her results. Increasing patient's water, protein, exercise..CMP conducted on 07/15/2024 was within normal limits 09/14/2024: BMI 27.14, weight 153.2. Increasing patient's dose of Wegovy to 1.7 mg at this time. Advised patient to increase her protein, cardio and water intake. Patient is here for weight management followup. [...] Dictation was accomplished with the use of Photoblog voice recognition software, which is prone to medical misidentifications and grammatical errors. This are unintentional and the practitioner does try to identify and correct these, but some could still be present. Please do not hesitate to contact practitioner for clarification. 08/14/2024 Dietary counseling (ICD-10 - Z71.3) Jo is [...] function due to over consumption of sodium 08/14/2024: BMI 27.06, weight 152.8 increasing patient's dose of Wegovy to 1 mg at this time, she is doing exceptionally well, congratulated on her results. Increasing patient's water, protein, exercise..CMP conducted on 07/15/2024 was within normal limits Patient is here for weight management followup. [...] Dictation was accomplished with the use of Photoblog voice recognition software, which is prone to [...] Dictation was accomplished with the use of Photoblog voice recognition software, which is prone to [...] Dictation was accomplished with the use of Photoblog voice recognition software, which is prone to [...] track activity level. Consider using apps like Jeeves, [employer]pal, lose it, stick as needed for self-monitoring and weight management. Consider group exercises. Consider hiring a instructor trainer canine service. Regular exercise is chung to sustainable health [...] including the office of Dr. Ruiz in [place] and Dr Navarrete at [address]. We would like to cover regular topics [...] Dictation was accomplished with the use of Photoblog voice recognition software, which is prone to [...] Dictation was accomplished with the use of Photoblog voice recognition software, which is prone to medical misidentifications and grammatical errors. This are unintentional and the practitioner does try to identify and correct these, but some could still be present. Please do not hesitate to contact practitioner for clarification. 08/14/2024 Encounter for examination of blood pressure without abnormal findings (ICD-10 - Z01.30) Jo is a pleasant 49-year-old female who [...] function due to over consumption of sodium 08/14/2024: BMI 27.06, weight 152.8 increasing patient's dose of Wegovy to 1 mg at this time, she is doing exceptionally well, congratulated on her results. Increasing patient's water, protein, exercise..CMP conducted on 07/15/2024 was within normal limits Patient is here for weight management followup. [...] Dictation was accomplished with the use of Photoblog voice recognition software, which is prone to medical misidentifications and grammatical errors. This are unintentional and the practitioner does try to identify and correct these, but some could still be present. Please do not hesitate to contact practitioner for clarification. 09/14/2024 Dietary counseling (ICD-10 - Z71.3) Jo is [...] function due to over consumption of sodium 08/14/2024: BMI 27.06, weight 152.8 increasing patient's dose of Wegovy to 1 mg at this time, she is doing exceptionally well, congratulated on her results. Increasing patient's water, protein, exercise..CMP conducted on 07/15/2024 was within normal limits 09/14/2024: BMI 27.14, weight 153.2. Increasing patient's dose of Wegovy to 1.7 mg at this time. Advised patient to increase her protein, cardio and water intake. Patient is here for weight management followup. [...] Dictation was accomplished with the use of Photoblog voice recognition software, which is prone to medical misidentifications and grammatical errors. This are unintentional and the practitioner does try to identify and correct these, but some could still be present. Please do not hesitate to contact practitioner for clarification. 10/20/2024 Encounter for examination of blood pressure without abnormal findings (ICD-10 - Z01.30) Jo is a pleasant 49-year-old female who [...] function due to over consumption of sodium 08/14/2024: BMI 27.06, weight 152.8 increasing patient's dose of Wegovy to 1 mg at this time, she is doing exceptionally well, congratulated on her results. Increasing patient's water, protein, exercise..CMP conducted on 07/15/2024 was within normal limits 09/14/2024: BMI 27.14, weight 153.2. Increasing patient's dose of Wegovy to 1.7 mg at this time. Advised patient to increase her protein, cardio and water intake. 10/20/2024: BMI 26.94, weight 152.1 continue Wegovy 1.7 mg. Congratulated on increasing her muscle mass. Patient is here for weight management followup. [...] Dictation was accomplished with the use of Photoblog voice recognition software, which is prone to medical misidentifications and grammatical errors. This are unintentional and the practitioner does try to identify and correct these, but some could still be present. Please do not hesitate to contact practitioner for clarification. 09/14/2024 Encounter for examination of blood pressure without abnormal findings (ICD-10 - Z01.30) Jo is a pleasant 49-year-old female who [...] function due to over consumption of sodium 08/14/2024: BMI 27.06, weight 152.8 increasing patient's dose of Wegovy to 1 mg at this time, she is doing exceptionally well, congratulated on her results. Increasing patient's water, protein, exercise..CMP conducted on 07/15/2024 was within normal limits 09/14/2024: BMI 27.14, weight 153.2. Increasing patient's dose of Wegovy to 1.7 mg at this time. Advised patient to increase her protein, cardio and water intake. Patient is here for weight management followup. [...] Dictation was accomplished with the use of Photoblog voice recognition software, which is prone to medical misidentifications and grammatical errors. This are unintentional and the practitioner does try to identify and correct these, but some could still be present. Please do not hesitate to contact practitioner for clarification. Plan Of Treatment Pending Test Test Name Order Date COMPREHENSIVE METABOLIC PANEL 07/14/2024 Next Appt Details Provider Name:COURTNEY RIOS, 02:30:00 PM, [address], [place], [address], Insurance Providers Payer Name Payer Address Payer Phone Subscriber Number Group Number Insured Name Patient Relationship to Insured Coverage Start Date Coverage End Date [facility] [address] [place] [address] [phone] [id number] Jo Mcknight Self - patient is the insured Medications Administered Medication Instructions Date of Administration Dosage Notes Semaglutide 05/19/2024 0.25 mg Medical (General) History Medical History History ICD Code weight gain/loss headaches anxiety Intracranial hypotension, spontaneous G9 6.811 Surgical History Surgery Date(Month/Year) 09/04/2006 08/13/2009 Hospitalization History Reason Date(Month/Year) 12/13/2021 09/04/2006
--- OUTSIDE RECORDS SUMMARY | 2024-10-26 16:20 | XMS_ITS | Clinical Summary ---
Author Organization [facility] Address [address] [place] [address] Care Team Providers Care Dishwasher Name Role Phone Unavailable Primary Care Provider Unavailabl e Social History Tobacco Use Types Packs/Day Years Used Date Smoking Tobacco: Never Assessed Comments Unknown Sex and Gender Information Value Date Recorded Sex Assigned at Not on file Legal Sex Female 7:35 AM EDT Gender Identity Not on file Sexual Orientation Not on file Plan of Treatment Health Maintenance Due Date Last Done Comments Hepatitis C Screening 1976 Pap Smear 1992 DTaP/Tdap/Td (1 - Tdap) 1994 Hep B (1 of 3 - 19+ 3-dose series) 05/05/1995 Mammogram/Breast Imaging 2016 COVID-19 Vaccine (2023-2 5 season) 2023 Influenza (#1) 2024 Zoster (Shingrix) (1 of 2) 2026 HPV Vaccine (No Doses Required) Completed Hep A Aged Out No longer eligi ble based on patient's age to complete this topic Hib Aged Out No longer eligi ble based on patient's age to complete this topic Meningococcal ACWY Aged Out No longer eligible based on patient's age to complete this topic Pneumococcal Aged Out No longer eligi ble based on patient's age to complete this topic
--- OUTSIDE RECORDS SUMMARY | 2024-10-26 16:21 | XMS_ITS | Clinical Summary ---
Author Organization [facility] Address [address] [address] Phone Care Team Providers Care House Steward/Stewardess Name Role Phone Mary Olvera MD Primary Care Provider Allergies Active Allergy Reactions Criticality Noted Date Comments Lidocaine 07/18/2021 Tetracycline 07/18/2021 Vancomycin Hives 07/18/2021 Medications LORazepam (ATIVAN) 1 MG tablet TAKE 1 TABLET BY MOUTH FOUR TIMES DAILY NEEDED 2 Active valACYclovir (VALTREX) 1000 MG tablet TAKE 2 TABLETS BY MOUTH EVERY 12 HOURS FOR 1 DAY NEEDED FOR HERPES FLARE UP 2 Active levonorgestreL (MIRENA) 20 mcg/24 hours (7 yrs) 52 mg intrauterine device Mirena 20 mcg/24 hours (7 yrs) 52 mg intrauterine device Take by intrauterine route. Active Medication-Free Text CBD oil with melatonin/THC Active TURMERIC ORAL Take by mouth. A ctive amoxicillin-clav ulanate (AUGMENTIN) 875-125 mg per tablet TAKE ONE TABLET BY MOUTH TWICE DAILY FOR 10 DAYS 2 Active Active Problems Problem Noted Date Diagnosed Date ANALI (obstructive sleep apnea) 08/21/2021 Daytime somnolence 07/18/2021 Preoperative examination 07/18/2021 Class 2 severe obesity due t o excess calories with serious comorbidity and body mass index (BMI) of 36.0 to 36.9 in adult 07/18/2021 Assessment & Plan (09/11/2021 2:43 PM EDT): This is a 46-year-old lady who is interested in laparoscopic sleeve gastrectomy for weight management. Patient was found to have sleep apnea and is currently awaiting titration of her CPAP machine. She recently discovered that her insurance company requires her to have surgery at a [facility] and given that we are just starting our bariatric program we are not a center of excellence and the patient cannot have surgery here. Patient is currently looking for a program that she feels comfortable transferring her records to in order to undergo laparoscopic sleeve gastrectomy. Patient is done extremely well with weight loss and has lost 13.6 pounds of the 22 pounds she needs to lose for 10% weight loss prior to surgery. She has an additional 8.4 pounds to lose. Patient is doing extremely well following the eating plan and exercise plan. She should continue current exercise plan of exercising walking up an incline for 45 to 70 minutes 7 days weekly. She should continue current water intake and continue medications as reviewed. She should continue current eating plan. I will continue to care for this patient until she finds a program to transfer her records to so she can undergo laparoscopic sleeve gastrectomy. The patient has not completed any of the blood work chest x-ray EKG or H. pylori studies. She will plan to have the studies done in addition to her chest x-ray and EKG. Patient has been cleared by [facility] to undergo weight loss surgery. She will continue to follow-up with us in this program and so she has found a program to transfer to. I will schedule another appointment with her in the office in 4 weeks timeframe and she may cancel that appointment if she finds another program to transfer prior to that time. Patient is not stable is considered obese. Assessment & Plan (07/18/2021 2:16 PM EDT): This is a 46-year-old lady who has had pseudotumor cerebri and significant symptoms with intermittent blindness since age 23. This is happening more frequently and her vision has been decreasing over the course of time and it is at its worst currently. The treatment for pseudotumor cerebri is weight loss. The patient has tried multiple methods of weight loss and has been unsuccessful. Patient recently had a hemoglobin A1c today and we are waiting for the results. She is already on metformin. The patient has symptoms of sleep apnea and I have ordered a consultation to sleep medicine for evaluation for sleep apnea. I have ordered blood work chest x-ray EKG and H. pylori study but the patient will not do the studies unless I call her and tell her to do the studies. Patient will not be a candidate for weight loss surgery unless she is considered diabetic from her hemoglobin A1c or has sleep apnea diagnosed by sleep study. Patient will not see the dietitian as of yet until we determine whether she meets criteria for weight loss surgery. I spent 66 minutes with this patient which included documentation. I will contact the patient once we have more information about whether she meets criteria for weight loss surgery. I did give the patient an eating plan which included 2 protein shakes of mAPPn life protein 30 g of protein at 9 AM and 3 PM. The patient will consume 4 ounces of protein with vegetables at 12 PM and at 6 PM she will consume 4 to 6 ounces of protein with vegetables and a half a cup of carbohydrate. The patient may have an apple or pear or 2 kiwis at 7 PM if needed. The patient was encouraged to exercise at least 40 minutes 4 times a week and to increase her intensity and add resistance training. She will consume at least 64 ounces of water on a daily basis. Patient already has a digital weight scale for her own weight and additional food scale. Family History Medical History Relation Comments Diabetes type II Father Heart attack Father Hyperlipidemia Father Hypertension Father Kidney failure Father Prostate cancer Father Heart attack Maternal Grandfather Hypertension Mother Situs inversus viscerum Mother Heart attack Paternal Grandmother Stroke Paternal Grandmother Relation Status Comments Father Maternal Grandfather Maternal Grandmother Mother Alive Paternal Grandfather Paternal Grandmother Other Sister Alive Social History Tobacco Use Types Packs/Day Years Used Date Smoking Tobacco: Former Cigarettes Q uit: 1998 Smokeless Tobacco: Never Alcohol Use Standard Drinks/Week Comments Not Currently 0 (1 standard drink = 0.6 oz pur e alcohol) rare Education Answer Date Recorded Are you interested in more education? Not on nick e 06/30/2022 Are you concerned about learning? Not on file 06/30/2022 No 06/30/2022 No 06/30/2022 Digital Access Answer Date Recorded No 07/29/2022 No 07/29/2022 Reliable internet access at home? Not on file 07/29/2022 Device with a working camera? 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 [email or web address] Not on file Not on file Not on file Last Filed Vital Signs Vital Sign Reading Time Taken Comments Blood Pressure 110/74 09/11/2021 1:00 PM EDT Pulse 64 09/11/2021 1:00 PM EDT Temperature 35.9 C (96.6 F) 09/11/2021 1:00 PM EDT Respiratory Rate - - Oxygen Saturation 98% 09/11/2021 1:00 PM EDT Inhaled Oxygen Concentration - - Weight 95.6 kg (210 lb 12.8 oz) 09/11/2021 1:00 PM EDT Height 162.6 cm (5' 4.02 ) 09/11/2021 1:00 PM ED T Body Mass Index 36.17 09/11/2021 1:00 PM EDT Plan of Treatment Health Maintenance Due Date Last Done Comments LIPID PANEL 1976 DEPRESSION SCREENING 1988 SMOKING Hx and SMOKELESS TOBACCO SCREENING 1989 HEPATITIS C SCREENING 1994 HIV ONE-TIME SCREENING (18-65 YEARS) 1994 PAP SMEAR 1997 MAMMOGRAM 2016 COLOGUARD 2021 COLONOSCOPY 2021 COLORECTAL CANCER SCREENING 2021 FIT TEST 2021 FOBT 2021 SIGMOIDOSCOPY 2021 VIRTUAL COLONOSCOPY 2021 Adult Td,Tdap Booster 04/17/2022 04/17/2012 COVID-19 VACCINE ( season) 2023 06/05/2021, 01/04/2021, 06/28/2020, Additional history exists HEPATITIS A VACCINES Aged Out No long er eligible based on patient's age to complete this topic HIB VACCINES Aged Out No longer eligi ble based on patient's age to complete this topic MENINGOCOCCAL VACCINES (ACWY) Aged Out No longer eligible based on patient's age to complete this topic MENINGOCOCCAL VACCINES (B) Aged Out N o longer eligible based on patient's age to complete this topic PNEUMOCOCCAL VACCINES (0-49 years) Aged Out No longer eligible based on patient's age to complete this topic Medical Devices Not on file Insurance HMO O O O O O HMO HMO HMO Care Teams House Steward/Stewardess Relationship Specialty Start Date End Date Mary Olvera MD [address] [place] [address] PCP - General Internal Medicine 05/18/21 Additional Source Comments The information contained in this document represents components of the legal health record. It is not the complete legal health record.[facility]
--- OUTSIDE RECORDS SUMMARY | 2024-10-26 16:21 | XMS_ITS | Clinical Summary ---
Author Organization [facility] Address [address] [place] [address] Care Team Providers Care Shower Attendant Name Role Phone Mary Olvera MD Primary Care Provider [phone] Social History Tobacco Use Types Packs/Day Years Used Date Smoking Tobacco: Never Smokeless Tobacco: Never Comments Unknown Sex and Gender Information Value Date Recorded Sex Assigned at Not on file Legal Sex Female 6:32 PM EST Gender Identity Not on file Sexual Orientation Not on file Obstetrics History Plan of Treatment Health Maintenance Due Date Last Done Comments Breast Cancer Screening 1976 Hepatitis B Vaccines (1 of 3 - 19+ 3-dose series) 05/05/1995 Cervical Cancer Screening: Pap Smear 1997 Depression Screening 03/04/2024 Colorectal Cancer Screening: Colonoscopy 04/01/2024 HIV Screening 04/01/2024 Hepatitis C Screening 04/01/2024 Social Influencers of Health Screening 04/01/2024 Influenza Vaccine (#1) 2024 , 11/24/2022, 12/03/2021, Additional history exists DTaP,Tdap,and Td Vaccines (3 - Td or Tdap) 03/09/2033 03/09/2023, 04/17/2012 COVID-19 Vaccine Completed 11/10/2023, , 06/05/2021, Additional history exists HIB Vaccines Aged Out No longer eligi ble based on patient's age to complete this topic HPV Vaccines Aged Out No longer eligi ble based on patient's age to complete this topic Hepatitis A Vaccines Aged Out No long er eligible based on patient's age to complete this topic IPV Vaccines Aged Out No longer eligi ble based on patient's age to complete this topic MMR Vaccines Aged Out No longer eligi ble based on patient's age to complete this topic Meningococcal ACWY Vaccine Aged Out N o longer eligible based on patient's age to complete this topic Meningococcal B Vaccine Aged Out No l onger eligible based on patient's age to complete this topic Pneumococcal Vaccine: Pediatrics (0 to 5 Years) and At-Risk Patients (6 to 49 Years) Aged Out No longer eligible based on patient's age to complete this topic RSV Immunization Patients Under 20 months Aged Out No longer eligible based on patient's age to complete this topic Varicella Vaccines Aged Out No longer eligible based on patient's age to complete this topic Insurance [facility] Care Teams Shower Attendant Relationship Specialty Start Date End Date Mary Olvera MD [address] [place] [address] DAQUAN Carl PCP - General Internal Medicine 01/28/18
== END 2024-10-26 15:10 | disposition home or self-care (01) ==
LOC: HO.HBS 14:37
PROVIDERS: PCP Internal Medicine; Visit Provider Physician Assistant Surgical
DX: E66.3 Overweight (principal); Z68.25 Body mass index [BMI] 25.0-25.9, adult; Z90.3 Acquired absence of stomach [part of]; Z98.84 Bariatric surgery status
CPT/HCPCS: 99212

== ENCOUNTER 2025-01-04 09:26 | Outpatient (AMB) | payer BC, SELFPAY ==
--- OUTSIDE RECORDS SUMMARY | 2024-05-26 10:30 | XMS_ITS ---
Author Organization [facility] [address] Address [address] [place] [address] Care Team Providers Care Medical Corps Officer Name Role Phone Mary Olvera Primary Care Provider COURTNEY Myers Unavailable [phone] SAMANTHA BORGES [phone] Encounters Encounter Location Date Provider Diagnosis [facility] [address] [place] [address] 05/26/2024 SAMANTHA BORGES Plan Of Treatment Next Appt Details Provider Name:COURTNEY RIOS, 02:45:00 PM, [address], [place], [address], Progress Notes * Jared MORELOB:05/1975 (49 yo F)Acc No.[id number]:05/26/2024 Patient: Jo CONN Provider: Shiv Borges MD :1975 A ge:49 Y S ex:Female Date:05/26/2024 Address: [address] [facility] Pcp:Mary Olvera Subjective: * Chief Complaints: * * Medical History: Objective: * Vitals: Assessment: Plan: * Treatment: * Images: Billing Information: * Visit Code: * Procedure Codes: * Electronic signature of BETH BORGES MD on 01/04/2025 at 10:35 AM EST Sign off status: Pending * Provider: Shiv Borges MD Date: 0 05/26/2024 Generated for Dillon patel/Cam/Hasmukhsmitting on: 03/06/2024 10:35 AM EST
--- OUTSIDE RECORDS SUMMARY | 2024-06-02 10:30 | XMS_ITS ---
Author Organization [facility] [address] [address] Address [address] [place] [address] Care Team Providers Care Assistant Manager Trainee Name Role Phone Mary Olvera Primary Care Provider COURTNEY Myers Unavailable [phone] SAMANTHA BORGES [phone] Encounters Encounter Location Date Provider Diagnosis [facility] [address] [place] [address] 06/02/2024 SAMANTHA BORGES Plan Of Treatment Next Appt Details Provider Name:COURTNEY RIOS, 02:45:00 PM, [address], [place], [address], Progress Notes * Harriett MORELAlonzoOB:05/1975 (49 yo F)Acc No.[id number]:06/02/2024 Patient: Jo CONN Provider: Shiv Borges MD :1975 A ge:49 Y S ex:Female Date:06/02/2024 Address: [address] [facility] Pcp:Mary Olvera Subjective: * Chief Complaints: * * Medical History: Objective: * Vitals: Assessment: Plan: * Treatment: * Images: Billing Information: * Visit Code: * Procedure Codes: * Electronic signature of BETH BORGES MD on 01/04/2025 at 10:35 AM EST Sign off status: Pending * Provider: Shiv Borges MD Date: 0 06/02/2024 Generated for Dillon patel/Cam/Hasmukhsmitting on: 03/06/2024 10:35 AM EST
--- OUTSIDE RECORDS SUMMARY | 2024-06-09 10:30 | XMS_ITS ---
Author Organization [facility] [address] Address [address] [place] [address] Care Team Providers Care Sanipractic Physician Name Role Phone Mary Olvera Primary Care Provider COURTNEY Myers Unavailable [phone] SAMANTHA BORGES [phone] Encounters Encounter Location Date Provider Diagnosis [facility] [place] [address] 06/09/2024 SAMANTHA BORGES Plan Of Treatment Next Appt Details Provider Name:COURTNEY RIOS, 02:45:00 PM, [address], [place], [address], Progress Notes * Harriett MORELAlonzoOB:05/1975 (49 yo F)Acc No.[id number]:06/09/2024 Patient: Jo CONN Provider: Shiv Borges MD :1975 A ge:49 Y S ex:Female Date:06/09/2024 Address: [address] [facility] Pcp:Mary Olvera Subjective: * Chief Complaints: * * Medical History: Objective: * Vitals: Assessment: Plan: * Treatment: * Images: Billing Information: * Visit Code: * Procedure Codes: * Electronic signature of BETH BORGES MD on 01/04/2025 at 10:35 AM EST Sign off status: Pending * Provider: Shiv Borges MD Date: 0 06/09/2024 Generated for Dillon patel/Cam/Hasmukhsmitting on: 03/06/2024 10:35 AM EST
--- NOTE | 2025-01-04 09:08 | MHC.OFFVISWM ---
VS Expanded 01/04/25 09:21 Height 5 ft 3 in Weight 142 lb BMI 25.2 Intake Visit Reasons: TV PO SWL 12/13/21 Allergies vancomycin Allergy (Severe, Verified 10/26/24 15:05) Rash tetracycline Adverse Reaction (Intermediate, Verified 10/26/24 15:05) told to avoid due to intercranial hypertension Medication List - Last Reconciled 01/04/25 by TIBURCIO Gabriel clotrimazole 1% 1 appl topical .BID HPI Comments Details: This a 49 yo female who is s/p LSG without hiatal hernia repair on 12/13/[address] Ryan. Presents for 3 year post op visit. She additionally underwent panniculectomy by Dr. Forman on 07/09/2023. Weight today is 149 pounds, with a BMI of 25.6. Initial weight 224.4 pounds since starting the program on 07/18/21 and operative weight 189.6 pounds. She feels as though she is in the best shape of her life. 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 Taking fiber gummy. She states things were going very well, previously recovering from R achilles tendon injury, she had recovered but re-injured her ankle after joining a new gym. There was an equipment malfunction where screws came off the pedal. She has been doing home physical therapy exercises that she learned from her previous injury and is showing some improvement. She continues to have pain of the right ankle. She is going to follow up with [facility] as this is who she has seen in the past and has an appointment with them tomorrow. Additionally, she is having difficulty with excess skin of the thighs. She describes a discomfort and pain of the medial thighs bilaterally with walking as they rub together and causes chafing. She has additionally noticed some redness, including rashes with blisters and oozing. She has to wear clothing that access a barrier between her thigh in her groin. She has tried clotrimazole ointment but this has not completely resolved the problem. Additionally she has difficulty with clothing fitting appropriately and frequently has to wash the area because it hurts. Present meal plan includes: ascent nutrition shake 1/2 scoop in 8 oz unsweetened [place] milk, 530-730, 8-10, 12-2 (25 gm per scoop) meal w 6 forks protein and 6 forks veg 60 oz additional water daily Exercise daily: cardio 500-600 clarisa daily weights PFSH Medical History Sleep apnea Pseudotumor cerebri Frequent headaches History of lumbar puncture Low back pain Constipation GERD (gastroesophageal reflux disease) Insomnia Anxiety History of panic attacks PTSD (post-traumatic stress disorder) Depression Surgical History S/P laparoscopic sleeve gastrectomy Hx of colonoscopy Hx of laparoscopy H/O section Social History Household Members Other:: minor children (3) Are you a primary palliative care physician to a significant other at home: Yes Do you presently have visiting nurse or other home services: No Alcohol intake: never Patient Tobacco Use Status: Former Tobacco user Tobacco use type: Cigarette service: No Current occupational status: employed Telehealth Telehealth Telehealth Platform: Telephone Location of provider rendering services: practice address Location of patient: address on file Patient Identification confirmed using: Name, : Yes Telehealth method: voice only Patient verbally consented to treatment: Yes Patient verbally consented to billing insurance company: Yes Patient informed of any privacy concerns related to visit: Yes Minutes spent on Phone/Video with Pt.: 15 Assessment & Plan Assessment & Plan (1) S/P laparoscopic sleeve gastrectomy: Comment: 12/2021 Code(s): Z98.84 - Bariatric surgery status Category: Surgical (2) S/P panniculectomy: Code(s): Z98.890 - Other specified postprocedural states Category: Surgical (3) Excess skin: Code(s): L98.7 - Excessive and redundant skin and subcutaneous tissue Category: Medical Plan Pt doing very well 3 years after bariatric surgery. She has achieved a healthy BMI and has a solid meal plan and exercise routine. She is dealing with excess skin of the upper thighs resulting in frequent painful, itchy, open rashes and chafing which are unrelieved by topical antifungals. In addition she is experiencing limitations/discomfort in activities of daily living, including walking. She requires the use of special clothing at all times to try to prevent discomfort but her issues have not been completely relieved by conservative measures. She would benefit from definitive treatment of thighplasty. Pt to come to office Jan 20 at 9am for photos and physical exam. Annual labs ordered. Orders: Orders Insulin Today Z98.84 - Bariatric surgery status Complete Blood Count Auto Diff Today Z98.84 - Bariatric surgery status Comprehensive Met. Panel Today Z98.84 - Bariatric surgery status Ferritin Today Z98.84 - Bariatric surgery status Vitamin D 25-OH Total Today Z98.84 - Bariatric surgery status Vitamin B12 and Folate Today Z98.84 - Bariatric surgery status C Reactive Protein Today Z98.84 - Bariatric surgery status TSH reflex Free T4 Today Z98.84 - Bariatric surgery status Vitamin A Today Z98.84 - Bariatric surgery status Vitamin B1 Today Z98.84 - Bariatric surgery status Zinc Today Z98.84 - Bariatric surgery status IRON PROFILE Today Z98.84 - Bariatric surgery status Lipid Panel Today Z98.84 - Bariatric surgery status Hemoglobin A1c Today Z98.84 - Bariatric surgery status
[2025-01-04 09:21] VITALS: BMI 25.2
--- OUTSIDE RECORDS SUMMARY | 2025-01-04 10:35 | XMS_ITS | Clinical Summary ---
Author Organization [facility] Address [address] [place] [address] Care Team Providers Care Leadership Intern Name Role Phone Mary Olvera MD Primary Care Provider [phone] Social History Tobacco Use Types Packs/Day Years Used Date Smoking Tobacco: Never Smokeless Tobacco: Never Comments Unknown Sex and Gender Information Value Date Recorded Sex Assigned at Not on file Legal Sex Female 6:32 PM EST Gender Identity Not on file Sexual Orientation Not on file Obstetrics History Plan of Treatment Health Maintenance Due Date Last Done Comments Breast Cancer Screening 1976 Colorectal Cancer Screening: Colonoscopy 1976 Hepatitis B Vaccines (1 of 3 - 19+ 3-dose series) 05/05/1995 Cervical Cancer Screening: Pap Smear 1997 Depression Screening 03/04/2024 HIV Screening 04/01/2024 Hepatitis C Screening 04/01/2024 Social Influencers of Health Screening 04/01/2024 Influenza Vaccine (#1) 2024 , 11/24/2022, 12/03/2021, Additional history exists DTaP,Tdap,and Td Vaccines (3 - Td or Tdap) 03/09/2033 03/09/2023, 04/17/2012 RSV Immunization Adult Patients (1 - 1-dose 75+ series) 05/05/2051 COVID-19 Vaccine Completed 11/10/2023, , 06/05/2021, Additional [...] patient's age to complete this topic Insurance [facility] Care Teams Leadership Intern Relationship Specialty Start Date End Date Mary Olvera MD [address] [place] [address] [place] PCP - General Internal Medicine 01/28/18
--- OUTSIDE RECORDS SUMMARY | 2025-01-04 10:35 | XMS_ITS | Patient Health Record ---
Author Organization [facility] [address] Address [address] [place] [address] Care Team Providers Care Marine Reporter Name Role Phone Mary Olvera Primary Care Provider Unavaillizette e COURTNEY RIOS Unavailable [phone] SAMANTHA MCCALL Unavailable [phone] Allergies Allergen (clinical drug ingredient) Drug/Non Drug Allergy documented on EMR Reaction Allergy Type Onset Date Status tetracycle (uncoded) adverse reaction to interceanial hypertension Allergy Active vancomycin Vancomycin rash Drug Allergy Activ e Results Component Value Reference Range Notes Comp. Metabolic Panel [id number] Reviewed date:07/15/2024 01:06:26 PM Interpretation: Performing Lab:[facility], [address] [facility], [place], Phone - [phone], Director - Dana Notes/Report: Glucose 79 70-99 [...] counseling a nd surveillance (Z71.3) Referred Provider Mayr Olvera Referred Provider Specialty Weight Manag ement Referral Priority Routine Medications Medication SIG (Take, Route, Fr equency, Duration) Notes Start Date End Date Status Stool Softener Activ e Wegovy 1.7 MG/0.75ML Inject 0.75 mL Subc utaneous once a week; Duration: 30 days A ctive Wegovy 1.7 MG/0.75ML 0.75 mL Subcutaneou s; Duration: 30 days Active Social History Tobacco [...] Status W/U Status Risk Notes Problem Overweight (825995221) Overweight (E66.3) Active confirmed Problem Benign intracranial hypertension (43086140) Intracranial hypertension (G93.2) Active confirmed Vital Signs Heart Rate 89 /min 12/24/2024 Blood pressure diastolic 70 mm Hg 12/24/2024 Oximetry 98 % 12/24/2024 Height 63 in 12/24/2024 Blood pressure systolic 122 mm Hg 12/24/2024 Weight 141.9 lbs 12/24/2024 BMI 25.13 kg/m2 12/24/2024 Encounters Encounter Location Date Provider Diagnosis [facility] [address] [place] [address] 05/19/2024 COURTNEY GABRIEL Overweight E66.3 ; B vita mass index [BMI] 28.0-28.9, adult Z68.28 and Intracranial hypertension G93.[address] [facility] [address] [place] [address] 06/16/2024 COURTNEY GABRIEL Overweight E66.3 ; B VT 27.0-27.9,adult Z68.27 and Intracranial hypertension G93.[address] [facility] [address] [place] [address] 07/14/2024 COURTNEY GABRIEL Overweight E66.3 ; B VT 27.0-27.9,adult Z68.27 ; Dietary counseling Z71.3 and Intracranial hypertension G93.[address] [facility] [address] [address] 08/14/2024 COURTNEY GABRIEL Overweight E66.3 ; B VT 27.0-27.9,adult Z68.27 ; Dietary counseling Z71.3 and Encounter for examination of blood pressure without abnormal findings Z01.[address] [facility] [address] [address] 09/14/2024 COURTNEY GABRIEL Overweight E66.3 ; B VT 27.0-27.9,adult Z68.27 ; Dietary counseling Z71.3 and Encounter for examination of blood pressure without abnormal findings Z01.[address] [address] [address] 10/20/2024 COURTNEY GABRIEL Overweight E66.3 ; B VT 26.0-26.9,adult Z68.26 ; Dietary counseling Z71.3 and Encounter for examination of blood pressure without abnormal findings Z01.[address] [facility] [address] 11/23/2024 COURTNEY GABRIEL Overweight E66.3 ; B VT 26.0-26.9,adult Z68.26 ; Dietary counseling Z71.3 and Encounter for examination of blood pressure without abnormal findings Z01.[address] [address] [address] 12/24/2024 COURTNEY GABRIEL Overweight E66.3 ; B VT 25.0-25.9,adult Z68.25 ; Dietary counseling Z71.3 ; Foot pain, left M79.672 and Encounter for examination of blood pressure without abnormal findings Z01.30 [facility] [address] [address] 05/19/2024 COURTNEY GABRIEL [facility] [address] [address] 05/20/2024 COURTNEY GABRIEL [facility] [address] [address] 06/17/2024 COURTNEY GABRIEL [facility] [address] [place] [address] 09/16/2024 COURTNEY GABRIEL [facility] [address] [place] [address] 10/20/2024 COURTNEY GABRIEL Overweight E66.[address] [facility] [address] [place] [address] 11/23/2024 COURTNEY GABRIEL Overweight E66.3 [facility] [address] [place] [address] 11/30/2024 COURTNEY GABRIEL [facility] [address] [place] [address] 09/16/2024 COURTNEY GABRIEL Assessments Encounter Date Diagnosis [...] track activity level. Consider using apps like Wire, myfitIncellDxpal, lose it, stick as needed for self-monitoring and weight management. Consider group exercises. Consider hiring a personal fitness trainer. Regular exercise is chung to sustainable [...] counseling including the office of Dr. Ruiz sel[place] and Dr Navarrete at [facility]. We would like to cover regular topics [...] Dictation was accomplished with the use of [employer] voice recognition software, which is prone to [...] track activity level. Consider using apps like Wire, myfitIncellDxpal, lose it, stick as needed for self-monitoring and weight management. Consider group exercises. Consider hiring a personal fitness trainer. Regular exercise is chung to sustainable [...] including the office of Dr. Ruiz in [place] and Dr Navarrete at [facility]. We would like to cover regular topics [...] Dictation was accomplished with the use of [employer] voice recognition software, which is prone to [...] Dictation was accomplished with the use of [employer] voice recognition software, which is prone to [...] Dictation was accomplished with the use of [employer]Day voice recognition software, which is prone to [...] Dictation was accomplished with the use of [employer]Day voice recognition software, which is prone to [...] Dictation was accomplished with the use of MedDay voice recognition software, which is prone to [...] it any questions/concerns arise. Case discussed with Karnia LOVELACE who reviewed the assessment and plan. Chart, medications, labs, vital signs reviewed. Dictation was accomplished with the use of [employer] voice recognition software, which is prone to [...] Dictation was accomplished with the use of [employer]Day voice recognition software, which is prone to [...] Dictation was accomplished with the use of MedDay voice recognition software, which is prone to [...] Dictation was accomplished with the use of [employer]Day voice recognition software, which is prone to [...] Dictation was accomplished with the use of MedDay voice recognition software, which is prone to medical misidentifications and grammatical errors. This are unintentional and the practitioner does try to identify and correct these, but some could still be present. Please do not hesitate to contact practitioner for clarification. 10/20/2024 Overweight (ICD-10 - E66.3) 11/23/2024 Overweight (ICD-10 - E66.3) Jo is a [...] mg. Congratulated on increasing her muscle mass. 11/23/2024: BMI 26.29, weight 148.4 continue Wegovy 1.7 mg at this time. Patient is here for weight management followup. [...] Dictation was accomplished with the use of MedDay voice recognition software, which is prone to medical misidentifications and grammatical errors. This are unintentional and the practitioner does try to identify and correct these, but some could still be present. Please do not hesitate to contact practitioner for clarification. 11/23/2024 Overweight (ICD-10 - E66.3) 12/24/2024 Overweight (ICD-10 - E66.3) Jo is a [...] mg. Congratulated on increasing her muscle mass. 11/23/2024: BMI 26.29, weight 148.4 continue Wegovy 1.7 mg at this time. 12/24/2024: BMI 25.13, weight 141.9 continue Wegovy 1.7 mg weekly. #Right thigh pain: Utilize Biofreeze, massage the area and Advil. Patient may be compensating on this thigh as she does have a left torn foot ligament. Patient is here for weight management followup. [...] Dictation was accomplished with the use of MedDay voice recognition software, which is prone to medical misidentifications and grammatical errors. This are unintentional and the practitioner does try to identify and correct these, but some could still be present. Please do not hesitate to contact practitioner for clarification. 12/24/2024 BMI 25.0-25.9,adult (ICD-10 - Z68.25) Jo is a pleasant 49-year-old female who [...] mg. Congratulated on increasing her muscle mass. 11/23/2024: BMI 26.29, weight 148.4 continue Wegovy 1.7 mg at this time. 12/24/2024: BMI 25.13, weight 141.9 continue Wegovy 1.7 mg weekly. #Right thigh pain: Utilize Biofreeze, massage the area and Advil. Patient may be compensating on this thigh as she does have a left torn foot ligament. Patient is here for weight management followup. [...] Dictation was accomplished with the use of MedDay voice recognition software, which is prone to medical misidentifications and grammatical errors. This are unintentional and the practitioner does try to identify and correct these, but some could still be present. Please do not hesitate to contact practitioner for clarification. 12/24/2024 Dietary counseling (ICD-10 - Z71.3) Jo is [...] mg. Congratulated on increasing her muscle mass. 11/23/2024: BMI 26.29, weight 148.4 continue Wegovy 1.7 mg at this time. 12/24/2024: BMI 25.13, weight 141.9 continue Wegovy 1.7 mg weekly. #Right thigh pain: Utilize Biofreeze, massage the area and Advil. Patient may be compensating on this thigh as she does have a left torn foot ligament. Patient is here for weight management followup. [...] Dictation was accomplished with the use of MedDay voice recognition software, which is prone to medical misidentifications and grammatical errors. This are unintentional and the practitioner does try to identify and correct these, but some could still be present. Please do not hesitate to contact practitioner for clarification. 11/23/2024 BMI 26.0-26.9,adult (ICD-10 - Z68.26) Jo is [...] mg. Congratulated on increasing her muscle mass. 11/23/2024: BMI 26.29, weight 148.4 continue Wegovy 1.7 mg at this time. Patient is here for weight management followup. [...] Dictation was accomplished with the use of MedDay voice recognition software, which is prone to medical misidentifications and grammatical errors. This are unintentional and the practitioner does try to identify and correct these, but some could still be present. Please do not hesitate to contact practitioner for clarification. 10/20/2024 Dietary counseling (ICD-10 - Z71.3) Jo [...] Dictation was accomplished with the use of MedDay voice recognition software, which is prone to [...] Dictation was accomplished with the use of MedDay voice recognition software, which is prone to [...] Dictation was accomplished with the use of MedDay voice recognition software, which is prone to [...] Dictation was accomplished with the use of MedDay voice recognition software, which is prone to [...] Dictation was accomplished with the use of MedDay voice recognition software, which is prone to [...] track activity level. Consider using apps like Wire, [employer] Biosciencespal, lose it, stick as needed for self-monitoring and weight management. Consider group exercises. Consider hiring a personal fitness trainer. Regular exercise is chung to sustainable [...] including the office of Dr. Ruiz in [place] and Dr Navarrete at [facility]. We would like to cover regular topics [...] Dictation was accomplished with the use of MedDay voice recognition software, which is prone to [...] Dictation was accomplished with the use of MedDay voice recognition software, which is prone to [...] Dictation was accomplished with the use of MedDay voice recognition software, which is prone to [...] Dictation was accomplished with the use of MedDay voice recognition software, which is prone to [...] Dictation was accomplished with the use of MedDay voice recognition software, which is prone to medical misidentifications and grammatical errors. This are unintentional and the practitioner does try to identify and correct these, but some could still be present. Please do not hesitate to contact practitioner for clarification. 11/23/2024 Dietary counseling (ICD-10 - Z71.3) Jo is [...] mg. Congratulated on increasing her muscle mass. 11/23/2024: BMI 26.29, weight 148.4 continue Wegovy 1.7 mg at this time. Patient is here for weight management followup. [...] Dictation was accomplished with the use of MedDay voice recognition software, which is prone to medical misidentifications and grammatical errors. This are unintentional and the practitioner does try to identify and correct these, but some could still be present. Please do not hesitate to contact practitioner for clarification. 12/24/2024 Foot pain, left (ICD-10 - M79.672) Jo is a pleasant 49-year-old female who [...] mg. Congratulated on increasing her muscle mass. 11/23/2024: BMI 26.29, weight 148.4 continue Wegovy 1.7 mg at this time. 12/24/2024: BMI 25.13, weight 141.9 continue Wegovy 1.7 mg weekly. #Right thigh pain: Utilize Biofreeze, massage the area and Advil. Patient may be compensating on this thigh as she does have a left torn foot ligament. Patient is here for weight management followup. [...] Dictation was accomplished with the use of MedDay voice recognition software, which is prone to medical misidentifications and grammatical errors. This are unintentional and the practitioner does try to identify and correct these, but some could still be present. Please do not hesitate to contact practitioner for clarification. 12/24/2024 Encounter for examination of blood pressure without [...] mg. Congratulated on increasing her muscle mass. 11/23/2024: BMI 26.29, weight 148.4 continue Wegovy 1.7 mg at this time. 12/24/2024: BMI 25.13, weight 141.9 continue Wegovy 1.7 mg weekly. #Right thigh pain: Utilize Biofreeze, massage the area and Advil. Patient may be compensating on this thigh as she does have a left torn foot ligament. Patient is here for weight management followup. [...] Dictation was accomplished with the use of MedDay voice recognition software, which is prone to medical misidentifications and grammatical errors. This are unintentional and the practitioner does try to identify and correct these, but some could still be present. Please do not hesitate to contact practitioner for clarification. 11/23/2024 Encounter for examination of blood pressure without [...] mg. Congratulated on increasing her muscle mass. 11/23/2024: BMI 26.29, weight 148.4 continue Wegovy 1.7 mg at this time. Patient is here for weight management followup. [...] Dictation was accomplished with the use of MedDay voice recognition software, which is prone to [...] Dictation was accomplished with the use of MedDay voice recognition software, which is prone to medical misidentifications and grammatical errors. This are unintentional and the practitioner does try to identify and correct these, but some could still be present. Please do not hesitate to contact practitioner for clarification. Plan Of Treatment Pending Test Test Name Order Date COMPREHENSIVE METABOLIC PANEL 07/14/2024 Next Appt Details Provider Name:COURTNEY RIOS, 02:45:00 PM, [address], [place], [address], Insurance Providers Payer Name Payer Address Payer Phone Subscriber Number Group Number Insured Name Patient Relationship to Insured Coverage Start Date Coverage End Date [facility] [address] [place] [address] [phone] [id number] Jo Mcknight Self - patient is the insured Medications Administered Medication Instructions Date of Administration Dosage Notes Semaglutide 05/19/2024 0.25 mg Medical (General) History Medical History History ICD Code weight gain/loss headaches anxiety Intracranial hypotension, spontaneous G9 6.811 Surgical History Surgery Date(Month/Year) 09/04/2006 08/13/2009 Hospitalization History Reason Date(Month/Year) 12/13/2021 09/04/2006
--- OUTSIDE RECORDS SUMMARY | 2025-01-04 10:35 | XMS_ITS | Clinical Summary ---
Author Organization [facility] Address [address] [place] [address] Care Team Providers Care Fork Operator Name Role Phone Unavailable Primary Care Provider [...] series) 05/05/1995 Mammogram/Breast Imaging 2016 COVID-19 Vaccine (2024-2 6 season) 2024 Influenza (#1) 2024 Zoster (Shingrix) (1 of [...]
--- OUTSIDE RECORDS SUMMARY | 2025-01-04 10:36 | XMS_ITS | Clinical Summary ---
Author Organization [facility] Address [address] [address] Phone Care Team Providers Care Check Cashier Name Role Phone Mary Olvera MD Primary [...] and EKG. Patient has been cleared by [facility] to undergo weight loss surgery. 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[email or web address] Not on file Not on file Not [...] COLONOSCOPY 2021 Adult Td,Tdap Booster 04/17/2022 04/17/2012 INFLUENZA VACCINE (#1) 2024 , 10/23/2019, 11/03/2018, Additional history exists COVID-19 VACCINE ( season) 2024 06/05/2021, 01/04/2021, 06/28/2020, Additional history exists HEPATITIS [...] topic Medical Devices Not on file Insurance O O O [place] [address] [place] [address] [place] [address] [place] [address] HMO Care Teams Check Cashier Relationship Specialty Start Date End Date Mary Olvera MD [address] [place] [address] PCP - General Internal Medicine 05/18/21 Additional Source Comments The information contained in this document represents components of the legal health record. It is not the complete legal health record.[facility]
== END 2025-01-04 09:37 | disposition home or self-care (01) ==
LOC: HO.HBS 09:26
PROVIDERS: PCP Internal Medicine; Visit Provider Physician Assistant Surgical
DX: E66.3 Overweight (principal); Z68.25 Body mass index [BMI] 25.0-25.9, adult; L98.7 Excessive and redundant skin and subcutaneous tissue; Z90.3 Acquired absence of stomach [part of]; Z98.84 Bariatric surgery status; Z98.890 Other specified postprocedural states
CPT/HCPCS: 98967

== ENCOUNTER 2025-01-19 11:25 | Outpatient (AMB) | payer BC, SELFPAY ==
--- NOTE | 2025-01-19 11:31 | A.OFFVIS_ITS ---
VS Expanded 01/19/25 11:51 BP 102/61 Blood Pressure Location Rt brachial Blood Pressure Position Sitting Pulse 67 Pulse Source Pulse Oximeter Temp 98.0 F Temperature Source Temporal Artery Scan Pulse Oximetry 100 Oxygen Delivery Method Room Air Height 5 ft 4 in Weight 136 lb BMI 23.3 Body Fat % 25.3 Body Fat Mass 4.4 Fat Free Mass 101.4 Visceral Fat Rating 4.0 Body Water % 53.1 Body Water Mass 72.0 Muscle Mass/Score 96.4 Basal Metabolic Rate/Score 1,351 Intake Visit Reasons: OV PO SWL OV -P.E.& Photos (per AK) Allergies vancomycin Allergy (Severe, Verified 01/19/25 11:53) Rash tetracycline Adverse Reaction (Intermediate, Verified 01/19/25 11:53) told to avoid due to intercranial hypertension Medication List - Last Reconciled 01/19/25 by TIBURCIO Gabirel clotrimazole 1% 1 appl topical .BID semaglutide (weight loss) (Wegovy) 1.7 mg subcut QWEEK HPI Comments Details: This a 49 yo female who is s/p LSG without hiatal hernia repair on 12/13/[address] Ryan. Presents for 3 year post op visit. She additionally underwent panniculectomy by Dr. Forman on 07/09/2023. Weight today is 136 pounds, with a BMI of 23.3. Initial weight 224.4 pounds since starting the program on 07/18/21 and operative weight 189.6 pounds. She feels as though she is in the best shape of her life. 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 Taking fiber gum my. She states things were going very well, previously recovering from R achilles tendon injury, she had recovered but re-injured her ankle after joining a new gym. There was an equipment malfunction where screws came off the pedal. She has been doing home physical therapy exercises that she learned from her previous injury and is showing some improvement. She continues to have pain of the right ankle. She is going to follow up with new [facility] as this is who she has seen in the past and has an appointment with them tomorrow. Additionally, she is having difficulty with excess skin of the thighs. She describes a discomfort and pain of the medial thighs bilaterally with walking as they rub together and causes chafing. She has additionally noticed some redness, including rashes with blisters and oozing. She finds this to be very gross and difficult to take care of and keep clean. These rashes have increased recently as she has lost a little more weight. She has to wear clothing that provides a barrier between her thigh in her groin. She has to frequently change her clothing due to moisture/sweating on the clothes. She has tried clotrimazole ointment but this has not completely resolved the problem. Additionally she has difficulty with clothing fitting appropriately and frequently has to wash the area because it hurts. Present meal plan includes: Gold standard shake 3-4 scoops each in 8 oz water (25 gm per scoop) so getting 75-100g protein per day just from shakes meal w 4-6 forks protein and 6 forks veg- usually a salad with protein 60 oz additional water daily Exercise daily: cardio 500-600 clarisa daily weights has not been to the gym in 2 weeks due to back injury and has to have foot surgery in March [facility] Medical History Sleep apnea Pseudotumor cerebri Frequent headaches History of lumbar puncture Low back pain Constipation GERD (gastroesophageal reflux disease) Insomnia Anxiety History of panic attacks PTSD (post-traumatic stress disorder) Depression Surgical History S/P laparoscopic sleeve gastrectomy Hx of colonoscopy Hx of laparoscopy H/O section Social History Household Members Other:: minor children (3) Are you a primary manager long term care to a significant other at home: Yes Do you presently have visiting nurse or other home services: No Alcohol intake: never Patient Tobacco Use Status: Former Tobacco user Tobacco use type: Cigarette service: No Current occupational status: employed Physical Exam Vital Signs: Last Vital Signs Temp 98.0 F 01/19/25 11:51 Pulse 67 01/19/25 11:51 BP 102/61 01/19/25 11:51 Pulse Ox 100 01/19/25 11:51 Oxygen Delivery Method Room Air 01/19/25 11:51 BMI result Body Mass Index 23.3 Const General: cooperative, comfortable and no acute distress Orientation/consciousness: patient oriented x3 Skin Other: excess skin of upper thighs with multiple skin folds medially, skin of thighs touch from groin to knee Neuro General: patient oriented x3 Assessment & Plan Assessment & Plan (1) S/P laparoscopic sleeve gastrectomy: Comment: 12/2021 Code(s): Z98.84 - Bariatric surgery status Category: Medical (2) Excess skin: Code(s): L98.7 - Excessive and redundant skin and subcutaneous tissue Category: Medical Plan Pt doing very well 3 years after bariatric surgery. She has achieved a healthy BMI. She is dealing with excess skin of the upper thighs resulting in frequent painful, itchy, open rashes and chafing which are unrelieved by topical antifungals. In addition she is experiencing limitations/discomfort in activities of daily living, including walking. She requires the use of special clothing at all times to try to prevent discomfort but her issues have not been completely relieved by conservative measures. She would benefit from definitive treatment of thighplasty. We discussed her nutrition plan and she is likely getting too much protein for her current needs. We discussed the importance of an appropriate meal plan prior to any upcoming surgery. She will change meal plan to 2 shakes per day, each with 1 scoop powder and 1 meal of 6f/6f. This will get about 70g protein per day. She understands she must hold Wegovy 7 days or more prior to any future procedures. Photos taken today, will submit to insurance.
[2025-01-19 11:51] VITALS: BP 102/61; PULSE 67; TEMP 36.7; O2SAT 100; BMI 23.3
== END 2025-01-19 14:05 | disposition home or self-care (01) ==
LOC: HO.HBS 11:26
PROVIDERS: PCP Internal Medicine; Visit Provider Physician Assistant Surgical
DX: M79.3 Panniculitis, unspecified (principal); L98.7 Excessive and redundant skin and subcutaneous tissue; Z98.84 Bariatric surgery status
CPT/HCPCS: 99214